=== PATIENT | female | born 1980 | race Caucasian/White ===

== ENCOUNTER 2020-01-12 20:26 | Inpatient (IN) | payer MEDICAID ==
[~2020-01-12] VITALS: Ht 157.5 cm; Wt 80.0 kg
[2020-01-12] MEDS ORDERED: heparin 25,000 UNIT/250ml bag 250 ML IV SCH (20:35)
[2020-01-12 21:00] LABS: BASOPHILS # (AUTO) 0.1 X10'3 (0-0.2); BASOPHILS % (AUTO) 0.8 % (0-1); EOSINOPHILS % (AUTO) 0.6 % (0-6); HEMATOCRIT 44.9 % (35.0-45.0); HEMOGLOBIN 14.8 g/dl (12.0-16.0); LYMPHOCYTES # (AUTO) 1.6 X10'3 (1.1-4.8); LYMPHOCYTES % (AUTO) 22.9 % (21-51); MEAN CORPUSCULAR HEMOGLOBIN 29.4 PG (27.0-31.0); MEAN CORPUSCULAR VOLUME 89.1 FL (78-98); MEAN PLATELET VOLUME 8.9 FL (7.4-10.4); MONOCYTES # (AUTO) 0.8 X10'3 (0-0.9); MONOCYTES % (AUTO) 10.7 % (2-12); NEUTROPHILS # (AUTO) 4.6 X10'3 (1.8-7.7); PLATELET COUNT 208 X10'3 (140-440); RED BLOOD COUNT 5.04 X10'6 (4.20-5.60); RED CELL DISTRIBUTION WIDTH 17.9 % (11.5-14.5)
[2020-01-12] MEDS ORDERED: CARV3.122 PO (21:11)
[2020-01-12] MEDS ORDERED: FURO-150 PO (21:11)
[2020-01-12] MEDS ORDERED: SPIR25TA5 PO (21:11)
[2020-01-12] MEDS ORDERED: LISI-600 PO (21:11)
[2020-01-12 21:13] LABS: ALANINE AMINOTRANSFERASE 26 U/L (12-78); ALBUMIN 2.7 G/DL (3.4-5.0); ALBUMIN/GLOBULIN RATIO 0.7 (1.1-1.5); ALKALINE PHOSPHATASE 98 IU/L (46-116); ANION GAP 7 (8-16); ASPARTATE AMINO TRANSFERASE 21 U/L (10-37); BILIRUBIN,TOTAL 1.1 MG/DL (0.1-1.0); BLOOD UREA NITROGEN 12 MG/DL (7-18); BUN/CREATININE RATIO 11.8 (6.6-38.0); CHLORIDE 105 MMOL/L (99-107); CREATININE 1.02 MG/DL (0.40-0.90); GLUCOSE 112 MG/DL (70-104); POTASSIUM 3.3 MMOL/L (3.5-5.1); SODIUM 142 MMOL/L (135-145); TOTAL CARBON DIOXIDE 29.7 MMOL/L (24-32); TOTAL PROTEIN 6.6 G/DL (6.4-8.2); eGFR 60 ML/MIN
[2020-01-12 21:20] LABS: PARTIAL THROMBOPLASTIN TIME 76 SECONDS (22-32)
[2020-01-12] MEDS ORDERED: iohexol 350MG/ML 100ml bottle IV ONE (22:12)
--- NOTE | 2020-01-12 22:14 | NUR ---
DR. MCLAUGHLIN STATED PATIENT COULD EAT
--- NOTE | 2020-01-12 23:25 | NUR ---
DR. JONES AT BEDSIDE ASSESSING PATIENT FOR ADMISSION
[2020-01-12] MEDS ORDERED: ondansetron/PF 4mg/2ml inj IV PRN (23:35)
[2020-01-12] MEDS ORDERED: potassium Cl 20 mEq SR tablet PO PRN ×2 (23:35)
[2020-01-12] MEDS ORDERED: mag hydrox/Alum hydrox/simeth 30ml oral suspension PO PRN (23:35)
[2020-01-12] MEDS ORDERED: potassium CL 10mEq/100ml bag 100 ML IV PRN ×2 (23:35)
[2020-01-12] MEDS ORDERED: magnesium hydroxide 30ml (MOM) UD suspension PO PRN (23:35)
[2020-01-12] MEDS: heparin 25,000 UNIT/250ml bag 250 ML IV SCH (23:45)
[2020-01-13] VITALS (8 sets, daily range): BP systolic 106–146; BP diastolic 64–96
--- NOTE | 2020-01-13 02:07 | NUR ---
Called Dr. Rangel regarding the pain medication. He ordered Narco 5/325 q4hr PRN for Moderate to Severe pain. No other orders were given at this time.
[2020-01-13] MEDS: HYDROcodone/acetaminophen 5mg/325mg tablet PO PRN ×4 (02:22→18:39)
[2020-01-13 03:28] LABS: BASOPHILS # (AUTO) 0.1 X10'3 (0-0.2); BASOPHILS % (AUTO) 0.8 % (0-1); EOSINOPHILS % (AUTO) 0.7 % (0-6); HEMATOCRIT 43.5 % (35.0-45.0); HEMOGLOBIN 14.4 g/dl (12.0-16.0); LYMPHOCYTES # (AUTO) 1.6 X10'3 (1.1-4.8); LYMPHOCYTES % (AUTO) 23.6 % (21-51); MEAN CORPUSCULAR HEMOGLOBIN 29.5 PG (27.0-31.0); MEAN CORPUSCULAR VOLUME 89.2 FL (78-98); MEAN PLATELET VOLUME 8.8 FL (7.4-10.4); MONOCYTES # (AUTO) 0.9 X10'3 (0-0.9); MONOCYTES % (AUTO) 13.1 % (2-12); NEUTROPHILS # (AUTO) 4.2 X10'3 (1.8-7.7); NEUTROPHILS % (AUTO) 61.8 % (42-75); PLATELET COUNT 186 X10'3 (140-440); RED BLOOD COUNT 4.88 X10'6 (4.20-5.60); RED CELL DISTRIBUTION WIDTH 17.5 % (11.5-14.5); WHITE BLOOD COUNT 6.8 X10'3 (4.5-11.0)
[2020-01-13 03:45] LABS: ALANINE AMINOTRANSFERASE 16 U/L (12-78); ALBUMIN 2.4 G/DL (3.4-5.0); ALBUMIN/GLOBULIN RATIO 0.7 (1.1-1.5); ALKALINE PHOSPHATASE 95 IU/L (46-116); ANION GAP 10 (8-16); ASPARTATE AMINO TRANSFERASE 22 U/L (10-37); BILIRUBIN,TOTAL 1.2 MG/DL (0.1-1.0); BLOOD UREA NITROGEN 14 MG/DL (7-18); CALCIUM 8.9 MG/DL (8.5-10.1); CHLORIDE 105 MMOL/L (99-107); GLUCOSE 203 MG/DL (70-104); POTASSIUM 3.7 MMOL/L (3.5-5.1); SODIUM 139 MMOL/L (135-145); TOTAL CARBON DIOXIDE 23.9 MMOL/L (24-32); eGFR 61 ML/MIN
[2020-01-13] MEDS: heparin 25,000 UNIT/250ml bag 250 ML IV SCH (05:39)
--- NOTE | 2020-01-13 06:21 | NUR ---
Problems reprioritized. Patient report shelby Anderson, questions answered & plan of care reviewed with .
--- NOTE | 2020-01-13 06:30 | NUR ---
Patient in room MED 308. I have received report from Madan EDWARDS and had the opportunity to ask questions and assume patient care.
[2020-01-13] MEDS: K and/or MAG REPLACEMENT MC SCH ×2 (07:48→20:00)
[2020-01-13] MEDS ORDERED: carVEDilol 3.125mg tablet PO SCH (08:00)
[2020-01-13] MEDS ORDERED: CHOL50004 PO (10:10)
[2020-01-13] MEDS ORDERED: INSU100I39 SQ (10:10)
[2020-01-13] MEDS ORDERED: HYDR-4069 PO (10:10)
[2020-01-13] MEDS ORDERED: INSU100I31 SQ (10:10)
[2020-01-13] MEDS ORDERED: IBUP-1985 PO (10:13)
[2020-01-13] MEDS: levoFLOXACIN-Levaquin 500mg/D5 100 ML IV SCH (11:57)
--- NOTE | 2020-01-13 14:29 | NUR ---
DR. STILES PAGED: PAGER ID: [phone] MESSAGE: [phone]: [facility] REC REVIEWED, WAITING FOR YOU. CAN WE START HYPERGLYCEMIC PROTOCOL? TY NURSE JEREMIAH [id number]
[2020-01-13] MEDS: vancomycin/NS 1 GM ADD-VANTAGE 250 ML IV SCH (14:36)
--- NOTE | 2020-01-13 15:55 | NUR ---
dr. arteaga paged: PAGER ID: [phone] MESSAGE: [phone]: CLIFFORD - changed her mind. wants to be Full Code. Maybe mental health eval too nurse yonny [phone]
--- NOTE | 2020-01-13 18:30 | NUR ---
Problems reprioritized. Patient report given, questions answered & plan of care reviewed with Madan EDWARDS.
[2020-01-13] MEDS: insulin Lispro (HumaLOG) vial - multi-dose SQ SCH (18:38)
[2020-01-13] MEDS: furosemide 20 MG/2 ML vial IV SCH (19:29)
[2020-01-13] MEDS: carvedilol 6.25mg tablet PO SCH (19:29)
[2020-01-13] MEDS: hydrALAZINE 25 MG tablet PO SCH (19:29)
[2020-01-13] MEDS: lisinopril 20mg tablet PO SCH (21:39)
[2020-01-13] MEDS: insulin glargine (Lantus) pen - multi-dose SQ SCH (21:44)
[2020-01-14] MEDS: vancomycin/NS 1 GM ADD-VANTAGE 250 ML IV SCH ×3 (00:46→23:13)
[2020-01-14] MEDS: heparin 25,000 UNIT/250ml bag 250 ML IV SCH ×2 (00:54→23:25)
[2020-01-14] MEDS: HYDROcodone/acetaminophen 5mg/325mg tablet PO PRN ×3 (01:59→21:29)
[2020-01-14 02:00] VITALS: BP 96/71
[2020-01-14 04:15] LABS: BASOPHILS % (AUTO) 0.7 % (0-1); EOSINOPHILS # (AUTO) 0.1 X10'3 (0-0.9); HEMATOCRIT 40.9 % (35.0-45.0); HEMOGLOBIN 13.3 g/dl (12.0-16.0); LYMPHOCYTES # (AUTO) 1.6 X10'3 (1.1-4.8); MEAN CORPUSCULAR HEMOGLOBIN 29.1 PG (27.0-31.0); MEAN CORPUSCULAR HGB CONC 32.6 g/dL (33.0-36.5); MEAN CORPUSCULAR VOLUME 89.4 FL (78-98); MEAN PLATELET VOLUME 9.1 FL (7.4-10.4); MONOCYTES # (AUTO) 0.9 X10'3 (0-0.9); MONOCYTES % (AUTO) 13.1 % (2-12); NEUTROPHILS # (AUTO) 3.9 X10'3 (1.8-7.7); NEUTROPHILS % (AUTO) 60.2 % (42-75); PLATELET COUNT 194 X10'3 (140-440); RED BLOOD COUNT 4.58 X10'6 (4.20-5.60); RED CELL DISTRIBUTION WIDTH 17.5 % (11.5-14.5); WHITE BLOOD COUNT 6.5 X10'3 (4.5-11.0)
[2020-01-14 04:33] LABS: ALANINE AMINOTRANSFERASE 24 U/L (12-78); ALBUMIN 2.2 G/DL (3.4-5.0); ALBUMIN/GLOBULIN RATIO 0.6 (1.1-1.5); ALKALINE PHOSPHATASE 103 IU/L (46-116); ANION GAP 7 (8-16); ASPARTATE AMINO TRANSFERASE 22 U/L (10-37); BILIRUBIN,TOTAL 0.6 MG/DL (0.1-1.0); BLOOD UREA NITROGEN 14 MG/DL (7-18); BUN/CREATININE RATIO 13.7 (6.6-38.0); CALCIUM 8.3 MG/DL (8.5-10.1); CHLORIDE 102 MMOL/L (99-107); CREATININE 1.02 MG/DL (0.40-0.90); GLUCOSE 234 MG/DL (70-104); POTASSIUM 3.8 MMOL/L (3.5-5.1); SODIUM 134 MMOL/L (135-145); TOTAL CARBON DIOXIDE 25.5 MMOL/L (24-32); TOTAL PROTEIN 5.9 G/DL (6.4-8.2); eGFR 60 ML/MIN
[2020-01-14 06:00] VITALS: BP 102/74
--- NOTE | 2020-01-14 06:20 | NUR ---
Problems reprioritized. Patient report given Pee, questions answered & plan of care reviewed with .
--- NOTE | 2020-01-14 06:46 | NUR ---
Patient in room MED 308. I have received report from GRACE Lucas and had the opportunity to ask questions and assume patient care.
[2020-01-14] MEDS: insulin Lispro (HumaLOG) vial - multi-dose SQ SCH ×3 (08:00→19:56)
[2020-01-14] MEDS: K and/or MAG REPLACEMENT MC SCH ×2 (08:00→20:00)
[2020-01-14] MEDS: furosemide 20 MG/2 ML vial IV SCH ×2 (08:49→19:50)
[2020-01-14] MEDS: hydrALAZINE 25 MG tablet PO SCH ×2 (09:01→19:50)
[2020-01-14] MEDS: carvedilol 6.25mg tablet PO SCH ×2 (09:01→19:50)
[2020-01-14] MEDS: vitamin D (cholecalciferol) 1,000 unit tablet PO SCH (09:02)
[2020-01-14] MEDS: levoFLOXACIN-Levaquin 500mg/D5 100 ML IV SCH (09:09)
[2020-01-14] MEDS: spironolactone 25 MG tablet PO SCH (09:36)
--- NOTE | 2020-01-14 10:45 | NUR ---
Pt has been unplugging herself from monitor, unplugging IV pump from wall, and going into bathroom without calling nurses. she has done this several times this morning already. When nursing spoke to her about this and asked her to use bedside commode she refused. She states she cannot wait to go to the bathroom so she will not wet herself. Nursing educated her that with her heart function how it is and her wanting to be a full code that it is of vital importance we are able to monitor continuously. She agreed that she would call nurses or use bedside commode. Nursing also suggested that we take her to the bathroom every 2-3 hours and she stated the she would rather just use the bedside commode. MD made aware of non-compliance issues. Will continue to monitor for behaviors.
[2020-01-14 11:00] VITALS: BP 90/59
--- NOTE | 2020-01-14 12:14 | NUR ---
dr. arteaga paged: PAGER ID: [phone] MESSAGE: [phone]: CLIFFORD - wants to be full code, did you talk with her? thanks nurse Bowers
--- NOTE | 2020-01-14 14:50 | NUR ---
Pt had refused BG testing prior to lunch because student did it one time and did not get enough blood from finger so she refused everyone. She picked at her food until 1445 but had a 1300 order for 6 units of humalog she refused plus nursing had no BG check on her. Will attempt for dinner BG and insulin. She has had 2 bouts you screaming from her room because she stated she missed a phone call each time on her cell phone that was right next to her and stated because she could not get it. Two nurses went in for the screaming episode. When asked where her call light was and why she was not using it (the call light was on her lap in the bed) she would not answer.
[2020-01-14 15:02] VITALS: BP 107/71
[2020-01-14 18:20] LABS: HEMOGLOBIN A1C 10.2 % (4.5-6.2)
--- NOTE | 2020-01-14 18:30 | NUR ---
Problems reprioritized. Patient report given, questions answered & plan of care reviewed with Amrit EDWARDS.
[2020-01-14 19:00] VITALS: BP 112/70
[2020-01-14] MEDS: lactobacillus rhamnosus 10,000 MMU CELLS/CAPSULE PO SCH (19:49)
[2020-01-14] MEDS: lisinopril 20mg tablet PO SCH (21:21)
[2020-01-14] MEDS: insulin glargine (Lantus) pen - multi-dose SQ SCH (21:28)
[2020-01-14 23:00] VITALS: BP 108/68
[2020-01-14] MEDS ORDERED: VANCOMYCIN LEVEL IV ONE (23:30)
--- NOTE | 2020-01-15 00:03 | NUR ---
Patient in room MED 308. I have received report from Shayy EDWARDS and had the opportunity to ask questions and assume patient care.
[2020-01-15 03:00] VITALS: BP 104/63
[2020-01-15 04:59] LABS: BASOPHILS % (AUTO) 0.5 % (0-1); EOSINOPHILS # (AUTO) 0.1 X10'3 (0-0.9); EOSINOPHILS % (AUTO) 1.1 % (0-6); HEMATOCRIT 42.9 % (35.0-45.0); HEMOGLOBIN 13.8 g/dl (12.0-16.0); LYMPHOCYTES # (AUTO) 1.7 X10'3 (1.1-4.8); LYMPHOCYTES % (AUTO) 28.7 % (21-51); MEAN CORPUSCULAR HEMOGLOBIN 28.7 PG (27.0-31.0); MEAN CORPUSCULAR HGB CONC 32.2 g/dL (33.0-36.5); MEAN CORPUSCULAR VOLUME 89.2 FL (78-98); MEAN PLATELET VOLUME 9.1 FL (7.4-10.4); MONOCYTES # (AUTO) 0.7 X10'3 (0-0.9); MONOCYTES % (AUTO) 11.5 % (2-12); NEUTROPHILS # (AUTO) 3.4 X10'3 (1.8-7.7); NEUTROPHILS % (AUTO) 58.2 % (42-75); PLATELET COUNT 214 X10'3 (140-440); RED BLOOD COUNT 4.81 X10'6 (4.20-5.60); RED CELL DISTRIBUTION WIDTH 17.5 % (11.5-14.5); WHITE BLOOD COUNT 5.8 X10'3 (4.5-11.0)
[2020-01-15 05:17] LABS: ALANINE AMINOTRANSFERASE 33 U/L (12-78); ALBUMIN 2.3 G/DL (3.4-5.0); ALBUMIN/GLOBULIN RATIO 0.6 (1.1-1.5); ALKALINE PHOSPHATASE 130 IU/L (46-116); ANION GAP 7 (8-16); ASPARTATE AMINO TRANSFERASE 28 U/L (10-37); BILIRUBIN,TOTAL 0.4 MG/DL (0.1-1.0); BLOOD UREA NITROGEN 15 MG/DL (7-18); BUN/CREATININE RATIO 15.6 (6.6-38.0); CALCIUM 8.5 MG/DL (8.5-10.1); CHLORIDE 104 MMOL/L (99-107); CREATININE 0.96 MG/DL (0.40-0.90); GLUCOSE 125 MG/DL (70-104); POTASSIUM 4.1 MMOL/L (3.5-5.1); SODIUM 138 MMOL/L (135-145); TOTAL CARBON DIOXIDE 27.3 MMOL/L (24-32); TOTAL PROTEIN 6.1 G/DL (6.4-8.2); eGFR 64 ML/MIN
[2020-01-15] MEDS ORDERED: heparin 10,000 units/1 ML INJ IV PRN (05:35)
[2020-01-15 06:00] VITALS: BP 99/69
--- NOTE | 2020-01-15 06:31 | NUR ---
Problems reprioritized. Patient report given, questions answered & plan of care reviewed with Socorro EDWARDS.
--- NOTE | 2020-01-15 06:34 | NUR ---
Patient in room MED 308. I have received report from fabiana wang and had the opportunity to ask questions and assume patient care.
[2020-01-15] MEDS: insulin Lispro (HumaLOG) vial - multi-dose SQ SCH ×2 (08:00→13:00)
[2020-01-15] MEDS ORDERED: levoFLOXACIN 500mg tablet PO SCH (08:00)
[2020-01-15] MEDS: K and/or MAG REPLACEMENT MC SCH (08:00)
[2020-01-15] MEDS: lactobacillus rhamnosus 10,000 MMU CELLS/CAPSULE PO SCH (08:47)
[2020-01-15] MEDS: hydrALAZINE 25 MG tablet PO SCH (08:47)
[2020-01-15] MEDS: carvedilol 6.25mg tablet PO SCH (08:47)
[2020-01-15] MEDS: furosemide 20 MG/2 ML vial IV SCH (08:47)
[2020-01-15] MEDS: vitamin D (cholecalciferol) 1,000 unit tablet PO SCH (08:47)
[2020-01-15] MEDS: spironolactone 25 MG tablet PO SCH (08:47)
[2020-01-15 11:00] VITALS: BP 110/75
--- NOTE | 2020-01-15 11:45 | NUR ---
PATIENT REFUSING NURSING ASSISTANCE WITH TRANSFERS TO BEDSIDE COMMODE
[2020-01-15] MEDS ORDERED: VANCOMYCIN 1,500MG inj. 1,500 MG in normal saline 500ml IV soln 500 ML IV SCH (12:00)
--- NOTE | 2020-01-15 12:00 | NUR ---
PAGER ID: [phone] MESSAGE: [phone]: VENESSA MUNIZ ultrasounds done, tech mentioned chronic thrombus present, no official report at this time. nurse Elissa [phone]
[2020-01-15] MEDS ORDERED: FURO-150 PO (12:44)
[2020-01-15] MEDS ORDERED: CARV3.122 PO (12:44)
[2020-01-15] MEDS ORDERED: LEVO500T89 PO (12:45)
[2020-01-15] MEDS ORDERED: APIX5TAB3 PO (13:42)
--- NOTE | 2020-01-15 14:59 | NUR ---
Pt with A1c 10.2% seen at bedside. Pt reports she currently does not see an MD for DM management however states she takes her long acting and short acting insulin per rx. Pt states she checks her BG levels BID in the morning and before dinner with resulting numbers 215-245 recently over the last week, previously in the 360 range per pt. Pt reports A1c was in the 12% range, down to 11% earlier this year in September; no records in EMR to confirm. Pt declines DM education at this time stating she doesn't need it. RD contact information provided. Pt endorses a good appetite which is evident with documented 75-100% PO intake on heart healthy CHO controlled diet. Pt denies food allergies, difficulty chewing/swallowing, or constipation/diarrhea. LBM 01/12. PRN bowel care available however not documented to have been administered yet. Pt declines nutrition intervention at this time d/t pending discharge. Will continue to follow. Addendum: 01/15/20 at [address] Amended: Links added.
[2020-01-15] MEDS ORDERED: apixaban 5mg tablet PO SCH (15:10)
--- NOTE | 2020-01-15 16:00 | NUR ---
revieweed all discharge instructions,prescriptions faxed to clinic in [place] and confirmed,pt aware of need for f/u appt within 1 week,mahi dc'd from left hand and rac,sites clear
--- NOTE | 2020-01-15 17:42 | NUR ---
pt pio'd with all belongings via w/c
[2020-01-16] MEDS ORDERED: VANCOMYCIN LEVEL IV ONE (23:30)
== END 2020-01-15 17:46 | disposition home or self-care (01) | DRG 134 ==
LOC: ER 20:26 → ED HOLD 23:56 → MED 3N 01-13 00:25
PROVIDERS: ADMIT Internal Medicine; ATTEND Internal Medicine
PROC: B32T1ZZ Computerized Tomography (CT Scan) of Left Pulmonary Artery using Low Osmolar Contrast (ICD-10-PCS; principal; 2020-01-12)
PROC: B3201ZZ Computerized Tomography (CT Scan) of Thoracic Aorta using Low Osmolar Contrast (ICD-10-PCS; 2020-01-12)
PROC: B32S1ZZ Computerized Tomography (CT Scan) of Right Pulmonary Artery using Low Osmolar Contrast (ICD-10-PCS; 2020-01-12)
DX: I26.09 Other pulmonary embolism with acute cor pulmonale (principal); I50.23 Acute on chronic systolic (congestive) heart failure; J18.9 Pneumonia, unspecified organism; E11.42 Type 2 diabetes mellitus with diabetic polyneuropathy; E11.65 Type 2 diabetes mellitus with hyperglycemia; F15.10 Other stimulant abuse, uncomplicated; I82.531 Chronic embolism and thrombosis of right popliteal vein; Z20.828 Contact with and (suspected) exposure to other viral communicable diseases; Z66 Do not resuscitate; I42.7 Cardiomyopathy due to drug and external agent; F17.210 Nicotine dependence, cigarettes, uncomplicated; F12.90 Cannabis use, unspecified, uncomplicated; Z63.8 Other specified problems related to primary support group; Z79.899 Other long term (current) drug therapy
CPT/HCPCS: 36415; 71275; 80053; 80202; 82948; 83036; 84484; 85025; 85610; 85730; 87040; 87081; 87635; 93005; 93306; 93922; 93926; 93970; 96365; 99285; G0378; J1644; J1815; J1940; J1956; J3370; J7040; Q9967

== ENCOUNTER 2020-08-17 21:10 | Inpatient (IN) | payer MEDICAID ==
[~2020-08-17] VITALS: Ht 157.5 cm; Wt 77.3 kg
[~2020-08-17 21:10] MED LIST: APIX5TAB3 PO; CARV3.122 PO; CHOL50004 PO; FURO-150 PO; HYDR-4069 PO; INSU100I31 SQ; INSU100I39 SQ; LEVO500T89 PO; LISI-600 PO; SPIR25TA5 PO
[2020-08-17 22:05] LABS: BASOPHILS # (AUTO) 0.1 X10'3 (0-0.2); BASOPHILS % (AUTO) 1.1 % (0-1); EOSINOPHILS # (AUTO) 0.1 X10'3 (0-0.9); EOSINOPHILS % (AUTO) 0.8 % (0-6); HEMATOCRIT 46.7 % (35.0-45.0); HEMOGLOBIN 15.3 g/dl (12.0-16.0); LYMPHOCYTES # (AUTO) 1.3 X10'3 (1.1-4.8); LYMPHOCYTES % (AUTO) 16.7 % (21-51); MEAN CORPUSCULAR HEMOGLOBIN 28.5 PG (27.0-31.0); MEAN CORPUSCULAR HGB CONC 32.7 g/dL (33.0-36.5); MEAN CORPUSCULAR VOLUME 87.3 FL (78-98); MEAN PLATELET VOLUME 9.2 FL (7.4-10.4); MONOCYTES # (AUTO) 0.7 X10'3 (0-0.9); MONOCYTES % (AUTO) 9.1 % (2-12); NEUTROPHILS # (AUTO) 5.6 X10'3 (1.8-7.7); NEUTROPHILS % (AUTO) 72.3 % (42-75); PLATELET COUNT 277 X10'3 (140-440); RED BLOOD COUNT 5.35 X10'6 (4.20-5.60); RED CELL DISTRIBUTION WIDTH 16.8 % (11.5-14.5); WHITE BLOOD COUNT 7.7 X10'3 (4.5-11.0)
[2020-08-17 22:20] LABS: ALANINE AMINOTRANSFERASE 57 U/L (12-78); ALBUMIN 2.3 G/DL (3.4-5.0); ALBUMIN/GLOBULIN RATIO 0.5 (1.1-1.5); ALKALINE PHOSPHATASE 156 IU/L (46-116); ANION GAP 6 (8-16); ASPARTATE AMINO TRANSFERASE 30 U/L (10-37); BILIRUBIN,TOTAL 1.3 MG/DL (0.1-1.0); BLOOD UREA NITROGEN 15 MG/DL (7-18); BUN/CREATININE RATIO 15.3 (6.6-38.0); CALCIUM 9.1 MG/DL (8.5-10.1); CHLORIDE 96 MMOL/L (99-107); CREATININE 0.98 MG/DL (0.40-0.90); GLUCOSE 282 MG/DL (70-104); POTASSIUM 4.7 MMOL/L (3.5-5.1); SODIUM 131 MMOL/L (135-145); TOTAL CARBON DIOXIDE 28.7 MMOL/L (24-32); TOTAL PROTEIN 6.9 G/DL (6.4-8.2); eGFR 63 ML/MIN
[2020-08-17 22:28] LABS: TROPONIN I < 0.04 NG/ML (0.0-0.05)
[2020-08-17] MEDS ORDERED: furosemide 10 MG/1 ML 10ml inj IV ONE (22:55)
[2020-08-17] MEDS ORDERED: iohexol 350MG/ML 100ml bottle IV ONE (23:01)
[2020-08-17] MEDS ORDERED: GABA-530 PO (23:41)
[2020-08-17] MEDS ORDERED: magnesium 2GM in 50ml NS 50 ML IV PRN (23:50)
[2020-08-17] MEDS ORDERED: mag hydrox/Alum hydrox/simeth 30ml oral suspension PO PRN (23:50)
[2020-08-17] MEDS ORDERED: magnesium 4gm in 100ml NS 100 ML IV PRN (23:50)
[2020-08-17] MEDS ORDERED: magnesium hydroxide 30ml (MOM) UD suspension PO PRN (23:50)
[2020-08-17] MEDS ORDERED: magnesium Cl slow-release 64mg tablet PO PRN (23:50)
[2020-08-17] MEDS ORDERED: potassium Cl 40MEQ/1/2NS 520ml 520 ML IV PRN ×2 (23:50)
[2020-08-17] MEDS ORDERED: potassium Cl 20 mEq SR tablet PO PRN ×2 (23:50)
[2020-08-17] MEDS ORDERED: acetaminophen 325mg tablet PO PRN (23:50)
[2020-08-18 00:37] LABS: C-REACTIVE PROTEIN 2.12 MG/DL (0.0-0.5)
[2020-08-18 00:39] LABS: D-DIMER 2.74 MG/L FEU (0-0.50)
[2020-08-18] MEDS ORDERED: glucagon, human recombinant 1mg kit SUBCUT PRN (01:05)
[2020-08-18] MEDS ORDERED: MESSAGE TO PHARMACY PO ONE (01:05)
[2020-08-18] MEDS ORDERED: dextrose ORAL solution 15 GM/59 ML bottle PO PRN ×2 (01:05)
[2020-08-18] MEDS ORDERED: dextrose 50%-water 50ml dispensing syringe IV PRN ×2 (01:05)
[2020-08-18 01:39] LABS: HEMOGLOBIN A1C 10.4 % (4.5-6.2)
[2020-08-18] MEDS: HYDROcodone/acetaminophen 10/325mg tab PO PRN ×2 (02:54→08:07)
[2020-08-18 04:17] LABS: BASOPHILS # (AUTO) 0.1 X10'3 (0-0.2); BASOPHILS % (AUTO) 0.8 % (0-1); EOSINOPHILS % (AUTO) 0.7 % (0-6); HEMATOCRIT 43.4 % (35.0-45.0); HEMOGLOBIN 14.2 g/dl (12.0-16.0); LYMPHOCYTES # (AUTO) 1.2 X10'3 (1.1-4.8); LYMPHOCYTES % (AUTO) 16.2 % (21-51); MEAN CORPUSCULAR HEMOGLOBIN 28.5 PG (27.0-31.0); MEAN CORPUSCULAR HGB CONC 32.7 g/dL (33.0-36.5); MEAN CORPUSCULAR VOLUME 86.9 FL (78-98); MEAN PLATELET VOLUME 9.3 FL (7.4-10.4); MONOCYTES # (AUTO) 0.7 X10'3 (0-0.9); MONOCYTES % (AUTO) 8.9 % (2-12); NEUTROPHILS # (AUTO) 5.4 X10'3 (1.8-7.7); NEUTROPHILS % (AUTO) 73.4 % (42-75); PLATELET COUNT 233 X10'3 (140-440); RED CELL DISTRIBUTION WIDTH 16.8 % (11.5-14.5); WHITE BLOOD COUNT 7.3 X10'3 (4.5-11.0)
[2020-08-18 04:26] LABS: ALANINE AMINOTRANSFERASE 46 U/L (12-78); ALBUMIN 2.1 G/DL (3.4-5.0); ALBUMIN/GLOBULIN RATIO 0.5 (1.1-1.5); ALKALINE PHOSPHATASE 132 IU/L (46-116); ANION GAP 8 (8-16); ASPARTATE AMINO TRANSFERASE 24 U/L (10-37); BILIRUBIN,TOTAL 1.2 MG/DL (0.1-1.0); BLOOD UREA NITROGEN 14 MG/DL (7-18); BUN/CREATININE RATIO 16.5 (6.6-38.0); CALCIUM 8.8 MG/DL (8.5-10.1); CHLORIDE 98 MMOL/L (99-107); CREATININE 0.85 MG/DL (0.40-0.90); GLUCOSE 305 MG/DL (70-104); POTASSIUM 4.1 MMOL/L (3.5-5.1); SODIUM 133 MMOL/L (135-145); TOTAL CARBON DIOXIDE 26.7 MMOL/L (24-32); TOTAL PROTEIN 6.1 G/DL (6.4-8.2); eGFR 74 ML/MIN
[2020-08-18 04:30] LABS: MAGNESIUM 1.6 MG/DL (1.5-2.4)
[2020-08-18] MEDS: K and/or MAG REPLACEMENT MC SCH ×2 (08:00→20:00)
[2020-08-18] MEDS ORDERED: dexamethasone inj 6 MG in normal saline 100ml IV soln 100 ML IV SCH (08:00)
[2020-08-18] MEDS: furosemide 10 MG/1 ML 10ml inj IV SCH ×2 (08:08→20:43)
[2020-08-18] MEDS: dexamethasone 4mg/ml inj IV SCH (08:09)
[2020-08-18] MEDS: insulin Lispro (HumaLOG) vial - multi-dose SQ SCH ×3 (09:22→20:54)
[2020-08-18] MEDS ORDERED: FURO20TA4 PO (11:22)
[2020-08-18] MEDS ORDERED: CARV6.253 PO (11:22)
[2020-08-18] MEDS ORDERED: APIX5TAB3 PO (11:22)
[2020-08-18] MEDS: enoxaparin 80mg/0.8ml syringe SUBCUT SCH ×2 (12:30→20:41)
[2020-08-18] MEDS: ondansetron/PF 4mg/2ml inj IV PRN (14:47)
[2020-08-18] MEDS: morphine 2 MG/ML inj. syringe IV PRN ×2 (14:48→19:22)
--- NOTE | 2020-08-18 19:01 | NUR ---
PT FOUND [facility] AND HAD ROOM DOOR OPEN. PT REDIRECTED ON HAVING TO KEEP DOOR SHUT DUE TO EXPOSURE TO WHOLE ER.
[2020-08-18] MEDS: lisinopril 20mg tablet PO SCH (20:39)
[2020-08-18] MEDS: carvedilol 6.25mg tablet PO SCH (20:39)
[2020-08-18] MEDS: gabapentin 300mg capsule PO SCH (20:39)
[2020-08-18] MEDS: insulin glargine (Lantus) pen - multi-dose SQ SCH (20:48)
[2020-08-19] MEDS: HYDROcodone/acetaminophen 10/325mg tab PO PRN (02:27)
[2020-08-19] MEDS: morphine 2 MG/ML inj. syringe IV PRN ×3 (02:28→21:30)
[2020-08-19] MEDS: ondansetron/PF 4mg/2ml inj IV PRN (02:28)
[2020-08-19] MEDS: K and/or MAG REPLACEMENT MC SCH ×2 (08:00→20:00)
[2020-08-19] MEDS: enoxaparin 80mg/0.8ml syringe SUBCUT SCH ×2 (08:18→20:20)
[2020-08-19] MEDS: furosemide 10 MG/1 ML 10ml inj IV SCH ×2 (08:19→20:20)
[2020-08-19] MEDS: gabapentin 300mg capsule PO SCH ×3 (08:20→20:21)
[2020-08-19] MEDS: dexamethasone 4mg/ml inj IV SCH (08:20)
[2020-08-19] MEDS: spironolactone 25 MG tablet PO SCH (08:21)
[2020-08-19] MEDS: carvedilol 6.25mg tablet PO SCH ×2 (08:21→20:21)
[2020-08-19 09:45] LABS: BASOPHILS # (AUTO) 0.1 X10'3 (0-0.2); BASOPHILS % (AUTO) 0.6 % (0-1); EOSINOPHILS # (AUTO) 0.1 X10'3 (0-0.9); HEMATOCRIT 41.1 % (35.0-45.0); HEMOGLOBIN 13.3 g/dl (12.0-16.0); LYMPHOCYTES # (AUTO) 1.3 X10'3 (1.1-4.8); LYMPHOCYTES % (AUTO) 13.2 % (21-51); MEAN CORPUSCULAR HEMOGLOBIN 28.6 PG (27.0-31.0); MEAN CORPUSCULAR HGB CONC 32.3 g/dL (33.0-36.5); MEAN CORPUSCULAR VOLUME 88.5 FL (78-98); MEAN PLATELET VOLUME 8.7 FL (7.4-10.4); MONOCYTES # (AUTO) 0.7 X10'3 (0-0.9); MONOCYTES % (AUTO) 7.4 % (2-12); NEUTROPHILS # (AUTO) 7.7 X10'3 (1.8-7.7); NEUTROPHILS % (AUTO) 77.8 % (42-75); PLATELET COUNT 250 X10'3 (140-440); RED BLOOD COUNT 4.64 X10'6 (4.20-5.60)
[2020-08-19 10:07] LABS: ALANINE AMINOTRANSFERASE 41 U/L (12-78); ALBUMIN 2.2 G/DL (3.4-5.0); ALBUMIN/GLOBULIN RATIO 0.6 (1.1-1.5); ALKALINE PHOSPHATASE 120 IU/L (46-116); ANION GAP 6 (8-16); ASPARTATE AMINO TRANSFERASE 22 U/L (10-37); BILIRUBIN,TOTAL 0.8 MG/DL (0.1-1.0); BLOOD UREA NITROGEN 26 MG/DL (7-18); BUN/CREATININE RATIO 23.2 (6.6-38.0); CALCIUM 8.7 MG/DL (8.5-10.1); CHLORIDE 97 MMOL/L (99-107); CREATININE 1.12 MG/DL (0.40-0.90); GLUCOSE 200 MG/DL (70-104); MAGNESIUM 1.8 MG/DL (1.5-2.4); POTASSIUM 4.1 MMOL/L (3.5-5.1); SODIUM 134 MMOL/L (135-145); TOTAL CARBON DIOXIDE 31.1 MMOL/L (24-32); TOTAL PROTEIN 6.2 G/DL (6.4-8.2); eGFR 54 ML/MIN
--- NOTE | 2020-08-19 10:31 | NUR ---
SPOKE WITH DR CONWAY, WHO PREVIOUSLY SAW THE PT. ZORAIDA HAD SOME QUESTIONS FOR THE PT FOR ME TO ASK.
--- NOTE | 2020-08-19 12:09 | NUR ---
DR CONWAY PHONED AND WANTS TO SPEAK TO PATIENT VIA PHONE, GETTING PHONE FOR PATIENT
--- NOTE | 2020-08-19 12:15 | NUR ---
ATTEMPTED TO PLACE PHONE IN PATIENT'S ROOM. PHONE DID NOT WORK. DAYNA ALATORRE WAS UNABLE TO LOCATE ANOTHER PHONE TO FACILITATE CONVERSATION BETWEEN PATIENT AND DR CONWAY. DR CONWAY INFORMED THAT NO WORKING PHONE AVAILABLE. DR CONWAY AWARE THAT PATIENT WANTS TO TALK TO HER. PER CELI, DR CONWAY ASKED HOW TO TALK TO PATIENT, CELI SUGGESTED THAT SHE COME DOWN AND TALK TO THE PATIENT IN PERSON. PATIENT IS COVID POSITIVE AND IN COVID ISOLATION. DR CONWAY PAGED. CARTER GOODRICH RN INFORMED
--- NOTE | 2020-08-19 12:16 | NUR ---
called for more patient phones
--- NOTE | 2020-08-19 14:25 | NUR ---
per Dr. Patino,patient refused to dc'd and needs SW consult,SW paged.In addition,per MD Cueto said he will not do anything for this patient at this time.
[2020-08-19] MEDS: insulin Lispro (HumaLOG) vial - multi-dose SQ SCH ×2 (16:57→21:26)
[2020-08-19 17:35] VITALS: BP 117/86
[2020-08-19 18:00] VITALS: BP 117/86
--- NOTE | 2020-08-19 18:32 | NUR ---
Patient in room ORTHO 4007. I have received report from GRACE Jones and had the opportunity to ask questions and assume patient care.
[2020-08-19] MEDS: apixaban 5mg tablet PO SCH (20:21)
[2020-08-19] MEDS: lisinopril 20mg tablet PO SCH (20:21)
[2020-08-19] MEDS: insulin glargine (Lantus) pen - multi-dose SQ SCH (21:23)
[2020-08-19 22:00] VITALS: BP 119/73
[2020-08-20] MEDS: morphine 2 MG/ML inj. syringe IV PRN ×3 (01:29→20:29)
[2020-08-20 02:00] VITALS: BP 101/65
[2020-08-20] MEDS: HYDROcodone/acetaminophen 10/325mg tab PO PRN ×3 (04:34→23:27)
[2020-08-20 06:00] VITALS: BP 105/70
[2020-08-20 06:31] LABS: BASOPHILS % (AUTO) 0.3 % (0-1); EOSINOPHILS % (AUTO) 0.3 % (0-6); HEMATOCRIT 38.6 % (35.0-45.0); HEMOGLOBIN 12.7 g/dl (12.0-16.0); LYMPHOCYTES # (AUTO) 1.5 X10'3 (1.1-4.8); LYMPHOCYTES % (AUTO) 15.4 % (21-51); MEAN CORPUSCULAR HEMOGLOBIN 28.9 PG (27.0-31.0); MEAN CORPUSCULAR VOLUME 87.5 FL (78-98); MEAN PLATELET VOLUME 8.7 FL (7.4-10.4); MONOCYTES # (AUTO) 0.9 X10'3 (0-0.9); MONOCYTES % (AUTO) 9.2 % (2-12); NEUTROPHILS # (AUTO) 7.2 X10'3 (1.8-7.7); NEUTROPHILS % (AUTO) 74.8 % (42-75); PLATELET COUNT 259 X10'3 (140-440); RED BLOOD COUNT 4.41 X10'6 (4.20-5.60); RED CELL DISTRIBUTION WIDTH 17.2 % (11.5-14.5); WHITE BLOOD COUNT 9.6 X10'3 (4.5-11.0)
--- NOTE | 2020-08-20 06:40 | NUR ---
Problems reprioritized. Patient report given, questions answered & plan of care reviewed with GRACE Jones.
[2020-08-20 06:46] LABS: ALANINE AMINOTRANSFERASE 41 U/L (12-78); ALBUMIN 2.3 G/DL (3.4-5.0); ALBUMIN/GLOBULIN RATIO 0.6 (1.1-1.5); ALKALINE PHOSPHATASE 129 IU/L (46-116); ANION GAP 9 (8-16); ASPARTATE AMINO TRANSFERASE 18 U/L (10-37); BILIRUBIN,TOTAL 0.6 MG/DL (0.1-1.0); BLOOD UREA NITROGEN 29 MG/DL (7-18); BUN/CREATININE RATIO 28.2 (6.6-38.0); CALCIUM 8.4 MG/DL (8.5-10.1); CHLORIDE 95 MMOL/L (99-107); CREATININE 1.03 MG/DL (0.40-0.90); GLUCOSE 229 MG/DL (70-104); MAGNESIUM 1.9 MG/DL (1.5-2.4); POTASSIUM 4.1 MMOL/L (3.5-5.1); SODIUM 130 MMOL/L (135-145); TOTAL PROTEIN 6.3 G/DL (6.4-8.2); eGFR 59 ML/MIN
[2020-08-20] MEDS: dexamethasone 4mg/ml inj IV SCH (07:42)
[2020-08-20] MEDS: furosemide 10 MG/1 ML 10ml inj IV SCH ×2 (07:42→19:39)
[2020-08-20] MEDS: spironolactone 25 MG tablet PO SCH (07:43)
[2020-08-20] MEDS: gabapentin 300mg capsule PO SCH ×3 (07:43→19:58)
[2020-08-20] MEDS: enoxaparin 80mg/0.8ml syringe SUBCUT SCH (07:43)
[2020-08-20] MEDS: apixaban 5mg tablet PO SCH (07:43)
[2020-08-20] MEDS: carvedilol 6.25mg tablet PO SCH ×2 (07:43→19:35)
[2020-08-20] MEDS: K and/or MAG REPLACEMENT MC SCH ×2 (08:00→19:36)
[2020-08-20] MEDS: insulin Lispro (HumaLOG) vial - multi-dose SQ SCH ×4 (09:41→21:02)
[2020-08-20 10:00] VITALS: BP 99/61
--- NOTE | 2020-08-20 11:02 | NUR ---
DM education, patient admitted with Hgb A1c of 10.4%, Patient was seen by RD last January and A1c was 10.2% at that time and received written and verbal education. Additional education is not needed at this time. Pt has RD contact information if any questions. Addendum: 08/20/20 at [address] Amended: Links added.
--- NOTE | 2020-08-20 12:00 | NUR ---
unable to doppler pulses. MD Carey aware. Doppler studies ordered
--- NOTE | 2020-08-20 17:34 | NUR ---
PAGER ID: [phone] MESSAGE: Karen [phone] Karen You- acute thrombus detected in the LE arterial system bilaterally. in the arterial study. Unable to perform Ceci due to low flow. Please advise. Thank you.
[2020-08-20] MEDS ORDERED: heparin 10,000 units/1 ML INJ IV ONE (17:50)
[2020-08-20 18:00] VITALS: BP 119/72
[2020-08-20 18:45] LABS: PARTIAL THROMBOPLASTIN TIME 27 SECONDS (22-32)
[2020-08-20] MEDS: heparin 25,000 UNIT/250ml bag 250 ML IV SCH (19:52)
[2020-08-20] MEDS: lisinopril 20mg tablet PO SCH (19:58)
[2020-08-20] MEDS: insulin glargine (Lantus) pen - multi-dose SQ SCH (21:00)
[2020-08-20 22:00] VITALS: BP 118/69
[2020-08-21 02:00] VITALS: BP 109/69
[2020-08-21 02:43] VITALS: BP 109/69
[2020-08-21 06:00] VITALS: BP 97/61
[2020-08-21] MEDS: carvedilol 6.25mg tablet PO SCH ×2 (07:27→20:00)
[2020-08-21] MEDS: gabapentin 300mg capsule PO SCH ×3 (07:27→21:00)
[2020-08-21] MEDS: dexamethasone 4mg/ml inj IV SCH (07:28)
[2020-08-21] MEDS: morphine 2 MG/ML inj. syringe IV PRN ×2 (07:28→14:48)
[2020-08-21 07:49] LABS: BASOPHILS # (AUTO) 0.1 X10'3 (0-0.2); BASOPHILS % (AUTO) 0.7 % (0-1); EOSINOPHILS % (AUTO) 0.5 % (0-6); HEMATOCRIT 42.2 % (35.0-45.0); HEMOGLOBIN 13.8 g/dl (12.0-16.0); LYMPHOCYTES # (AUTO) 1.5 X10'3 (1.1-4.8); LYMPHOCYTES % (AUTO) 15.3 % (21-51); MEAN CORPUSCULAR HGB CONC 32.7 g/dL (33.0-36.5); MEAN CORPUSCULAR VOLUME 88.8 FL (78-98); MEAN PLATELET VOLUME 9.4 FL (7.4-10.4); MONOCYTES % (AUTO) 9.8 % (2-12); NEUTROPHILS # (AUTO) 7.4 X10'3 (1.8-7.7); NEUTROPHILS % (AUTO) 73.7 % (42-75); PLATELET COUNT 261 X10'3 (140-440); RED BLOOD COUNT 4.75 X10'6 (4.20-5.60); RED CELL DISTRIBUTION WIDTH 17.4 % (11.5-14.5)
[2020-08-21 07:58] VITALS: BP 105/77
[2020-08-21] MEDS: spironolactone 25 MG tablet PO SCH (07:59)
[2020-08-21] MEDS: furosemide 10 MG/1 ML 10ml inj IV SCH ×2 (07:59→20:00)
[2020-08-21] MEDS: K and/or MAG REPLACEMENT MC SCH ×2 (08:00→20:00)
[2020-08-21 08:12] LABS: ALANINE AMINOTRANSFERASE 46 U/L (12-78); ALBUMIN 2.7 G/DL (3.4-5.0); ALBUMIN/GLOBULIN RATIO 0.6 (1.1-1.5); ALKALINE PHOSPHATASE 145 IU/L (46-116); ANION GAP 7 (8-16); ASPARTATE AMINO TRANSFERASE 32 U/L (10-37); BILIRUBIN,TOTAL 0.6 MG/DL (0.1-1.0); BLOOD UREA NITROGEN 33 MG/DL (7-18); BUN/CREATININE RATIO 28.9 (6.6-38.0); CHLORIDE 96 MMOL/L (99-107); CREATININE 1.14 MG/DL (0.40-0.90); GLUCOSE 80 MG/DL (70-104); MAGNESIUM 2.1 MG/DL (1.5-2.4); POTASSIUM 3.8 MMOL/L (3.5-5.1); SODIUM 133 MMOL/L (135-145); TOTAL CARBON DIOXIDE 30.5 MMOL/L (24-32); eGFR 53 ML/MIN
[2020-08-21] MEDS: insulin Lispro (HumaLOG) vial - multi-dose SQ SCH ×3 (09:12→19:03)
[2020-08-21 10:00] VITALS: BP 104/70
--- NOTE | 2020-08-21 10:22 | NUR ---
DM consult: Patient's A1c already addressed, see below. Pt presented with c/o SOB with known hx of CHF with a dilated cardiomyopathy and positive for COVID. Pt on a CHO controlled diet documented with 75-100% PO intake. D/w dietary to send double protein for satiety. LBM 08/20 documented with diarrhea. Pt awaiting LifeVest per MD notes. Will continue to follow and monitor need for further nutrition intervention. Recommendations: 1) Continue CHO controlled diet 2) Double eggs q breakfast, double meat BIDLD 3) Bowel care per rx 4) Scaled weights per rx Addendum: 08/21/20 at [address] Amended: Links added.
[2020-08-21] MEDS: HYDROcodone/acetaminophen 10/325mg tab PO PRN (12:20)
--- NOTE | 2020-08-21 12:48 | NUR ---
Dr Patino at bedside, pt is somewhat argumentative and accusatory in tone towards the MD regarding her plan of care.Pressured speech, dominating conversation. Dr Patino tried to explain what the plan of care was/is but was interrupted multiple times by patient. Patient states to me after MD leaves the room, that she felt resentful towards MD for the conversation they had yesterday, and that she is trying to stick up for herself.
[2020-08-21] MEDS: heparin 25,000 UNIT/250ml bag 250 ML IV SCH ×2 (14:49→16:16)
--- NOTE | 2020-08-21 15:49 | NUR ---
PAGER ID: [phone] MESSAGE: Karen Juanita9 [facility] in [phone]- ICU only has one covid bed and we are sending a different patient on bipap down there. I am getting the scan done for now
[2020-08-21] MEDS: heparin 10,000 units/1 ML INJ IV PRN (16:14)
--- NOTE | 2020-08-21 16:42 | NUR ---
Page sent to CT for Stat CTA
[2020-08-21] MEDS ORDERED: iohexol 350MG/ML 100ml bottle IV ONE (16:45)
[2020-08-21] MEDS ORDERED: HYDROmorphone 1 mg/ml syringe IV ONE (16:45)
[2020-08-21] MEDS ORDERED: iohexol 350 MG/ML 50ML vial IV ONE (16:48)
[2020-08-21] MEDS ORDERED: fentaNYL /PF 50mcg/ml 5ml ampule ONE ×2 (19:15)
[2020-08-21] MEDS ORDERED: NORepinephrine 8 MG in NS 250ml IV soln IV SCH (19:15)
[2020-08-21] MEDS ORDERED: MIDAZolam 1mg/ml 10ml vial ONE (19:15)
[2020-08-21] MEDS ORDERED: LIDOcaine 1% (10mg/ml) 2ml vial ONE (19:22)
[2020-08-21 19:24] VITALS: BP 112/75
[2020-08-21] MEDS ORDERED: epiNEPHrine 1 mg/ml 30ml MDV ONE (19:40)
[2020-08-21] MEDS ORDERED: propofol 10mg/ml 20ml vial IV ONE (20:15)
[2020-08-21] MEDS ORDERED: NORepinephrine 8 MG in NS 250 ML BAG (32 mcg/ml) IV ONE (20:15)
[2020-08-21] MEDS ORDERED: rocuronium 10mg/ml inj IV ONE (20:15)
[2020-08-21] MEDS ORDERED: DOBUTamine/D5W 500mg/250ml premix IV ONE (20:15)
[2020-08-21] MEDS ORDERED: sevoflurane 250ml liquid IH ONE (20:15)
[2020-08-21] MEDS ORDERED: cefazolin/dext.iso 2,000MG/50 ML BAG IV ONE (20:15)
[2020-08-21] MEDS: heparin 10,000 units/1 ML INJ ONE (20:35)
--- NOTE | 2020-08-21 20:36 | NUR ---
Attempt made to call report x3 to recovery nurse for patient
[2020-08-21] MEDS: lisinopril 20mg tablet PO SCH (21:00)
[2020-08-21 21:23] LABS: ABG BASE EXCESS -0.2 mmol/L (-2.0-2.0); ABG HCO3 22.5 mmol/L (22.0-26.0); ABG OXYGEN SATURATION 99.7 % (94-97); ABG PCO2 (T) 29.7 mmHg (32.0-45.0); ABG PO2 (T) 269.2 mmHg (75.0-100.0); FCOHb 0.4 % (0.0-3.9); FMetHb 0.2 % (0.0-1.5); FO2Hb 99.1 % (94-97); PATIENT TEMPERATURE 35.7; TOTAL HEMOGLOBIN 13.6 G/dl (12.0-16.0)
[2020-08-21] MEDS ORDERED: iohexol 300 MG/1 ML 50ml polymer ONE (22:44)
[2020-08-21 22:55] LABS: ABG BASE EXCESS 3.8 mmol/L (-2.0-2.0); ABG HCO3 25.6 mmol/L (22.0-26.0); ABG PCO2 (T) 28.7 mmHg (32.0-45.0); ABG PO2 (T) 61.3 mmHg (75.0-100.0); FCOHb 0.4 % (0.0-3.9); FMetHb 0.3 % (0.0-1.5); FO2Hb 94.3 % (94-97); PATIENT TEMPERATURE 35.8; TOTAL HEMOGLOBIN 12.9 G/dl (12.0-16.0)
[2020-08-21 23:39] LABS: PARTIAL THROMBOPLASTIN TIME > 139 SECONDS (22-32)
[2020-08-22] VITALS (22 sets, daily range): BP systolic 88–169; BP diastolic 49–100
[2020-08-22] MEDS: heparin 10,000 units/1 ML INJ ONE (00:30)
[2020-08-22 01:25] LABS: PARTIAL THROMBOPLASTIN TIME > 139 SECONDS (22-32)
[2020-08-22] MEDS ORDERED: iohexol 300 MG/1 ML 50ml polymer ONE (01:29)
[2020-08-22] MEDS ORDERED: NORepinephrine inj. 8 MG in normal saline 250ml IV soln 242 ML IV SCH (05:00)
[2020-08-22 05:08] LABS: PARTIAL THROMBOPLASTIN TIME > 139 SECONDS (22-32)
--- NOTE | 2020-08-22 05:30 | NUR ---
Received from OR via BED, accompanied by Anesthesiologist DR HEATH and report given by Anesthesiologist. PT SEDATED ON VENT, BILAT GROINS W/PROVENA WOUND VAC W/SETTNGS 125MMHG LCS, BILAT MEDIAL THIGHS/CALF'S W/ISLAND DRSG COVERING INCISION W/SILVIA CDI, BILAT LOWER CALF'S W/GAUZE DRSG COVERING OPEN FASCIOTOMY CDI. PATTERSON CATHETER TO GRAVITY DRAINAGE W/YELLOW URINE IN BAG. RIGHT FOOT COOL, UNABLE TO GET PULSES W/DOPPLER, LEFT FOOT WARM AND HAS DOPPLER PULSES, DR VELA IN TO SEE PT AND AWARE. Addendum: 08/22/20 at 0629 by Yakelin Mehta RN Amended: Links added.
[2020-08-22] MEDS: midazolam 100mg in NS 100ml 100 ML IV PRN ×2 (05:48→22:19)
[2020-08-22] MEDS: FENTANYL-0.9 % NACL/PF 100 ML IV PRN ×3 (05:49→20:11)
[2020-08-22 06:02] LABS: ABG BASE EXCESS 0.6 mmol/L (-2.0-2.0); ABG HCO3 22.3 mmol/L (22.0-26.0); ABG OXYGEN SATURATION 99.3 % (94-97); ABG PCO2 (T) 27.7 mmHg (32.0-45.0); ABG PO2 (T) 179.8 mmHg (75.0-100.0); FCOHb 0.4 % (0.0-3.9); FMetHb 0.3 % (0.0-1.5); FO2Hb 98.6 % (94-97); PATIENT TEMPERATURE 36.8; PEEP 5 cm H2O; RESPIRATORY RATE 12 b/min; TIDAL VOLUME 600 mL; TOTAL HEMOGLOBIN 13.5 G/dl (12.0-16.0)
--- NOTE | 2020-08-22 06:10 | NUR ---
CXR OBTAINED AND VIEWED BY DR HEATH. PT WAS RECOVERED IN ICU, PT OPENS EYES, NOT FOLLOWING COMMANDS YET, WAS TEARFUL, VERSED AND FENTANYL STARTED. RECEIVING RN ASSISTED W/RECOVERING PT, REPORT GIVEN. Addendum: 08/22/20 at 0632 by Yakelin Mehta RN Amended: Links added.
--- NOTE | 2020-08-22 06:46 | NUR ---
[facility]. I have received report from Estuardo EDWARDS and had the opportunity to ask questions and assume patient care. Addendum: 08/22/20 at 0646 by Ashely Crowder RN Amended: Links added.
[2020-08-22 07:19] LABS: PARTIAL THROMBOPLASTIN TIME > 139 SECONDS (22-32)
[2020-08-22] MEDS: DOBUTamine 2000 MCG/250ML BAG IV SCH (07:21)
--- NOTE | 2020-08-22 07:30 | NUR ---
Pt. bleeding from RIJ. Hair, including pony tail soaked with blood. Linen changed but 2 RN skin assessment and application of foam sacrum dressing not done because pt. is too unstable (low BP and bleeding.) 2 RN skin check was not done last noc. Pt. noted to be bleeding from right LE behind knee. Charge nurse aware and pressure dressing applied. Dr. Fleming aware of situation and stated to give 1L fluid bolus and check DIC panel. CVP 2.
[2020-08-22] MEDS: furosemide 10 MG/1 ML 10ml inj IV SCH ×2 (07:54→20:00)
[2020-08-22] MEDS: carvedilol 6.25mg tablet PO SCH ×2 (07:54→20:00)
[2020-08-22] MEDS: gabapentin 300mg capsule PO SCH ×3 (07:54→21:02)
[2020-08-22] MEDS: ceFAZolin/D5W- 1GM premix 50 ML IV SCH ×2 (07:54)
[2020-08-22] MEDS: spironolactone 25 MG tablet PO SCH (07:55)
[2020-08-22] MEDS: K and/or MAG REPLACEMENT MC SCH ×2 (07:55→20:00)
[2020-08-22] MEDS ORDERED: ceFAZolin/D5W- 1GM premix 50 ML IV SCH (08:00)
[2020-08-22 08:25] LABS: ISTAT ANION GAP 8 (8-12); ISTAT BUN 26 mg/dL (6-19); ISTAT CL 98 mmol/L (99-107); ISTAT CREATININE 0.6 mg/dL (0.6-1.1); ISTAT GLUCOSE 110 mg/dL (70-104); ISTAT HGB 12.2 g/dl (12.0-16.0); ISTAT Hct 36 %PCV (35-48); ISTAT IONIZED CALCIUM 1.04 mmol/L (1.03-1.32); ISTAT K 3.7 mmol/L (3.5-5.1); ISTAT NA 132 mmol/L (135-145); ISTAT TOTAL CO2 26 mmol/L (24-32); ISTAT eGFR > 90 ML/MIN; POC BUN/CREATININE RATIO 43.3 (6.6-38.0)
[2020-08-22 08:52] LABS: BASOPHILS % (AUTO) 0.3 % (0-1); EOSINOPHILS % (AUTO) 0 % (0-6); HEMATOCRIT 40.1 % (35.0-45.0); HEMOGLOBIN 13.1 g/dl (12.0-16.0); LYMPHOCYTES % (AUTO) 7.4 % (21-51); MEAN CORPUSCULAR HEMOGLOBIN 28.4 PG (27.0-31.0); MEAN CORPUSCULAR HGB CONC 32.6 g/dL (33.0-36.5); MEAN CORPUSCULAR VOLUME 87.1 FL (78-98); MEAN PLATELET VOLUME 8.9 FL (7.4-10.4); MONOCYTES # (AUTO) 1.1 X10'3 (0-0.9); NEUTROPHILS # (AUTO) 11.6 X10'3 (1.8-7.7); NEUTROPHILS % (AUTO) 84.3 % (42-75); PLATELET COUNT 199 X10'3 (140-440); WHITE BLOOD COUNT 13.7 X10'3 (4.5-11.0)
--- NOTE | 2020-08-22 09:00 | NUR ---
Levophed started for low BP.
[2020-08-22 09:04] LABS: ALANINE AMINOTRANSFERASE 34 U/L (12-78); ALBUMIN 2.1 G/DL (3.4-5.0); ALBUMIN/GLOBULIN RATIO 0.7 (1.1-1.5); ALKALINE PHOSPHATASE 106 IU/L (46-116); ANION GAP 8 (8-16); ASPARTATE AMINO TRANSFERASE 35 U/L (10-37); BILIRUBIN,TOTAL 1.4 MG/DL (0.1-1.0); BLOOD UREA NITROGEN 28 MG/DL (7-18); BUN/CREATININE RATIO 31.5 (6.6-38.0); CALCIUM 7.9 MG/DL (8.5-10.1); CHLORIDE 100 MMOL/L (99-107); CREATININE 0.89 MG/DL (0.40-0.90); GLUCOSE 168 MG/DL (70-104); MAGNESIUM 1.6 MG/DL (1.5-2.4); PHOSPHORUS 3.8 MG/DL (2.3-4.5); POTASSIUM 4.1 MMOL/L (3.5-5.1); SODIUM 135 MMOL/L (135-145); TOTAL CARBON DIOXIDE 27.5 MMOL/L (24-32); TOTAL PROTEIN 5.2 G/DL (6.4-8.2); eGFR 70 ML/MIN
--- NOTE | 2020-08-22 09:10 | NUR ---
RN called Dr. Johnston with PTT > 139. Stated to decrease rate to 1500u.
[2020-08-22 09:37] LABS: ABG BASE EXCESS 2.1 mmol/L (-2.0-2.0); ABG HCO3 26.7 mmol/L (22.0-26.0); ABG OXYGEN SATURATION 97.1 % (94-97); ABG PCO2 (T) 38.2 mmHg (32.0-45.0); ABG PO2 (T) 84.3 mmHg (75.0-100.0); FCOHb 0.6 % (0.0-3.9); FLOW 40 L/min; FMetHb 0.3 % (0.0-1.5); FO2Hb 96.2 % (94-97); PATIENT TEMPERATURE 35.2; PEEP 5 cm H2O; RESPIRATORY RATE 12 b/min; TIDAL VOLUME 450 mL; TOTAL HEMOGLOBIN 13.7 G/dl (12.0-16.0)
[2020-08-22] MEDS ORDERED: normal saline 1000ml 1,000 ML IV ONE (10:00)
--- NOTE | 2020-08-22 10:20 | NUR ---
1L NS bolus infusing per Dr. Fleming. DIC panel drawn and walked down to lab by RN.
[2020-08-22] MEDS: NORepinephrine 8mg/ 250ml NS 250 ML IV SCH ×2 (10:29→16:25)
--- NOTE | 2020-08-22 11:28 | NUR ---
Called Dr. Johnston for PTT > 139. Stated to turn Heparin off for one hour and restart at 1300u.RN notified Dr. Johnston of RLE and CVL bleeding. He stated that is to be expected.
[2020-08-22] MEDS: ipratropium/albuterol 3ml nebule NEB SCH ×4 (11:59→22:09)
--- NOTE | 2020-08-22 13:00 | NUR ---
Pt. turned to place foam dressing to scarum.
[2020-08-22] MEDS: insulin Lispro (HumaLOG) vial - multi-dose SQ SCH ×2 (14:04→21:31)
--- NOTE | 2020-08-22 14:13 | NUR ---
Covered pt. as a Level 2 on the DM Protocol since she has not has her BG adequately checked and was on a level 6 when she was on the floor yesterday. Insulin obtained from pharmacy since patient's insulin did not transfer with her to ICU. Provena wound vac machine had low battery. No cord was with machine. Charging cord obtained from DME and machine is now charging.
[2020-08-22 14:28] LABS: PARTIAL THROMBOPLASTIN TIME 103 SECONDS (22-32)
[2020-08-22] MEDS ORDERED: albumin (Human) 5% 250ml 250 ML IV ONE ×4 (14:40)
[2020-08-22] MEDS ORDERED: iohexol 350MG/ML 100ml bottle IV ONE (14:44)
[2020-08-22] MEDS ORDERED: iohexol 350 MG/ML 50ML vial IV ONE (14:44)
--- NOTE | 2020-08-22 14:46 | NUR ---
Dr. Johnston in to see pt. Aware of bleeding at RIJ and legs. Multiple orders received.
[2020-08-22 15:20] LABS: TROPONIN I 0.04 NG/ML (0.0-0.05)
--- NOTE | 2020-08-22 16:28 | NUR ---
To CTA around 1530. Back in room and setting up Len Trac.
[2020-08-22 17:02] LABS: PARTIAL THROMBOPLASTIN TIME 116 SECONDS (22-32)
[2020-08-22 17:06] LABS: OXYGEN SATURATION (MIXED VEN) 62.3 % (60-80); PO2 MIXED VENOUS (TEMP COR) 36.9 mmHg (35-46)
--- NOTE | 2020-08-22 17:11 | NUR ---
Mom Shayy called for update.
--- NOTE | 2020-08-22 18:28 | NUR ---
Problems reprioritized. Patient report given, questions answered & plan of care reviewed with Berenice EDWARDS.
--- NOTE | 2020-08-22 18:30 | NUR ---
Patient in room CICU 2006. I have received report from Ashely EDWARDS and had the opportunity to ask questions and assume patient care.
[2020-08-22 19:09] LABS: PARTIAL THROMBOPLASTIN TIME > 139 SECONDS (22-32)
--- NOTE | 2020-08-22 19:13 | NUR ---
spoke with Dr. Johnston regarding PTT greater then 139, orders received to hold heparin for 1 hour then restart heparin at 1100 units/hr.
[2020-08-22] MEDS: lisinopril 20mg tablet PO SCH (20:41)
[2020-08-22 22:15] LABS: PARTIAL THROMBOPLASTIN TIME 111 SECONDS (22-32)
[2020-08-22] MEDS: insulin glargine (Lantus) pen - multi-dose SQ SCH (23:22)
[2020-08-22] MEDS: heparin 25,000 UNIT/250ml bag 250 ML IV SCH (23:34)
[2020-08-23] VITALS (27 sets, daily range): BP systolic 92–163; BP diastolic 43–61
--- NOTE | 2020-08-23 00:44 | NUR ---
PTT greater than 139 seconds, per Dr. Johnston's orders the heparin drip is turned off for 60mins and will be decreased 200unit/hr
[2020-08-23] MEDS: NORepinephrine 8mg/ 250ml NS 250 ML IV SCH ×3 (00:47→16:19)
[2020-08-23] MEDS: ceFAZolin 2gm in dextrose, iso 50 ML IV SCH ×3 (00:47→16:45)
[2020-08-23] MEDS: FENTANYL-0.9 % NACL/PF 100 ML IV PRN ×3 (00:48→21:50)
[2020-08-23] MEDS: ipratropium/albuterol 3ml nebule NEB SCH ×6 (02:56→23:56)
[2020-08-23 03:10] LABS: ABG BASE EXCESS 0.7 mmol/L (-2.0-2.0); ABG HCO3 25.1 mmol/L (22.0-26.0); ABG OXYGEN SATURATION 98.7 % (94-97); ABG PCO2 (T) 38.5 mmHg (32.0-45.0); ABG PO2 (T) 167.2 mmHg (75.0-100.0); FCOHb 0.8 % (0.0-3.9); FMetHb 0.4 % (0.0-1.5); FO2Hb 97.5 % (94-97); PATIENT TEMPERATURE 36.7; PEEP 5 cm H2O; RESPIRATORY RATE 12 b/min; TOTAL HEMOGLOBIN 6.7 G/dl (12.0-16.0)
[2020-08-23] MEDS: insulin Lispro (HumaLOG) vial - multi-dose SQ SCH ×4 (03:12→21:00)
[2020-08-23 03:20] LABS: BASOPHILS % (AUTO) 0.3 % (0-1); EOSINOPHILS % (AUTO) 0 % (0-6); LYMPHOCYTES % (AUTO) 15.1 % (21-51); MEAN CORPUSCULAR HEMOGLOBIN 28.4 PG (27.0-31.0); MEAN CORPUSCULAR HGB CONC 32.2 g/dL (33.0-36.5); MEAN CORPUSCULAR VOLUME 88.1 FL (78-98); MEAN PLATELET VOLUME 9.1 FL (7.4-10.4); MONOCYTES # (AUTO) 2.4 X10'3 (0-0.9); NEUTROPHILS # (AUTO) 8.9 X10'3 (1.8-7.7); NEUTROPHILS % (AUTO) 66.6 % (42-75); PLATELET COUNT 178 X10'3 (140-440); RED BLOOD COUNT 2.16 X10'6 (4.20-5.60); RED CELL DISTRIBUTION WIDTH 17.1 % (11.5-14.5); WHITE BLOOD COUNT 13.4 X10'3 (4.5-11.0)
[2020-08-23 03:29] LABS: PARTIAL THROMBOPLASTIN TIME 67 SECONDS (22-32)
[2020-08-23 03:32] LABS: ALANINE AMINOTRANSFERASE 46 U/L (12-78); ALBUMIN 2.1 G/DL (3.4-5.0); ALBUMIN/GLOBULIN RATIO 1.1 (1.1-1.5); ALKALINE PHOSPHATASE 47 IU/L (46-116); ANION GAP 7 (8-16); ASPARTATE AMINO TRANSFERASE 46 U/L (10-37); BILIRUBIN,TOTAL 0.8 MG/DL (0.1-1.0); BLOOD UREA NITROGEN 27 MG/DL (7-18); BUN/CREATININE RATIO 27.3 (6.6-38.0); CALCIUM 7.4 MG/DL (8.5-10.1); CHLORIDE 105 MMOL/L (99-107); CREATININE 0.99 MG/DL (0.40-0.90); GLUCOSE 216 MG/DL (70-104); MAGNESIUM 1.9 MG/DL (1.5-2.4); PHOSPHORUS 4.7 MG/DL (2.3-4.5); POTASSIUM 4.4 MMOL/L (3.5-5.1); SODIUM 139 MMOL/L (135-145); TOTAL CARBON DIOXIDE 27.1 MMOL/L (24-32); eGFR 62 ML/MIN
[2020-08-23 03:35] LABS: HEMOGLOBIN 6.1 g/dl (12.0-16.0)
[2020-08-23 04:19] LABS: ANISOCYTOSIS 1+; PLATELET ESTIMATE NORMAL; TOTAL CELLS COUNTED 100
[2020-08-23 04:20] LABS: HYPOCHROMASIA 1+; POLYCHROMASIA FEW
[2020-08-23] MEDS ORDERED: heparin 10,000 units/1 ML INJ IV ONE (04:40)
--- NOTE | 2020-08-23 04:40 | NUR ---
Spoke with Dr. Johnston regarding critical h&h and updated him on the ptt of 67sec received orders to give a 2000unit heparin bolus and increase the heparin drip rate to 1000unit/hr. Will follow orders and redraw ptt in 2 hours
--- NOTE | 2020-08-23 06:26 | NUR ---
Problems reprioritized. Patient report given, questions answered & plan of care reviewed with Ashely EDWARDS.
--- NOTE | 2020-08-23 06:35 | NUR ---
Patient in room [facility] 2006. I have received report from Berenice EDWARDS and had the opportunity to ask questions and assume patient care. Addendum: 08/23/20 at 0635 by Ashely Crowder RN Amended: Links added.
[2020-08-23] MEDS ORDERED: heparin 10,000 units/1 ML INJ ONE (06:55)
--- NOTE | 2020-08-23 07:04 | NUR ---
technical illustrations map inker paged for vein mapping.
[2020-08-23 07:10] LABS: HEMATOCRIT 23.1 % (35.0-45.0); HEMOGLOBIN 7.7 g/dl (12.0-16.0); MEAN CORPUSCULAR HEMOGLOBIN 28.8 PG (27.0-31.0); MEAN CORPUSCULAR HGB CONC 33.3 g/dL (33.0-36.5); MEAN CORPUSCULAR VOLUME 86.5 FL (78-98); MEAN PLATELET VOLUME 8.8 FL (7.4-10.4); PLATELET COUNT 153 X10'3 (140-440); RED BLOOD COUNT 2.67 X10'6 (4.20-5.60); RED CELL DISTRIBUTION WIDTH 15.7 % (11.5-14.5); WHITE BLOOD COUNT 14.5 X10'3 (4.5-11.0)
--- NOTE | 2020-08-23 07:12 | NUR ---
hyperbaric technologist called back and stated she is unable to perform the vein mapping on legs that have fasciotimies. RN asked that she call Dr. Johnston and discuss it with him since he ordered it.
[2020-08-23] MEDS: gabapentin 300mg capsule PO SCH ×3 (07:20→20:22)
--- NOTE | 2020-08-23 07:58 | NUR ---
Dr. Sharpe in to review pt's chart.
[2020-08-23] MEDS: K and/or MAG REPLACEMENT MC SCH ×2 (08:00→20:00)
[2020-08-23] MEDS: carvedilol 6.25mg tablet PO SCH ×2 (08:00→20:00)
[2020-08-23] MEDS: spironolactone 25 MG tablet PO SCH (08:00)
[2020-08-23] MEDS: furosemide 10 MG/1 ML 10ml inj IV SCH ×2 (08:00→20:00)
--- NOTE | 2020-08-23 08:32 | NUR ---
Dr. Fleming checking in on pt. Updated on pt. status. Aware of oozing at RIJ, OGT and bilat. legs. Aware that Dr. Johnston plans on taking back to OR at some point for cool, pulseless right foot. Aware that pt. is not receiving IVF.
--- NOTE | 2020-08-23 09:07 | NUR ---
0652 PTT was cancelled by lab. Re-drawn at 0844.
--- NOTE | 2020-08-23 10:57 | NUR ---
Latest PTT results =>139. Results called to Dr. Johnston who stated to decreased rate of Heparin to 900u/9ml. Rate adjusted and co-signed by another RN.
[2020-08-23] MEDS ORDERED: rocuronium 10mg/ml inj IV ONE ×2 (11:06→13:07)
--- NOTE | 2020-08-23 11:26 | NUR ---
Dr. Johnston here. Spoke with pt's mom Shayy and obtained consent for surgery with RN. Ordered to transfuse 1 unit PRBC. Blood consent signed by Dr. Johnston. Notified of pt's current Levophed dose and last noc's H/H and 1 unit tranfused.
[2020-08-23] MEDS: midazolam 100mg in NS 100ml 100 ML IV PRN (11:45)
[2020-08-23] MEDS ORDERED: sevoflurane 250ml liquid IH ONE (12:11)
[2020-08-23] MEDS ORDERED: NORepinephrine 8 MG in NS 250 ML BAG (32 mcg/ml) IV ONE (12:11)
[2020-08-23] MEDS ORDERED: DOBUTamine/D5W 500mg/250ml premix IV ONE (12:11)
--- NOTE | 2020-08-23 12:25 | NUR ---
Patient to OR.
[2020-08-23] MEDS: heparin 25,000 UNIT/250ml bag 250 ML IV SCH (12:30)
--- NOTE | 2020-08-23 12:35 | NUR ---
Ramo Consult: Ramo 10 w/ bilateral calf 4 compartment fasciotomy wounds per MD note. Pt intubated s/p vascular surgery w/ no RLE perfusion pending possible return to OR today per MD. Pt previously PO 100% meals w/ double proteins meeting needs. Will monitor for nutrition support needs if prolonged intubation and diet advancement as medically indicated following extubation. Regardless, pt would benefit from paulino ONS for wound healing needs once nutrition resumes. Recommendations: 1) IF prolonged intubation; recommend EN using Vital High Protein at 65ml/hr goal. 2) IF TF; additional water flush per prop setter 3) Paulino ONS either w/ EN or PO diet once nutrition to resume given wound healing needs 4) routine bowel care 5) weights per rx 6) upon extubation, advance to CHO controlled diet w/ Double eggs q breakfast, double meat BIDLD as medically indicated Addendum: 08/23/20 at [address] Amended: Links added.
[2020-08-23] MEDS ORDERED: heparin 1,000unit/ml 10ml vial 10 ML ONE (13:07)
[2020-08-23] MEDS ORDERED: ceFAZolin 1000mg inj ONE (13:10)
[2020-08-23] MEDS ORDERED: albumin (Human) 5% 250ml 500 ML IV ONE (14:15)
[2020-08-23] MEDS ORDERED: DexTRAN 40/D5W 500ml soln 500 ML IV ONE (14:15)
[2020-08-23] MEDS ORDERED: iohexol 300 MG/1 ML 50ml polymer ONE ×2 (14:33→14:38)
--- NOTE | 2020-08-23 14:42 | NUR ---
Blood transfusion started at 1139. 1st 15 minute VS documented but pt. went to OR at 1225 thus RN was unable to document and monitor blood transfusion vital signs.
[2020-08-23 15:02] LABS: PARTIAL THROMBOPLASTIN TIME 135 SECONDS (22-32)
--- NOTE | 2020-08-23 16:00 | NUR ---
Pt. back from OR. Dr. Johnston at bedside. Doppler pulses to bilat. LEs. Pt. cool. Asher oneil obtained and placed on pt. Dextran infusing now per Dr. Johnston.
[2020-08-23] MEDS: DOBUTamine 2000 MCG/250ML BAG IV SCH (16:19)
[2020-08-23 16:41] LABS: BASOPHILS # (AUTO) 0.1 X10'3 (0-0.2); BASOPHILS % (AUTO) 0.6 % (0-1); EOSINOPHILS # (AUTO) 0.1 X10'3 (0-0.9); EOSINOPHILS % (AUTO) 0.6 % (0-6); HEMOGLOBIN 7.6 g/dl (12.0-16.0); LYMPHOCYTES % (AUTO) 16.9 % (21-51); MEAN CORPUSCULAR HEMOGLOBIN 29.1 PG (27.0-31.0); MEAN CORPUSCULAR HGB CONC 33.2 g/dL (33.0-36.5); MEAN CORPUSCULAR VOLUME 87.5 FL (78-98); MONOCYTES # (AUTO) 1.5 X10'3 (0-0.9); MONOCYTES % (AUTO) 13.2 % (2-12); NEUTROPHILS # (AUTO) 8.1 X10'3 (1.8-7.7); NEUTROPHILS % (AUTO) 68.7 % (42-75); RED BLOOD COUNT 2.63 X10'6 (4.20-5.60); RED CELL DISTRIBUTION WIDTH 16.1 % (11.5-14.5); WHITE BLOOD COUNT 11.7 X10'3 (4.5-11.0)
[2020-08-23 16:45] LABS: PLATELET COUNT 106 X10'3 (140-440)
[2020-08-23 16:56] LABS: ALANINE AMINOTRANSFERASE 73 U/L (12-78); ALBUMIN 1.7 G/DL (3.4-5.0); ALBUMIN/GLOBULIN RATIO 1.1 (1.1-1.5); ALKALINE PHOSPHATASE 35 IU/L (46-116); ANION GAP 5 (8-16); ASPARTATE AMINO TRANSFERASE 91 U/L (10-37); BILIRUBIN,TOTAL 1.4 MG/DL (0.1-1.0); BLOOD UREA NITROGEN 22 MG/DL (7-18); BUN/CREATININE RATIO 25.6 (6.6-38.0); CALCIUM 6.8 MG/DL (8.5-10.1); CHLORIDE 107 MMOL/L (99-107); CREATININE 0.86 MG/DL (0.40-0.90); GLUCOSE 193 MG/DL (70-104); SODIUM 140 MMOL/L (135-145); TOTAL CARBON DIOXIDE 28.1 MMOL/L (24-32); TOTAL PROTEIN 3.3 G/DL (6.4-8.2); eGFR 73 ML/MIN
--- NOTE | 2020-08-23 18:30 | NUR ---
Patient in room CICU 2006. I have received report from Ashely EDWARDS and had the opportunity to ask questions and assume patient care.
[2020-08-23] MEDS: DexTRAN 40/D5W 500ml soln 500 ML IV SCH (20:24)
[2020-08-23] MEDS: lisinopril 20mg tablet PO SCH (20:30)
[2020-08-23] MEDS: insulin glargine (Lantus) pen - multi-dose SQ SCH (21:01)
[2020-08-23 23:14] LABS: ISTAT ANION GAP 8 (8-12); ISTAT BUN 21 mg/dL (6-19); ISTAT CL 101 mmol/L (99-107); ISTAT CREATININE 0.6 mg/dL (0.6-1.1); ISTAT GLUCOSE 172 mg/dL (70-104); ISTAT HGB 8.2 g/dl (12.0-16.0); ISTAT Hct 24 %PCV (35-48); ISTAT IONIZED CALCIUM 1.09 mmol/L (1.03-1.32); ISTAT K 4.2 mmol/L (3.5-5.1); ISTAT NA 137 mmol/L (135-145); ISTAT TOTAL CO2 28 mmol/L (24-32); ISTAT eGFR > 90 ML/MIN
[2020-08-24] VITALS (30 sets, daily range): BP systolic 84–148; BP diastolic 46–65
[2020-08-24] MEDS: ceFAZolin 2gm in dextrose, iso 50 ML IV SCH ×3 (00:14→15:49)
[2020-08-24] MEDS: insulin Lispro (HumaLOG) vial - multi-dose SQ SCH (02:40)
[2020-08-24 03:01] LABS: ALANINE AMINOTRANSFERASE 51 U/L (12-78); ALKALINE PHOSPHATASE 26 IU/L (46-116); ANION GAP 2 (8-16); ASPARTATE AMINO TRANSFERASE 94 U/L (10-37); BILIRUBIN,TOTAL 0.7 MG/DL (0.1-1.0); BLOOD UREA NITROGEN 17 MG/DL (7-18); BUN/CREATININE RATIO 22.7 (6.6-38.0); CALCIUM 6.6 MG/DL (8.5-10.1); CHLORIDE 108 MMOL/L (99-107); CREATININE 0.75 MG/DL (0.40-0.90); GLUCOSE 168 MG/DL (70-104); MAGNESIUM 1.7 MG/DL (1.5-2.4); PHOSPHORUS 2.2 MG/DL (2.3-4.5); POTASSIUM 3.7 MMOL/L (3.5-5.1); SODIUM 138 MMOL/L (135-145); TOTAL CARBON DIOXIDE 27.8 MMOL/L (24-32); eGFR 86 ML/MIN
[2020-08-24 03:14] LABS: ALBUMIN/GLOBULIN RATIO 0.5 (1.1-1.5); TOTAL PROTEIN 2.9 G/DL (6.4-8.2)
[2020-08-24 03:15] LABS: BASOPHILS % (AUTO) 0.4 % (0-1); EOSINOPHILS # (AUTO) 0.1 X10'3 (0-0.9); EOSINOPHILS % (AUTO) 1.7 % (0-6); LYMPHOCYTES # (AUTO) 0.7 X10'3 (1.1-4.8); LYMPHOCYTES % (AUTO) 8.5 % (21-51); MEAN CORPUSCULAR HEMOGLOBIN 29.9 PG (27.0-31.0); MEAN CORPUSCULAR HGB CONC 34.2 g/dL (33.0-36.5); MEAN CORPUSCULAR VOLUME 87.4 FL (78-98); MEAN PLATELET VOLUME 9.3 FL (7.4-10.4); MONOCYTES # (AUTO) 0.8 X10'3 (0-0.9); NEUTROPHILS # (AUTO) 6.7 X10'3 (1.8-7.7); NEUTROPHILS % (AUTO) 79.4 % (42-75); PLATELET COUNT 78 X10'3 (140-440); RED BLOOD COUNT 1.78 X10'6 (4.20-5.60); RED CELL DISTRIBUTION WIDTH 16.3 % (11.5-14.5); WHITE BLOOD COUNT 8.5 X10'3 (4.5-11.0)
[2020-08-24 03:19] LABS: HEMATOCRIT 15.5 % (35.0-45.0); HEMOGLOBIN 5.3 g/dl (12.0-16.0)
[2020-08-24] MEDS: ipratropium/albuterol 3ml nebule NEB SCH ×6 (03:23→23:40)
[2020-08-24] MEDS: DexTRAN 40/D5W 500ml soln 500 ML IV SCH ×4 (04:00→15:50)
[2020-08-24] MEDS: heparin 25,000 UNIT/250ml bag 250 ML IV SCH (04:09)
[2020-08-24 04:12] LABS: MEAN CORPUSCULAR HEMOGLOBIN 29.8 PG (27.0-31.0); MEAN CORPUSCULAR HGB CONC 34.1 g/dL (33.0-36.5); MEAN CORPUSCULAR VOLUME 87.4 FL (78-98); MEAN PLATELET VOLUME 8.8 FL (7.4-10.4); PLATELET COUNT 81 X10'3 (140-440); RED BLOOD COUNT 1.81 X10'6 (4.20-5.60); RED CELL DISTRIBUTION WIDTH 15.9 % (11.5-14.5); WHITE BLOOD COUNT 9.4 X10'3 (4.5-11.0)
[2020-08-24 04:13] LABS: HEMOGLOBIN 5.4 g/dl (12.0-16.0)
[2020-08-24 04:14] LABS: HEMATOCRIT 15.9 % (35.0-45.0)
[2020-08-24] MEDS: FENTANYL-0.9 % NACL/PF 100 ML IV PRN ×3 (04:57→20:36)
[2020-08-24 05:44] LABS: ABG BASE EXCESS 1.6 mmol/L (-2.0-2.0); ABG OXYGEN SATURATION 94.9 % (94-97); ABG PCO2 (T) 37.7 mmHg (32.0-45.0); ABG PO2 (T) 71.4 mmHg (75.0-100.0); FCOHb 0.4 % (0.0-3.9); FMetHb 0.7 % (0.0-1.5); FO2Hb 93.9 % (94-97); PATIENT TEMPERATURE 35.7; PEEP 5 cm H2O; RESPIRATORY RATE 16 b/min; TIDAL VOLUME 450 mL; TOTAL HEMOGLOBIN 6.3 G/dl (12.0-16.0)
--- NOTE | 2020-08-24 06:17 | NUR ---
Problems reprioritized. Patient report given, questions answered & plan of care reviewed with Ashely EDWARDS.
--- NOTE | 2020-08-24 06:25 | NUR ---
Patient in room [facility] 2006. I have received report from Berenice EDWARDS and had the opportunity to ask questions and assume patient care. Addendum: 08/24/20 at 0625 by Ashely Crowder RN Amended: Links added.
[2020-08-24] MEDS: K and/or MAG REPLACEMENT MC SCH ×2 (07:40→20:00)
[2020-08-24] MEDS: spironolactone 25 MG tablet PO SCH (07:40)
[2020-08-24] MEDS: carvedilol 6.25mg tablet PO SCH ×2 (07:41→20:14)
[2020-08-24] MEDS: furosemide 10 MG/1 ML 10ml inj IV SCH ×2 (07:41→20:16)
[2020-08-24] MEDS: gabapentin 300mg capsule PO SCH ×3 (07:47→20:15)
[2020-08-24] MEDS: DOBUTamine 2000 MCG/250ML BAG IV SCH (08:56)
[2020-08-24] MEDS: midazolam 100mg in NS 100ml 100 ML IV PRN (08:56)
--- NOTE | 2020-08-24 09:21 | NUR ---
GRACE called Dr. Johnston with latest PTT of 66. Ordered to increase Hep. gtt dose to 400u from 300. Dr. Fleming rounded on pt. Updated on pt. condition and Dr. Johnston's plan. Levophed turned off at 0900. Addendum: 08/24/20 at 0931 by Ashely Crowder RN Dr. Fleming aware that GRACE held Lasix, Coreg and Aldactone.
--- NOTE | 2020-08-24 10:59 | NUR ---
WOC RN here to assess Provenas.
[2020-08-24] MEDS: pantoprazole 40 MG vial IV SCH (11:30)
--- NOTE | 2020-08-24 11:49 | NUR ---
RN called Dr. Johnston with latest PTT of 66. Ordered to increase Heparin gtt to 500u/5ml from 400u/4ml. Notified him of low H/H on am labs and blood transfusion of 2 units PRBCs. Ordered Hemogram for 1600.
--- NOTE | 2020-08-24 13:37 | NUR ---
Dr. Johnston here to see pt. Dressing change orders received.
--- NOTE | 2020-08-24 14:48 | NUR ---
Dressings to bilat. LEs changed per order.
[2020-08-24 16:45] LABS: BASOPHILS # (AUTO) 0.1 X10'3 (0-0.2); BASOPHILS % (AUTO) 0.5 % (0-1); EOSINOPHILS # (AUTO) 0.1 X10'3 (0-0.9); EOSINOPHILS % (AUTO) 1.3 % (0-6); LYMPHOCYTES # (AUTO) 0.9 X10'3 (1.1-4.8); LYMPHOCYTES % (AUTO) 8.6 % (21-51); MEAN CORPUSCULAR HGB CONC 34.6 g/dL (33.0-36.5); MEAN PLATELET VOLUME 8.8 FL (7.4-10.4); MONOCYTES # (AUTO) 0.8 X10'3 (0-0.9); MONOCYTES % (AUTO) 7.7 % (2-12); NEUTROPHILS # (AUTO) 8.5 X10'3 (1.8-7.7); NEUTROPHILS % (AUTO) 81.9 % (42-75); WHITE BLOOD COUNT 10.4 X10'3 (4.5-11.0)
[2020-08-24 16:46] LABS: RED BLOOD COUNT 2.37 X10'6 (4.20-5.60)
[2020-08-24 16:47] LABS: HEMOGLOBIN 7.1 g/dl (12.0-16.0); MEAN CORPUSCULAR HEMOGLOBIN 29.8 PG (27.0-31.0); MEAN CORPUSCULAR VOLUME 86.4 FL (78-98); PLATELET COUNT 73 X10'3 (140-440); RED CELL DISTRIBUTION WIDTH 15.3 % (11.5-14.5)
[2020-08-24 16:48] LABS: HEMATOCRIT 20.4 % (35.0-45.0)
--- NOTE | 2020-08-24 17:34 | NUR ---
Mom Shayy called for an update.
--- NOTE | 2020-08-24 17:46 | NUR ---
Called Dr. Johnston with PTT result of 63. Left voicemail.
--- NOTE | 2020-08-24 18:03 | NUR ---
Awaiting call back from Dr. Johnston. Called [facility] OR and [facility] OR and was told he is not performing surgeries in either facility.
--- NOTE | 2020-08-24 18:16 | NUR ---
Problems reprioritized. Patient report given, questions answered & plan of care reviewed with Estuardo EDWARDS.
[2020-08-24] MEDS: heparin 10,000 units/1 ML INJ IV PRN (19:13)
[2020-08-24] MEDS: lactobacillus rhamnosus 10,000 MMU CELLS/CAPSULE PO SCH (20:15)
[2020-08-24] MEDS: insulin glargine (Lantus) pen - multi-dose SQ SCH (20:22)
[2020-08-24] MEDS: lisinopril 20mg tablet PO SCH (21:00)
[2020-08-24 21:07] LABS: BASOPHILS % (AUTO) 0.2 % (0-1); EOSINOPHILS # (AUTO) 0.1 X10'3 (0-0.9); EOSINOPHILS % (AUTO) 1.2 % (0-6); LYMPHOCYTES # (AUTO) 0.9 X10'3 (1.1-4.8); LYMPHOCYTES % (AUTO) 8.8 % (21-51); MEAN CORPUSCULAR HEMOGLOBIN 29.4 PG (27.0-31.0); MEAN CORPUSCULAR VOLUME 86.4 FL (78-98); MEAN PLATELET VOLUME 8.6 FL (7.4-10.4); MONOCYTES # (AUTO) 0.9 X10'3 (0-0.9); MONOCYTES % (AUTO) 8.5 % (2-12); NEUTROPHILS # (AUTO) 8.1 X10'3 (1.8-7.7); NEUTROPHILS % (AUTO) 81.3 % (42-75); PLATELET COUNT 76 X10'3 (140-440); RED BLOOD COUNT 2.32 X10'6 (4.20-5.60); RED CELL DISTRIBUTION WIDTH 15.6 % (11.5-14.5)
[2020-08-24 21:14] LABS: HEMOGLOBIN 6.8 g/dl (12.0-16.0)
[2020-08-24 21:27] LABS: PARTIAL THROMBOPLASTIN TIME 101 SECONDS (22-32)
--- NOTE | 2020-08-24 22:02 | NUR ---
notified diego of ptt & h & h no new ordres
[2020-08-24 23:16] LABS: PARTIAL THROMBOPLASTIN TIME 93 SECONDS (22-32)
[2020-08-25] VITALS (31 sets, daily range): BP systolic 104–141; BP diastolic 60–78
[2020-08-25] MEDS: ceFAZolin 2gm in dextrose, iso 50 ML IV SCH ×3 (00:10→16:00)
[2020-08-25] MEDS: DexTRAN 40/D5W 500ml soln 500 ML IV SCH ×3 (00:10→23:55)
[2020-08-25 01:13] LABS: PARTIAL THROMBOPLASTIN TIME 122 SECONDS (22-32)
[2020-08-25] MEDS: NORepinephrine 8mg/ 250ml NS 250 ML IV SCH (01:16)
[2020-08-25] MEDS: ipratropium/albuterol 3ml nebule NEB SCH ×6 (02:59→22:56)
[2020-08-25 03:15] LABS: BASOPHILS % (AUTO) 0.3 % (0-1); EOSINOPHILS # (AUTO) 0.1 X10'3 (0-0.9); EOSINOPHILS % (AUTO) 1.6 % (0-6); LYMPHOCYTES # (AUTO) 0.6 X10'3 (1.1-4.8); LYMPHOCYTES % (AUTO) 7.4 % (21-51); MEAN CORPUSCULAR HEMOGLOBIN 29.7 PG (27.0-31.0); MEAN CORPUSCULAR HGB CONC 34.1 g/dL (33.0-36.5); MEAN CORPUSCULAR VOLUME 87.2 FL (78-98); MEAN PLATELET VOLUME 8.5 FL (7.4-10.4); MONOCYTES # (AUTO) 0.8 X10'3 (0-0.9); MONOCYTES % (AUTO) 8.7 % (2-12); NEUTROPHILS # (AUTO) 7.1 X10'3 (1.8-7.7); PLATELET COUNT 77 X10'3 (140-440); RED BLOOD COUNT 2.17 X10'6 (4.20-5.60); RED CELL DISTRIBUTION WIDTH 15.5 % (11.5-14.5); WHITE BLOOD COUNT 8.7 X10'3 (4.5-11.0)
[2020-08-25] MEDS: FENTANYL-0.9 % NACL/PF 100 ML IV PRN ×2 (03:16→10:41)
[2020-08-25] MEDS: midazolam 100mg in NS 100ml 100 ML IV PRN (03:17)
[2020-08-25] MEDS: DOBUTamine 2000 MCG/250ML BAG IV SCH (03:18)
[2020-08-25 03:35] LABS: ALANINE AMINOTRANSFERASE 34 U/L (12-78); ALBUMIN 0.7 G/DL (3.4-5.0); ALKALINE PHOSPHATASE 37 IU/L (46-116); ANION GAP 2 (8-16); ASPARTATE AMINO TRANSFERASE 97 U/L (10-37); BILIRUBIN,TOTAL 0.7 MG/DL (0.1-1.0); BLOOD UREA NITROGEN 9 MG/DL (7-18); BUN/CREATININE RATIO 15.3 (6.6-38.0); CALCIUM 6.5 MG/DL (8.5-10.1); CHLORIDE 109 MMOL/L (99-107); CREATININE 0.59 MG/DL (0.40-0.90); GLUCOSE 138 MG/DL (70-104); MAGNESIUM 1.7 MG/DL (1.5-2.4); PHOSPHORUS 2.3 MG/DL (2.3-4.5); POTASSIUM 3.5 MMOL/L (3.5-5.1); SODIUM 140 MMOL/L (135-145); TOTAL CARBON DIOXIDE 29.1 MMOL/L (24-32); eGFR > 90 ML/MIN
[2020-08-25 03:41] LABS: HEMATOCRIT 18.9 % (35.0-45.0); HEMOGLOBIN 6.4 g/dl (12.0-16.0)
[2020-08-25 04:01] LABS: PARTIAL THROMBOPLASTIN TIME 107 SECONDS (22-32)
[2020-08-25 05:08] LABS: ABG BASE EXCESS 3.2 mmol/L (-2.0-2.0); ABG HCO3 27.4 mmol/L (22.0-26.0); ABG OXYGEN SATURATION 94.2 % (94-97); ABG PCO2 (T) 37.7 mmHg (32.0-45.0); ABG PO2 (T) 64.9 mmHg (75.0-100.0); ALLEN'S TEST Modified; FCOHb 0.3 % (0.0-3.9); PATIENT TEMPERATURE 35.7; PEEP 5 cm H2O; RESPIRATORY RATE 16 b/min; TIDAL VOLUME 450 mL
[2020-08-25 05:14] LABS: PARTIAL THROMBOPLASTIN TIME 87 SECONDS (22-32)
[2020-08-25 07:42] LABS: PARTIAL THROMBOPLASTIN TIME 89 SECONDS (22-32)
[2020-08-25] MEDS: K and/or MAG REPLACEMENT MC SCH ×2 (08:00→20:00)
[2020-08-25 08:01] LABS: BASOPHILS % (AUTO) 0.3 % (0-1); EOSINOPHILS # (AUTO) 0.2 X10'3 (0-0.9); LYMPHOCYTES # (AUTO) 0.6 X10'3 (1.1-4.8); LYMPHOCYTES % (AUTO) 7.8 % (21-51); MEAN CORPUSCULAR HEMOGLOBIN 29.8 PG (27.0-31.0); MEAN CORPUSCULAR HGB CONC 34.1 g/dL (33.0-36.5); MEAN CORPUSCULAR VOLUME 87.3 FL (78-98); MEAN PLATELET VOLUME 8.6 FL (7.4-10.4); MONOCYTES # (AUTO) 0.6 X10'3 (0-0.9); MONOCYTES % (AUTO) 8.4 % (2-12); NEUTROPHILS # (AUTO) 6.2 X10'3 (1.8-7.7); NEUTROPHILS % (AUTO) 81.5 % (42-75); PLATELET COUNT 76 X10'3 (140-440); RED BLOOD COUNT 2.16 X10'6 (4.20-5.60); WHITE BLOOD COUNT 7.6 X10'3 (4.5-11.0)
[2020-08-25] MEDS: gabapentin 300mg capsule PO SCH ×3 (08:09→19:52)
[2020-08-25] MEDS: spironolactone 25 MG tablet PO SCH (08:09)
[2020-08-25] MEDS: pantoprazole 40 MG vial IV SCH (08:09)
[2020-08-25] MEDS: furosemide 10 MG/1 ML 10ml inj IV SCH ×2 (08:10→19:52)
[2020-08-25] MEDS: carvedilol 6.25mg tablet PO SCH ×2 (08:10→19:52)
[2020-08-25 08:16] LABS: HEMATOCRIT 18.9 % (35.0-45.0); HEMOGLOBIN 6.4 g/dl (12.0-16.0)
[2020-08-25 09:40] LABS: PARTIAL THROMBOPLASTIN TIME 107 SECONDS (22-32)
[2020-08-25] MEDS: potassium Cl 40MEQ/1/2NS 520ml 520 ML IV PRN (10:31)
[2020-08-25 10:57] LABS: BASOPHILS % (AUTO) 0.5 % (0-1); EOSINOPHILS # (AUTO) 0.1 X10'3 (0-0.9); EOSINOPHILS % (AUTO) 1.9 % (0-6); LYMPHOCYTES # (AUTO) 0.6 X10'3 (1.1-4.8); LYMPHOCYTES % (AUTO) 7.2 % (21-51); MEAN CORPUSCULAR HEMOGLOBIN 29.9 PG (27.0-31.0); MEAN CORPUSCULAR HGB CONC 34.1 g/dL (33.0-36.5); MEAN CORPUSCULAR VOLUME 87.8 FL (78-98); MEAN PLATELET VOLUME 8.4 FL (7.4-10.4); MONOCYTES # (AUTO) 0.6 X10'3 (0-0.9); MONOCYTES % (AUTO) 7.6 % (2-12); NEUTROPHILS # (AUTO) 6.3 X10'3 (1.8-7.7); NEUTROPHILS % (AUTO) 82.8 % (42-75); PLATELET COUNT 83 X10'3 (140-440); RED BLOOD COUNT 2.21 X10'6 (4.20-5.60); RED CELL DISTRIBUTION WIDTH 15.6 % (11.5-14.5); WHITE BLOOD COUNT 7.7 X10'3 (4.5-11.0)
[2020-08-25 11:02] LABS: HEMOGLOBIN 6.6 g/dl (12.0-16.0)
[2020-08-25 11:03] LABS: HEMATOCRIT 19.4 % (35.0-45.0)
[2020-08-25 11:18] LABS: PARTIAL THROMBOPLASTIN TIME 76 SECONDS (22-32)
--- NOTE | 2020-08-25 11:27 | NUR ---
paged Dr. Ospina at this time to report ptt below ordered range
[2020-08-25 13:27] LABS: PARTIAL THROMBOPLASTIN TIME 66 SECONDS (22-32)
--- NOTE | 2020-08-25 13:47 | NUR ---
Dr. Cummins Called, informed of 66 PTT, stated to titrate heparin to 700 units.
[2020-08-25] MEDS: lactobacillus rhamnosus 10,000 MMU CELLS/CAPSULE PO SCH ×2 (14:03→19:53)
[2020-08-25 15:44] LABS: PARTIAL THROMBOPLASTIN TIME 76 SECONDS (22-32)
--- NOTE | 2020-08-25 18:14 | NUR ---
rounded with Dr. Mcguire in AM hours approximately 0900, sbar on patient given, EMAR reviewed, POC updated. Rounded with Dr. Cummins, POC updated, EMAR reviewed, Sbar given. Shown good pulses via doppler on patient. Shown dressing changes had been done per orders at 1500, timed and dated.
--- NOTE | 2020-08-25 18:37 | NUR ---
SBAR report given to night nurse, emar reviewed, questions answered.
--- NOTE | 2020-08-25 18:47 | NUR ---
PTT at 1230 66. As per Vickie, go up to 700 units/hr. 1430 PTT 76, as per Dr. Cummins, keep at 700 unit/hr. 1630 PTT 62, as per Dr. Cummins bolus 1000 units and go up to 900 units/hr
[2020-08-25 19:01] LABS: BASOPHILS % (AUTO) 0.5 % (0-1); EOSINOPHILS # (AUTO) 0.2 X10'3 (0-0.9); HEMOGLOBIN 9.1 g/dl (12.0-16.0); LYMPHOCYTES # (AUTO) 0.7 X10'3 (1.1-4.8); LYMPHOCYTES % (AUTO) 7.1 % (21-51); MEAN CORPUSCULAR HEMOGLOBIN 29.3 PG (27.0-31.0); MEAN CORPUSCULAR HGB CONC 33.8 g/dL (33.0-36.5); MEAN CORPUSCULAR VOLUME 86.8 FL (78-98); MEAN PLATELET VOLUME 8.5 FL (7.4-10.4); MONOCYTES # (AUTO) 0.8 X10'3 (0-0.9); MONOCYTES % (AUTO) 8.5 % (2-12); NEUTROPHILS # (AUTO) 7.6 X10'3 (1.8-7.7); NEUTROPHILS % (AUTO) 81.9 % (42-75); PLATELET COUNT 92 X10'3 (140-440); RED BLOOD COUNT 3.11 X10'6 (4.20-5.60); RED CELL DISTRIBUTION WIDTH 15.9 % (11.5-14.5); WHITE BLOOD COUNT 9.3 X10'3 (4.5-11.0)
[2020-08-25 19:27] LABS: PARTIAL THROMBOPLASTIN TIME 86 SECONDS (22-32)
[2020-08-25] MEDS: lisinopril 20mg tablet PO SCH (19:52)
[2020-08-25] MEDS: insulin glargine (Lantus) pen - multi-dose SQ SCH (21:00)
[2020-08-25 23:52] LABS: PARTIAL THROMBOPLASTIN TIME 104 SECONDS (22-32)
[2020-08-26] VITALS (21 sets, daily range): BP systolic 111–142; BP diastolic 66–90
[2020-08-26] MEDS: FENTANYL-0.9 % NACL/PF 100 ML IV PRN ×3 (01:29→17:58)
[2020-08-26 02:58] LABS: BASOPHILS % (AUTO) 0.5 % (0-1); EOSINOPHILS # (AUTO) 0.2 X10'3 (0-0.9); EOSINOPHILS % (AUTO) 2.6 % (0-6); HEMATOCRIT 24.8 % (35.0-45.0); HEMOGLOBIN 8.4 g/dl (12.0-16.0); LYMPHOCYTES # (AUTO) 0.6 X10'3 (1.1-4.8); LYMPHOCYTES % (AUTO) 6.9 % (21-51); MEAN CORPUSCULAR HEMOGLOBIN 29.4 PG (27.0-31.0); MEAN CORPUSCULAR VOLUME 86.6 FL (78-98); MEAN PLATELET VOLUME 8.1 FL (7.4-10.4); MONOCYTES # (AUTO) 0.8 X10'3 (0-0.9); MONOCYTES % (AUTO) 9.5 % (2-12); NEUTROPHILS # (AUTO) 6.8 X10'3 (1.8-7.7); NEUTROPHILS % (AUTO) 80.5 % (42-75); PLATELET COUNT 98 X10'3 (140-440); RED BLOOD COUNT 2.86 X10'6 (4.20-5.60); WHITE BLOOD COUNT 8.4 X10'3 (4.5-11.0)
[2020-08-26 03:16] LABS: ALANINE AMINOTRANSFERASE 20 U/L (12-78); ALBUMIN 0.7 G/DL (3.4-5.0); ALKALINE PHOSPHATASE 41 IU/L (46-116); ANION GAP 2 (8-16); ASPARTATE AMINO TRANSFERASE 92 U/L (10-37); BILIRUBIN,TOTAL 0.9 MG/DL (0.1-1.0); BLOOD UREA NITROGEN 8 MG/DL (7-18); BUN/CREATININE RATIO 11.9 (6.6-38.0); CALCIUM 6.5 MG/DL (8.5-10.1); CHLORIDE 107 MMOL/L (99-107); CREATININE 0.67 MG/DL (0.40-0.90); GLUCOSE 115 MG/DL (70-104); MAGNESIUM 1.5 MG/DL (1.5-2.4); PHOSPHORUS 3.2 MG/DL (2.3-4.5); POTASSIUM 3.6 MMOL/L (3.5-5.1); SODIUM 137 MMOL/L (135-145); TOTAL CARBON DIOXIDE 28.4 MMOL/L (24-32); eGFR > 90 ML/MIN
[2020-08-26 03:18] LABS: ALBUMIN/GLOBULIN RATIO 0.2 (1.1-1.5)
[2020-08-26 03:34] LABS: PARTIAL THROMBOPLASTIN TIME 107 SECONDS (22-32)
[2020-08-26] MEDS: ipratropium/albuterol 3ml nebule NEB SCH ×6 (03:38→23:16)
[2020-08-26 04:38] LABS: ABG BASE EXCESS 2.3 mmol/L (-2.0-2.0); ABG HCO3 25.8 mmol/L (22.0-26.0); ABG OXYGEN SATURATION 93.8 % (94-97); ABG PCO2 (T) 35.3 mmHg (32.0-45.0); ABG PO2 (T) 66.2 mmHg (75.0-100.0); ALLEN'S TEST POSITIVE; FMetHb 0.1 % (0.0-1.5); FO2Hb 92.8 % (94-97); PATIENT TEMPERATURE 36.9; PEEP 5 cm H2O; RESPIRATORY RATE 16 b/min; TIDAL VOLUME 450 mL; TOTAL HEMOGLOBIN 9.2 G/dl (12.0-16.0)
[2020-08-26] MEDS: DexTRAN 40/D5W 500ml soln 500 ML IV SCH ×3 (06:58→21:12)
[2020-08-26] MEDS: gabapentin 300mg capsule PO SCH ×2 (08:10→13:38)
[2020-08-26] MEDS: pantoprazole 40 MG vial IV SCH (08:11)
[2020-08-26] MEDS: spironolactone 25 MG tablet PO SCH (08:11)
[2020-08-26] MEDS: lactobacillus rhamnosus 10,000 MMU CELLS/CAPSULE PO SCH (08:11)
[2020-08-26] MEDS: furosemide 10 MG/1 ML 10ml inj IV SCH ×2 (08:11→22:00)
[2020-08-26] MEDS: carvedilol 6.25mg tablet PO SCH (08:14)
[2020-08-26] MEDS: ceFAZolin 2gm in dextrose, iso 50 ML IV SCH ×3 (08:14→17:10)
[2020-08-26 09:06] LABS: HEMATOCRIT 24.2 % (35.0-45.0); HEMOGLOBIN 8.2 g/dl (12.0-16.0); MEAN CORPUSCULAR HEMOGLOBIN 29.5 PG (27.0-31.0); MEAN CORPUSCULAR VOLUME 86.6 FL (78-98); MEAN PLATELET VOLUME 8.3 FL (7.4-10.4); PLATELET COUNT 104 X10'3 (140-440); RED CELL DISTRIBUTION WIDTH 16.1 % (11.5-14.5); WHITE BLOOD COUNT 7.8 X10'3 (4.5-11.0)
--- NOTE | 2020-08-26 09:46 | NUR ---
called Dr. Ospina at 0915, and 09, no response, attempt to report ptt will be done again later.
--- NOTE | 2020-08-26 09:59 | NUR ---
spoke to Dr. Ospina, reports ptt 72, stated no problem.
[2020-08-26] MEDS: morphine 2 MG/ML inj. syringe IV PRN (13:03)
--- NOTE | 2020-08-26 13:53 | NUR ---
as per Dr. Pierre, restart patient on sedation, not ready to be extubated.
[2020-08-26] MEDS: HYDROmorphone 1 mg/ml syringe IV PRN (14:36)
--- NOTE | 2020-08-26 15:20 | NUR ---
Tube feeding consult. Per consult start tube feeds with nepro however per discussion with bedside RN, the MD is OK with any formula to meet patient's needs. Creatinine and electrolytes are WNL. Recommend Vital High Protein with goal rate of 65 ml/hr to meet needs on vent. Pt is still intubated and sedated. Recommendations: 1) Continuous tube feeding via OG tube using Vital High Protein at 65ml/hr goal. Start at 30 ml/hr and advance by 20 ml q 8 hours to goal rate. Will provide: 1560 ml volume, 1872 calories, 137 g protein, 1310 ml water. 2) additional water flush per freelance interpreter/translator 3) Paulino ONS either w/ EN or PO diet once nutrition to resume given wound healing needs 4) routine bowel care 5) weights per rx 6) upon extubation, advance to CHO controlled diet w/ Double eggs q breakfast, double meat BIDLD as medically indicated Addendum: 08/26/20 at [address] Amended: Links added.
[2020-08-26] MEDS: heparin 25,000 UNIT/250ml bag 250 ML IV SCH (15:50)
[2020-08-26] MEDS ORDERED: acetaminophen 325mg/10.15ml oral unit dose solution OGT PRN (16:08)
[2020-08-26] MEDS ORDERED: dextrose ORAL solution 15 GM/59 ML bottle OGT PRN ×2 (16:12)
--- NOTE | 2020-08-26 18:49 | NUR ---
sbar report given to night nurse, emar reviewed, questions answered.
[2020-08-26] MEDS: DOBUTamine 2000 MCG/250ML BAG IV SCH (19:22)
[2020-08-26] MEDS: K and/or MAG REPLACEMENT MC SCH (20:00)
[2020-08-26] MEDS: insulin glargine (Lantus) pen - multi-dose SQ SCH (21:00)
[2020-08-26] MEDS: gabapentin 300mg capsule OGT SCH (22:05)
[2020-08-26] MEDS: lisinopril 20mg tablet OGT SCH (22:05)
[2020-08-26] MEDS: lactobacillus rhamnosus 10,000 MMU CELLS/CAPSULE OGT SCH (22:06)
[2020-08-26] MEDS: carvedilol 6.25mg tablet OGT SCH (22:09)
[2020-08-27] VITALS (23 sets, daily range): BP systolic 12–127; BP diastolic 43–79
[2020-08-27] MEDS: NORepinephrine 8mg/ 250ml NS 250 ML IV SCH (00:22)
[2020-08-27] MEDS: ceFAZolin 2gm in dextrose, iso 50 ML IV SCH ×3 (00:38→16:41)
[2020-08-27] MEDS: FENTANYL-0.9 % NACL/PF 100 ML IV PRN (00:55)
[2020-08-27] MEDS: DexTRAN 40/D5W 500ml soln 500 ML IV SCH ×4 (03:02→20:09)
[2020-08-27] MEDS: ipratropium/albuterol 3ml nebule NEB SCH ×3 (03:04→11:34)
[2020-08-27 03:13] LABS: BASOPHILS % (AUTO) 0.4 % (0-1); EOSINOPHILS # (AUTO) 0.2 X10'3 (0-0.9); EOSINOPHILS % (AUTO) 2.7 % (0-6); HEMATOCRIT 23.2 % (35.0-45.0); HEMOGLOBIN 7.9 g/dl (12.0-16.0); LYMPHOCYTES # (AUTO) 0.5 X10'3 (1.1-4.8); LYMPHOCYTES % (AUTO) 6.4 % (21-51); MEAN CORPUSCULAR HEMOGLOBIN 29.8 PG (27.0-31.0); MEAN CORPUSCULAR HGB CONC 34.1 g/dL (33.0-36.5); MEAN CORPUSCULAR VOLUME 87.4 FL (78-98); MEAN PLATELET VOLUME 8.5 FL (7.4-10.4); MONOCYTES # (AUTO) 0.8 X10'3 (0-0.9); MONOCYTES % (AUTO) 9.8 % (2-12); NEUTROPHILS # (AUTO) 6.5 X10'3 (1.8-7.7); NEUTROPHILS % (AUTO) 80.7 % (42-75); PLATELET COUNT 126 X10'3 (140-440); RED BLOOD COUNT 2.66 X10'6 (4.20-5.60); RED CELL DISTRIBUTION WIDTH 16.3 % (11.5-14.5); WHITE BLOOD COUNT 8.1 X10'3 (4.5-11.0)
[2020-08-27 03:15] LABS: ABG BASE EXCESS 2.9 mmol/L (-2.0-2.0); ABG HCO3 25.9 mmol/L (22.0-26.0); ABG OXYGEN SATURATION 94.3 % (94-97); ABG PCO2 (T) 34.5 mmHg (32.0-45.0); ABG PO2 (T) 72.7 mmHg (75.0-100.0); FCOHb 0.7 % (0.0-3.9); FMetHb 0.4 % (0.0-1.5); FO2Hb 93.3 % (94-97); PATIENT TEMPERATURE 37.8; PEEP 5 cm H2O; RESPIRATORY RATE 14 b/min; TIDAL VOLUME 450 mL; TOTAL HEMOGLOBIN 8.4 G/dl (12.0-16.0)
[2020-08-27 03:21] LABS: ALANINE AMINOTRANSFERASE 16 U/L (12-78); ALBUMIN 0.6 G/DL (3.4-5.0); ALKALINE PHOSPHATASE 38 IU/L (46-116); ANION GAP 1 (8-16); ASPARTATE AMINO TRANSFERASE 71 U/L (10-37); BILIRUBIN,TOTAL 0.7 MG/DL (0.1-1.0); BLOOD UREA NITROGEN 8 MG/DL (7-18); BUN/CREATININE RATIO 11.8 (6.6-38.0); CALCIUM 6.5 MG/DL (8.5-10.1); CHLORIDE 103 MMOL/L (99-107); CREATININE 0.68 MG/DL (0.40-0.90); GLUCOSE 124 MG/DL (70-104); MAGNESIUM 1.4 MG/DL (1.5-2.4); PHOSPHORUS 3.5 MG/DL (2.3-4.5); POTASSIUM 3.5 MMOL/L (3.5-5.1); SODIUM 132 MMOL/L (135-145); TOTAL CARBON DIOXIDE 28.1 MMOL/L (24-32); eGFR > 90 ML/MIN
[2020-08-27 03:24] LABS: ALBUMIN/GLOBULIN RATIO 0.2 (1.1-1.5)
[2020-08-27] MEDS: lactobacillus rhamnosus 10,000 MMU CELLS/CAPSULE OGT SCH ×2 (09:18→20:00)
[2020-08-27] MEDS: gabapentin 300mg capsule OGT SCH ×3 (09:19→20:54)
[2020-08-27] MEDS: carvedilol 6.25mg tablet OGT SCH ×2 (09:19→20:00)
[2020-08-27] MEDS: spironolactone 25 MG tablet OGT SCH (09:19)
[2020-08-27] MEDS: pantoprazole 40 MG vial IV SCH (09:20)
[2020-08-27] MEDS: furosemide 10 MG/1 ML 10ml inj IV SCH ×2 (09:21→20:08)
--- NOTE | 2020-08-27 11:28 | NUR ---
Reassessment: Intubated, sedated with respiratory failure receiving tube feedings with Vital High Protein 50 ml/hr almost at goal rate, tolerating so far. Sodium is low at 132, not receiving water flush. 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 No BM since 08/20, no bowel care. Recommend bowel care if constipation continues. Recommendations: 1) Continuous tube feeding via OG tube using Vital High Protein at 65ml/hr goal. Will provide: 1560 ml volume, 1872 calories, 137 g protein, 1310 ml water. 2) additional water flush per otr flatbed driver 3) Paulino ONS either w/ EN or PO diet once nutrition to resume given wound healing needs 4) routine bowel care 5) weights per rx 6) upon extubation, advance to CHO controlled diet w/ Double eggs q breakfast, double meat BIDLD as medically indicated Addendum: 08/27/20 at [address] Amended: Links added.
[2020-08-27] MEDS: HYDROmorphone 1 mg/ml syringe IV PRN ×2 (13:23→21:29)
[2020-08-27] MEDS ORDERED: ALBUTEROL INHALER 1 PUFF/90 MCG INHALER IH PRN (14:50)
[2020-08-27] MEDS: DOBUTamine 2000 MCG/250ML BAG IV SCH (16:42)
--- NOTE | 2020-08-27 19:01 | NUR ---
SBAR report given to night nurse at beside, EMAR reviewed, questions answered.
[2020-08-27] MEDS: K and/or MAG REPLACEMENT MC SCH (20:00)
[2020-08-27] MEDS: lisinopril 20mg tablet OGT SCH (20:54)
[2020-08-27] MEDS: insulin glargine (Lantus) pen - multi-dose SQ SCH (20:55)
[2020-08-28] VITALS (23 sets, daily range): BP systolic 93–123; BP diastolic 53–82
[2020-08-28] MEDS: DexTRAN 40/D5W 500ml soln 500 ML IV SCH ×4 (02:11→21:20)
[2020-08-28] MEDS: heparin 25,000 UNIT/250ml bag 250 ML IV SCH ×3 (02:17→17:50)
[2020-08-28 02:46] LABS: BASOPHILS % (AUTO) 0.4 % (0-1); EOSINOPHILS # (AUTO) 0.1 X10'3 (0-0.9); EOSINOPHILS % (AUTO) 0.6 % (0-6); HEMATOCRIT 26.2 % (35.0-45.0); HEMOGLOBIN 8.7 g/dl (12.0-16.0); LYMPHOCYTES # (AUTO) 0.4 X10'3 (1.1-4.8); LYMPHOCYTES % (AUTO) 4.1 % (21-51); MEAN CORPUSCULAR HEMOGLOBIN 29.5 PG (27.0-31.0); MEAN CORPUSCULAR HGB CONC 33.3 g/dL (33.0-36.5); MEAN CORPUSCULAR VOLUME 88.7 FL (78-98); MEAN PLATELET VOLUME 8.3 FL (7.4-10.4); MONOCYTES # (AUTO) 0.7 X10'3 (0-0.9); MONOCYTES % (AUTO) 6.8 % (2-12); NEUTROPHILS # (AUTO) 9.3 X10'3 (1.8-7.7); NEUTROPHILS % (AUTO) 88.1 % (42-75); PLATELET COUNT 158 X10'3 (140-440); RED BLOOD COUNT 2.95 X10'6 (4.20-5.60); RED CELL DISTRIBUTION WIDTH 16.6 % (11.5-14.5); WHITE BLOOD COUNT 10.6 X10'3 (4.5-11.0)
[2020-08-28 03:00] LABS: ALANINE AMINOTRANSFERASE 13 U/L (12-78); ALBUMIN 0.7 G/DL (3.4-5.0); ALBUMIN/GLOBULIN RATIO 0.2 (1.1-1.5); ALKALINE PHOSPHATASE 46 IU/L (46-116); ANION GAP 3 (8-16); ASPARTATE AMINO TRANSFERASE 61 U/L (10-37); BILIRUBIN,TOTAL 0.9 MG/DL (0.1-1.0); BLOOD UREA NITROGEN 9 MG/DL (7-18); BUN/CREATININE RATIO 14.1 (6.6-38.0); CALCIUM 6.5 MG/DL (8.5-10.1); CHLORIDE 99 MMOL/L (99-107); CREATININE 0.64 MG/DL (0.40-0.90); GLUCOSE 198 MG/DL (70-104); MAGNESIUM 1.5 MG/DL (1.5-2.4); POTASSIUM 3.3 MMOL/L (3.5-5.1); SODIUM 130 MMOL/L (135-145); TOTAL CARBON DIOXIDE 28.3 MMOL/L (24-32); TOTAL PROTEIN 4.1 G/DL (6.4-8.2); eGFR > 90 ML/MIN
[2020-08-28] MEDS: potassium Cl 40MEQ/1/2NS 520ml 520 ML IV PRN (04:03)
[2020-08-28] MEDS: HYDROmorphone 1 mg/ml syringe IV PRN ×5 (04:57→21:04)
--- NOTE | 2020-08-28 06:45 | NUR ---
Problems reprioritized. Patient report given, questions answered & plan of care reviewed with GRACE Hamilton.
[2020-08-28] MEDS: furosemide 10 MG/1 ML 10ml inj IV SCH ×2 (08:00→19:13)
[2020-08-28] MEDS: K and/or MAG REPLACEMENT MC SCH ×3 (08:00→18:51)
[2020-08-28] MEDS: carvedilol 6.25mg tablet OGT SCH ×2 (08:00→19:14)
[2020-08-28] MEDS: lactobacillus rhamnosus 10,000 MMU CELLS/CAPSULE OGT SCH ×2 (08:00→19:14)
[2020-08-28] MEDS: spironolactone 25 MG tablet OGT SCH (08:00)
[2020-08-28] MEDS: gabapentin 300mg capsule OGT SCH ×3 (08:00→19:15)
[2020-08-28] MEDS: NORepinephrine 8mg/ 250ml NS 250 ML IV SCH ×2 (11:19→22:22)
[2020-08-28] MEDS: pantoprazole 40 MG vial IV SCH (11:45)
[2020-08-28] MEDS: ceFAZolin 2gm in dextrose, iso 50 ML IV SCH ×4 (11:45→23:42)
[2020-08-28] MEDS: DOBUTamine 2000 MCG/250ML BAG IV SCH (12:06)
[2020-08-28] MEDS: ketorolac trometh. 30mg/ml inj. IV PRN (12:21)
--- NOTE | 2020-08-28 12:44 | NUR ---
Pt has been refusing turns and to allow me to perform a skin check all morning, requesting to do it later. Initially, she said it was because she needed to cough some more before she was able to lay flat. Then she wanted to delay because of the pain. Educated patient on the need to reposition weight to prevent skin breakdown and she acknowledged understanding. Called Dr Johnston recently to ask for a dilauded CADD and he gave me an order for PRN toradol. Pt currently unable to swallow. Pt agreed to turn, do a skin check, and have a bed bath after getting toradol and dilauded, but then refused due to pain. Pt displaying manipulative and attention seeking behavior, with periods of joking and laughing, followed by intense crying and complaints of pain.
--- NOTE | 2020-08-28 12:49 | NUR ---
Pt is taking ice chips, but says she is not ready for sips of water or pills yet. MD aware Addendum: 08/28/20 at 1311 by Alfonso Neumann RN Pt now wants her meal tray; i told her we should see if she is safe to swallow and start with water but she is refusing. I educated her that the MD wants her to take a blood thinner and if she can eat her food then we should try to see if she can take the pill. She is politely refusing and states she is not ready for water or pills. I have observed pt safely take ice chips and eat her soup, but she is refusing any pills
[2020-08-28] MEDS: clopidogrel 75mg tablet PO ONE ×2 (13:12→15:58)
[2020-08-28] MEDS: HYDROcodone/acetaminophen 10/325mg tab PO PRN (19:15)
[2020-08-28 20:12] LABS: PARTIAL THROMBOPLASTIN TIME 85 SECONDS (22-32)
[2020-08-28] MEDS: lisinopril 20mg tablet OGT SCH (21:00)
[2020-08-28] MEDS ORDERED: warfarin 5mg tablet PO ONE (21:00)
[2020-08-28] MEDS: insulin Lispro (HumaLOG) vial - multi-dose SQ SCH (21:14)
[2020-08-28] MEDS: insulin glargine (Lantus) pen - multi-dose SQ SCH (21:15)
[2020-08-29] VITALS (32 sets, daily range): BP systolic 92–126; BP diastolic 57–79
[2020-08-29] MEDS: ondansetron/PF 4mg/2ml inj IV PRN ×2 (00:09→10:02)
[2020-08-29] MEDS: ketorolac trometh. 30mg/ml inj. IV PRN ×4 (00:10→22:21)
[2020-08-29] MEDS: HYDROmorphone 1 mg/ml syringe IV PRN ×3 (01:46→11:55)
[2020-08-29] MEDS: DexTRAN 40/D5W 500ml soln 500 ML IV SCH ×4 (03:44→23:22)
[2020-08-29] MEDS: heparin 25,000 UNIT/250ml bag 250 ML IV SCH (04:21)
[2020-08-29] MEDS: DOBUTamine 2000 MCG/250ML BAG IV SCH ×2 (04:23→23:20)
[2020-08-29] MEDS: HYDROcodone/acetaminophen 5mg/325mg tablet PO PRN ×2 (04:30→10:02)
[2020-08-29] MEDS: K and/or MAG REPLACEMENT MC SCH ×2 (08:00→20:00)
[2020-08-29] MEDS ORDERED: clopidogrel 75mg tablet PO SCH (08:00)
[2020-08-29] MEDS: pantoprazole 40 MG vial IV SCH (08:23)
[2020-08-29] MEDS: furosemide 10 MG/1 ML 10ml inj IV SCH ×2 (08:24→22:34)
[2020-08-29] MEDS: carvedilol 6.25mg tablet OGT SCH ×2 (08:26→22:24)
[2020-08-29] MEDS: gabapentin 300mg capsule OGT SCH ×3 (08:26→22:24)
[2020-08-29] MEDS: spironolactone 25 MG tablet OGT SCH (08:26)
[2020-08-29] MEDS: lactobacillus rhamnosus 10,000 MMU CELLS/CAPSULE OGT SCH ×2 (08:26→20:00)
[2020-08-29] MEDS: ceFAZolin 2gm in dextrose, iso 50 ML IV SCH ×2 (08:30→16:00)
[2020-08-29] MEDS: NORepinephrine 8mg/ 250ml NS 250 ML IV SCH (15:10)
--- NOTE | 2020-08-29 22:00 | NUR ---
Patient in room CICU 2006. I have received report from JANY RN and had the opportunity to ask questions and assume patient care.
--- NOTE | 2020-08-29 22:19 | NUR ---
183 received report and assumed care of pt, no distress noted, vs as charted 2129 report given to rec rn
[2020-08-29] MEDS: lisinopril 20mg tablet OGT SCH (22:25)
[2020-08-29] MEDS ORDERED: warfarin 5mg tablet PO ONE (22:50)
[2020-08-29] MEDS: insulin glargine (Lantus) pen - multi-dose SQ SCH (23:16)
[2020-08-30] VITALS (29 sets, daily range): BP systolic 83–116; BP diastolic 42–63
[2020-08-30 00:53] LABS: ALANINE AMINOTRANSFERASE 9 U/L (12-78); ALBUMIN 0.7 G/DL (3.4-5.0); ALKALINE PHOSPHATASE 79 IU/L (46-116); ANION GAP 0 (8-16); ASPARTATE AMINO TRANSFERASE 51 U/L (10-37); BILIRUBIN,TOTAL 0.7 MG/DL (0.1-1.0); BLOOD UREA NITROGEN 13 MG/DL (7-18); BUN/CREATININE RATIO 14.6 (6.6-38.0); CALCIUM 6.4 MG/DL (8.5-10.1); CHLORIDE 98 MMOL/L (99-107); CREATININE 0.89 MG/DL (0.40-0.90); GLUCOSE 172 MG/DL (70-104); MAGNESIUM 1.5 MG/DL (1.5-2.4); PHOSPHORUS 3.6 MG/DL (2.3-4.5); POTASSIUM 3.7 MMOL/L (3.5-5.1); PREALBUMIN 7.1 MG/DL (19-36); SODIUM 126 MMOL/L (135-145); eGFR 70 ML/MIN
[2020-08-30 00:54] LABS: ALBUMIN/GLOBULIN RATIO 0.2 (1.1-1.5); TOTAL PROTEIN 4.3 G/DL (6.4-8.2)
[2020-08-30 01:37] LABS: BASOPHILS % (AUTO) 0.4 % (0-1); EOSINOPHILS # (AUTO) 0.1 X10'3 (0-0.9); LYMPHOCYTES # (AUTO) 0.3 X10'3 (1.1-4.8); MEAN CORPUSCULAR HEMOGLOBIN 29.8 PG (27.0-31.0); MEAN CORPUSCULAR HGB CONC 33.6 g/dL (33.0-36.5); MEAN CORPUSCULAR VOLUME 88.7 FL (78-98); MEAN PLATELET VOLUME 8.2 FL (7.4-10.4); MONOCYTES # (AUTO) 0.4 X10'3 (0-0.9); MONOCYTES % (AUTO) 6.9 % (2-12); NEUTROPHILS # (AUTO) 5.7 X10'3 (1.8-7.7); NEUTROPHILS % (AUTO) 87.7 % (42-75); PLATELET COUNT 197 X10'3 (140-440); RED BLOOD COUNT 2.23 X10'6 (4.20-5.60); RED CELL DISTRIBUTION WIDTH 16.4 % (11.5-14.5); WHITE BLOOD COUNT 6.5 X10'3 (4.5-11.0)
[2020-08-30 01:42] LABS: HEMATOCRIT 19.8 % (35.0-45.0); HEMOGLOBIN 6.6 g/dl (12.0-16.0)
[2020-08-30] MEDS: ceFAZolin 2gm in dextrose, iso 50 ML IV SCH (01:49)
--- NOTE | 2020-08-30 01:50 | NUR ---
DVT PTT THERAPUTIC AT 85, PER [place] ORDERS, WILL KEEP HEPARIN GTT RATE SAME AT 700 UNITS PER HR, REORDER DVT PTT FOR 0750. ИРИНА EDWARDS
--- NOTE | 2020-08-30 01:57 | NUR ---
HEMOGRAM AND HEMATOCRIT CRITICAL VALUES 6.6, 19.8-CALLED TO JAZMIN, , JAZMIN STATED TO REDRAW. CHOLSALLIE RN
--- NOTE | 2020-08-30 02:01 | NUR ---
HUNG CEFTAZOLIN, OLD BAG NOT INFUSED , LAST BAG NOT FULLY OPEN. ИРИНА RN
[2020-08-30 02:34] LABS: MEAN CORPUSCULAR HEMOGLOBIN 29.7 PG (27.0-31.0); MEAN CORPUSCULAR HGB CONC 33.7 g/dL (33.0-36.5); MEAN CORPUSCULAR VOLUME 88.2 FL (78-98); MEAN PLATELET VOLUME 8.3 FL (7.4-10.4); PLATELET COUNT 193 X10'3 (140-440); RED BLOOD COUNT 2.13 X10'6 (4.20-5.60); RED CELL DISTRIBUTION WIDTH 16.1 % (11.5-14.5); WHITE BLOOD COUNT 6.5 X10'3 (4.5-11.0)
[2020-08-30 02:55] LABS: HEMATOCRIT 18.8 % (35.0-45.0); HEMOGLOBIN 6.3 g/dl (12.0-16.0)
--- NOTE | 2020-08-30 02:59 | NUR ---
CRITICAL LAB VALUE CALLED TO PROVIDER JAZMIN, H/H 6.3 AND 19.8 Addendum: 08/30/20 at 0301 by Barbara Crow RN PROVIDER WILL EVALUATE AND ORDER APPROPRIATE INTERVENTIONS. ИРИАН EDWARDS
[2020-08-30] MEDS: heparin 25,000 UNIT/250ml bag 250 ML IV SCH (03:10)
--- NOTE | 2020-08-30 03:19 | NUR ---
ACTIVE BLEEDING NOTED FROM LEFT LEG FASCIOTOMY, H/H CRITICAL 6.3/19.8; MIRIAN NOTIFIED. PROVIDER MIRIAN ORDERED TO STOP HEPARIN GTT, TAKEDOWN DRESSING AT SITE, APPLY SURGI-SEAL AND WRAP WITH GAUZE. REPEAT HEMOGRAM POST INFUSION OF ONE UNIT OF BLOOD PRODUCT PER PROTOCOL. ИРИНА EDWARDS Addendum: 08/30/20 at 0641 by Barbara Crow RN DISCUSSED DEXTRAN GTT WITH JAZMIN ; SHE STATED TO KEEP DEXTRAN OFF, THAT IT NEEDS TO BE DISCONTINUED BY SURGEON. WILL INFORM DAY SHIFT REGARDING POSSIBLE CLARIFICATION NEEDED. ИРИНА EDWARDS
[2020-08-30] MEDS: DexTRAN 40/D5W 500ml soln 500 ML IV SCH (03:55)
[2020-08-30] MEDS: ketorolac trometh. 30mg/ml inj. IV PRN ×2 (05:24→13:12)
[2020-08-30] MEDS: ondansetron/PF 4mg/2ml inj IV PRN (05:26)
[2020-08-30] MEDS: HYDROmorphone 1 mg/ml syringe IV PRN ×3 (05:34→21:14)
--- NOTE | 2020-08-30 06:30 | NUR ---
Problems reprioritized. Patient report given, questions answered & plan of care reviewed with CHIRAG EDWARDS.
[2020-08-30] MEDS: NORepinephrine 8mg/ 250ml NS 250 ML IV SCH (06:52)
--- NOTE | 2020-08-30 07:01 | NUR ---
CALLED MIRIAN TO CLARIFY ORDER FOR DEXTRAN GTT; PATIENT IS ON PLAVIX, MIRIAN STATED THAT IF PATIENT IS TAKING PLAVIX, DEXTRAN CAN BE DISCONTINUED. PATIENT ON PLAVIX STARTING 08/29. ИРИНА EDWARDS
[2020-08-30] MEDS: K and/or MAG REPLACEMENT MC SCH ×2 (08:00→20:00)
[2020-08-30] MEDS: gabapentin 300mg capsule OGT SCH ×3 (08:51→21:03)
[2020-08-30] MEDS: carvedilol 6.25mg tablet OGT SCH ×2 (08:51→20:53)
[2020-08-30] MEDS: lactobacillus rhamnosus 10,000 MMU CELLS/CAPSULE OGT SCH ×2 (08:51→20:53)
[2020-08-30] MEDS: furosemide 10 MG/1 ML 10ml inj IV SCH ×2 (08:51→20:53)
[2020-08-30] MEDS: spironolactone 25 MG tablet OGT SCH (08:51)
[2020-08-30] MEDS: clopidogrel 75mg tablet OGT SCH (08:52)
[2020-08-30] MEDS: pantoprazole 40 MG vial IV SCH (08:54)
[2020-08-30 13:44] LABS: HEMATOCRIT 24.7 % (35.0-45.0); HEMOGLOBIN 8.1 g/dl (12.0-16.0); MEAN CORPUSCULAR HEMOGLOBIN 29.2 PG (27.0-31.0); MEAN CORPUSCULAR VOLUME 88.4 FL (78-98); MEAN PLATELET VOLUME 8.1 FL (7.4-10.4); PLATELET COUNT 244 X10'3 (140-440); RED BLOOD COUNT 2.79 X10'6 (4.20-5.60); RED CELL DISTRIBUTION WIDTH 16.4 % (11.5-14.5); WHITE BLOOD COUNT 7.6 X10'3 (4.5-11.0)
--- NOTE | 2020-08-30 14:10 | NUR ---
F/u 08/30: Pt extubated advanced to carb controlled diet PO 0-25% meals past 2 days not meeting needs. LBM 08/20 10 days without bowel care this admit; MORENO d/w RN regarding routine bowel care if MD agreeable. Significant constipation likely impacting PO in addition to COVID-19 DX. Pt has bilateral calf fasciotomy surgical wounds; would benefit from Paulino smoothie BIDBD and Glucerna WL for wound healing, protein/kcal needs; MD notified. Na 126 down from 132 prior receiving lasix. Will continue to monitor for PO acceptance and additional bowel care/protein needs post-op. Recommendations: 1) Continue carb controlled diet; encourage PO 2) Paulino smoothie BIDBD and Glucerna WNL for wound healing/protein post-op 3) routine bowel care; 10 days constipation;consider opioid antagonist if MD agreeable post-op 4) weekly wts 5) IF PO improves to prior 75-100%; restart Double eggs q breakfast, double meat BIDLD Addendum: 08/30/20 at [address] Amended: Links added.
[2020-08-30] MEDS: DOBUTamine 2000 MCG/250ML BAG IV SCH (17:46)
[2020-08-30 20:22] LABS: BASOPHILS % (AUTO) 0.4 % (0-1); EOSINOPHILS # (AUTO) 0.1 X10'3 (0-0.9); EOSINOPHILS % (AUTO) 1.6 % (0-6); HEMATOCRIT 24.4 % (35.0-45.0); HEMOGLOBIN 8.2 g/dl (12.0-16.0); LYMPHOCYTES # (AUTO) 0.5 X10'3 (1.1-4.8); LYMPHOCYTES % (AUTO) 6.5 % (21-51); MEAN CORPUSCULAR HEMOGLOBIN 29.4 PG (27.0-31.0); MEAN CORPUSCULAR HGB CONC 33.5 g/dL (33.0-36.5); MEAN CORPUSCULAR VOLUME 87.5 FL (78-98); MEAN PLATELET VOLUME 8.1 FL (7.4-10.4); MONOCYTES # (AUTO) 0.7 X10'3 (0-0.9); MONOCYTES % (AUTO) 9.3 % (2-12); NEUTROPHILS # (AUTO) 6.1 X10'3 (1.8-7.7); NEUTROPHILS % (AUTO) 82.2 % (42-75); PLATELET COUNT 260 X10'3 (140-440); RED BLOOD COUNT 2.79 X10'6 (4.20-5.60); RED CELL DISTRIBUTION WIDTH 16.8 % (11.5-14.5); WHITE BLOOD COUNT 7.4 X10'3 (4.5-11.0)
[2020-08-30 20:29] LABS: PARTIAL THROMBOPLASTIN TIME 56 SECONDS (22-32)
[2020-08-30] MEDS: insulin glargine (Lantus) pen - multi-dose SQ SCH (20:56)
[2020-08-30] MEDS: lisinopril 20mg tablet OGT SCH (21:00)
[2020-08-30] MEDS ORDERED: HYDROmorphone 1 mg/ml syringe IV ONE (22:20)
[2020-08-31] VITALS (36 sets, daily range): BP systolic 85–119; BP diastolic 39–99
[2020-08-31] MEDS: HYDROmorphone 1 mg/ml syringe IV PRN ×3 (03:18→23:25)
[2020-08-31 04:05] LABS: BASOPHILS % (AUTO) 0.4 % (0-1); EOSINOPHILS # (AUTO) 0.2 X10'3 (0-0.9); EOSINOPHILS % (AUTO) 2.7 % (0-6); LYMPHOCYTES # (AUTO) 0.5 X10'3 (1.1-4.8); LYMPHOCYTES % (AUTO) 7.3 % (21-51); MEAN CORPUSCULAR HEMOGLOBIN 29.6 PG (27.0-31.0); MEAN CORPUSCULAR HGB CONC 33.6 g/dL (33.0-36.5); MEAN CORPUSCULAR VOLUME 87.9 FL (78-98); MEAN PLATELET VOLUME 8.1 FL (7.4-10.4); MONOCYTES # (AUTO) 0.7 X10'3 (0-0.9); MONOCYTES % (AUTO) 9.7 % (2-12); NEUTROPHILS # (AUTO) 5.5 X10'3 (1.8-7.7); NEUTROPHILS % (AUTO) 79.9 % (42-75); PLATELET COUNT 258 X10'3 (140-440); RED BLOOD COUNT 2.27 X10'6 (4.20-5.60); RED CELL DISTRIBUTION WIDTH 17.2 % (11.5-14.5); WHITE BLOOD COUNT 6.9 X10'3 (4.5-11.0)
[2020-08-31 04:09] LABS: HEMATOCRIT 19.9 % (35.0-45.0); HEMOGLOBIN 6.7 g/dl (12.0-16.0)
[2020-08-31 04:21] LABS: ALANINE AMINOTRANSFERASE 10 U/L (12-78); ALBUMIN 0.9 G/DL (3.4-5.0); ALKALINE PHOSPHATASE 95 IU/L (46-116); ANION GAP 3 (8-16); ASPARTATE AMINO TRANSFERASE 55 U/L (10-37); BILIRUBIN,TOTAL 0.9 MG/DL (0.1-1.0); BLOOD UREA NITROGEN 20 MG/DL (7-18); BUN/CREATININE RATIO 16.7 (6.6-38.0); CALCIUM 6.9 MG/DL (8.5-10.1); CHLORIDE 101 MMOL/L (99-107); GLUCOSE 151 MG/DL (70-104); MAGNESIUM 1.6 MG/DL (1.5-2.4); POTASSIUM 3.9 MMOL/L (3.5-5.1); SODIUM 132 MMOL/L (135-145); TOTAL CARBON DIOXIDE 27.8 MMOL/L (24-32); eGFR 50 ML/MIN
[2020-08-31 04:47] LABS: ALBUMIN/GLOBULIN RATIO 0.3 (1.1-1.5)
[2020-08-31 04:52] LABS: TOTAL CELLS COUNTED 100
[2020-08-31 04:53] LABS: PLATELET ESTIMATE NORMAL
[2020-08-31] MEDS: lactobacillus rhamnosus 10,000 MMU CELLS/CAPSULE OGT SCH ×2 (07:13→19:58)
[2020-08-31] MEDS: clopidogrel 75mg tablet OGT SCH (07:13)
[2020-08-31] MEDS: spironolactone 25 MG tablet OGT SCH (07:14)
[2020-08-31] MEDS: gabapentin 300mg capsule OGT SCH ×3 (07:14→19:58)
[2020-08-31] MEDS: pantoprazole 40 MG vial IV SCH (07:14)
[2020-08-31] MEDS: carvedilol 6.25mg tablet OGT SCH ×2 (07:14→19:58)
[2020-08-31] MEDS: ketorolac trometh. 30mg/ml inj. IV PRN ×3 (07:15→19:57)
[2020-08-31] MEDS: K and/or MAG REPLACEMENT MC SCH ×2 (08:00→20:02)
[2020-08-31] MEDS: furosemide 10 MG/1 ML 10ml inj IV SCH ×2 (08:00→19:56)
[2020-08-31] MEDS ORDERED: lactulose 20gm/30ml cup PO PRN (09:15)
[2020-08-31] MEDS ORDERED: bisacodyl 10mg suppository rectal RC PRN (09:15)
--- NOTE | 2020-08-31 10:55 | NUR ---
F/u: Still no BM since 08/20, d/w PRPamela Dulcolax suppository and Lactulose added to med list today. Recommend routine bowel care in view of 11 days no BM. Will continue to follow closely. Addendum: 08/31/20 at [address] Amended: Links added.
[2020-08-31] MEDS: DOBUTamine 2000 MCG/250ML BAG IV SCH (13:38)
[2020-08-31] MEDS: NUT.TX.GLUC.INTOLER,LAC-FR,SOY (GLUCERNA) 237 ML PO SCH (14:55)
[2020-08-31] MEDS: JUVEN Smoothie Arginine/Glut./Ca2+Bmb (Juven 19.3pkt) 240ml cup PO SCH ×3 (14:56→17:30)
[2020-08-31 15:04] LABS: HEMOGLOBIN 7.4 g/dl (12.0-16.0); MEAN CORPUSCULAR HEMOGLOBIN 29.9 PG (27.0-31.0); MEAN CORPUSCULAR HGB CONC 33.9 g/dL (33.0-36.5); MEAN CORPUSCULAR VOLUME 88.2 FL (78-98); PLATELET COUNT 265 X10'3 (140-440); RED BLOOD COUNT 2.47 X10'6 (4.20-5.60); RED CELL DISTRIBUTION WIDTH 16.4 % (11.5-14.5); WHITE BLOOD COUNT 6.9 X10'3 (4.5-11.0)
[2020-08-31 15:11] LABS: HEMATOCRIT 21.8 % (35.0-45.0)
--- NOTE | 2020-08-31 16:42 | NUR ---
RECHECK H/H SHOWED CRITICAL HCT 21.8, CALLED DR BOSTON ORDERS RECEIVED FOR 2 UNITS PRBC, INSTRUCTED TO CALL DR VELA. CALLED DR VELA WHO WAS IN SURGERY, SPOKE TO THROUGH NAGI FROM OR, INSTRUCTED TO SEND PICTURE OF LEG TO SEE "WHERE IT IS BLEEDING FROM". PICTURE SENT, MIRIAN CALLED FOR FOLLOW UP, ORDERS RECEIVED FOR 2 FFP TO BE INFUSED REWRAP LEG WITH WET 4X4S, LAP PADS AND CURLEX. WOUND CARE PROVIDED PER NEW ORDERS.
--- NOTE | 2020-08-31 18:30 | NUR ---
Dr Johnston Bedside. undressed incision on left calf, attempted to cauterize. Incision kept bleeding, Dr wrapped with gauze, abd pad and pamela bandage tight, and instructed to change if soiled.
[2020-08-31] MEDS: docusate sod 100mg capsule PO SCH (19:58)
[2020-08-31] MEDS: sennosides/docusate sodium tablet PO SCH (20:01)
[2020-08-31] MEDS: lisinopril 20mg tablet OGT SCH (20:02)
[2020-08-31] MEDS: insulin glargine (Lantus) pen - multi-dose SQ SCH (21:56)
[2020-08-31] MEDS: oxyCODONE/APAP 10/325mg tablet PO PRN (22:14)
[2020-09-01] VITALS (24 sets, daily range): BP systolic 99–125; BP diastolic 53–88
[2020-09-01] MEDS: ketorolac trometh. 30mg/ml inj. IV PRN ×2 (01:50→09:02)
[2020-09-01 02:45] LABS: BASOPHILS # (AUTO) 0.1 X10'3 (0-0.2); BASOPHILS % (AUTO) 0.8 % (0-1); EOSINOPHILS # (AUTO) 0.2 X10'3 (0-0.9); EOSINOPHILS % (AUTO) 2.8 % (0-6); HEMATOCRIT 25.3 % (35.0-45.0); HEMOGLOBIN 8.7 g/dl (12.0-16.0); LYMPHOCYTES # (AUTO) 0.6 X10'3 (1.1-4.8); LYMPHOCYTES % (AUTO) 8.6 % (21-51); MEAN CORPUSCULAR HGB CONC 34.4 g/dL (33.0-36.5); MEAN CORPUSCULAR VOLUME 87.2 FL (78-98); MONOCYTES # (AUTO) 0.7 X10'3 (0-0.9); MONOCYTES % (AUTO) 9.8 % (2-12); NEUTROPHILS # (AUTO) 5.5 X10'3 (1.8-7.7); PLATELET COUNT 261 X10'3 (140-440); RED BLOOD COUNT 2.89 X10'6 (4.20-5.60); RED CELL DISTRIBUTION WIDTH 14.7 % (11.5-14.5); WHITE BLOOD COUNT 7.1 X10'3 (4.5-11.0)
[2020-09-01 03:02] LABS: ALANINE AMINOTRANSFERASE 13 U/L (12-78); ALBUMIN 1.3 G/DL (3.4-5.0); ALKALINE PHOSPHATASE 114 IU/L (46-116); ANION GAP 5 (8-16); ASPARTATE AMINO TRANSFERASE 50 U/L (10-37); BILIRUBIN,TOTAL 1.2 MG/DL (0.1-1.0); BLOOD UREA NITROGEN 27 MG/DL (7-18); BUN/CREATININE RATIO 23.7 (6.6-38.0); CHLORIDE 103 MMOL/L (99-107); CREATININE 1.14 MG/DL (0.40-0.90); GLUCOSE 136 MG/DL (70-104); MAGNESIUM 1.8 MG/DL (1.5-2.4); POTASSIUM 3.9 MMOL/L (3.5-5.1); SODIUM 134 MMOL/L (135-145); TOTAL CARBON DIOXIDE 26.5 MMOL/L (24-32); eGFR 53 ML/MIN
[2020-09-01 03:15] LABS: ALBUMIN/GLOBULIN RATIO 0.4 (1.1-1.5); TOTAL PROTEIN 4.4 G/DL (6.4-8.2)
[2020-09-01] MEDS: HYDROmorphone 1 mg/ml syringe IV PRN ×5 (03:31→19:55)
--- NOTE | 2020-09-01 06:20 | NUR ---
Patient in room CICU 2007. I have received report from Altaf Vogel RN and had the opportunity to ask questions and assume patient care.
[2020-09-01] MEDS: JUVEN Smoothie Arginine/Glut./Ca2+Bmb (Juven 19.3pkt) 240ml cup PO SCH ×3 (07:30→18:19)
[2020-09-01] MEDS: spironolactone 25 MG tablet OGT SCH (07:50)
[2020-09-01] MEDS: docusate sod 100mg capsule PO SCH ×2 (07:51→19:54)
[2020-09-01] MEDS: gabapentin 300mg capsule OGT SCH ×3 (07:51→21:27)
[2020-09-01] MEDS: clopidogrel 75mg tablet OGT SCH (07:51)
[2020-09-01] MEDS: carvedilol 6.25mg tablet OGT SCH ×2 (07:51→19:51)
[2020-09-01] MEDS: pantoprazole 40 MG vial IV SCH (07:52)
[2020-09-01] MEDS: lactobacillus rhamnosus 10,000 MMU CELLS/CAPSULE OGT SCH ×2 (07:52→19:49)
[2020-09-01] MEDS: furosemide 10 MG/1 ML 10ml inj IV SCH ×2 (07:53→19:50)
[2020-09-01] MEDS: K and/or MAG REPLACEMENT MC SCH ×2 (08:00→20:00)
--- NOTE | 2020-09-01 08:45 | NUR ---
Dr. Fleming at bedside with patient and nurse. aware that patient is still bleeding and oozing blood. MD happy with results of receiving blood FFP. As of now levels are holding. Patient in good mood and able to clean self. Patient expressed that they have not had a BM. Lactulose was given, patient wanting to use commode, but due to the leg wounds Advice bedpan usage only. Will continue to monitor.
[2020-09-01 09:29] LABS: BASOPHILS # (AUTO) 0.1 X10'3 (0-0.2); BASOPHILS % (AUTO) 0.7 % (0-1); EOSINOPHILS # (AUTO) 0.3 X10'3 (0-0.9); EOSINOPHILS % (AUTO) 3.7 % (0-6); HEMATOCRIT 27.3 % (35.0-45.0); HEMOGLOBIN 9.2 g/dl (12.0-16.0); LYMPHOCYTES # (AUTO) 0.6 X10'3 (1.1-4.8); LYMPHOCYTES % (AUTO) 8.3 % (21-51); MEAN CORPUSCULAR HEMOGLOBIN 29.6 PG (27.0-31.0); MEAN CORPUSCULAR HGB CONC 33.8 g/dL (33.0-36.5); MEAN CORPUSCULAR VOLUME 87.6 FL (78-98); MEAN PLATELET VOLUME 7.7 FL (7.4-10.4); MONOCYTES # (AUTO) 0.6 X10'3 (0-0.9); MONOCYTES % (AUTO) 8.4 % (2-12); NEUTROPHILS # (AUTO) 6.1 X10'3 (1.8-7.7); NEUTROPHILS % (AUTO) 78.9 % (42-75); PLATELET COUNT 288 X10'3 (140-440); RED BLOOD COUNT 3.12 X10'6 (4.20-5.60); WHITE BLOOD COUNT 7.7 X10'3 (4.5-11.0)
[2020-09-01] MEDS: DOBUTamine 2000 MCG/250ML BAG IV SCH (11:52)
[2020-09-01] MEDS: NUT.TX.GLUC.INTOLER,LAC-FR,SOY (GLUCERNA) 237 ML PO SCH (12:30)
--- NOTE | 2020-09-01 13:44 | NUR ---
Dr. Johnston at bedside with patient and nurse. Vickie wanting pt to do PT Now with a dosage of Coumadin 5 tonight and then redraw 0500 PTT/INR in Am. Going forward pt is needing an anticoagulant, but would like to watch INR/PTT. Will continue to monitor.
--- NOTE | 2020-09-01 13:54 | NUR ---
Personal staff from [employer] called regarding the Life vest patient is to be wearing. As of right now pt does not have vest on. Call charge nurse to notify what to do. Will continue to monitor.
--- NOTE | 2020-09-01 15:04 | NUR ---
Patient had a large diarrhea bowel movement. Pt was able to transfer to bedside commode with 1-2x assist. Patient stated that her feet were not working and needed help with assistance. PT eval and treat has been ordered as Dr. Gee suggested. Will continue to monitor.
--- NOTE | 2020-09-01 15:50 | NUR ---
Patient was able to pivot to commode. Both legs began to weep, mostly the left leg weeping with blood. Patient did not tolerate well. Legs very painful and patient unable to control weight bearing to either leg. PT eval n treat has been ordered. Will we continue to monitor.
--- NOTE | 2020-09-01 17:54 | NUR ---
Called [facility] to request smoothies and supplements drinks. Said they will send some extras up. Patient needs extra protein to help bilateral legs heal. Will continue to promote.
--- NOTE | 2020-09-01 18:23 | NUR ---
Problems reprioritized. Patient report given, questions answered & plan of care reviewed with Zhang Vogel RN.
[2020-09-01] MEDS: oxyCODONE/APAP 10/325mg tablet PO PRN (18:42)
[2020-09-01] MEDS: ondansetron/PF 4mg/2ml inj IV PRN (18:43)
[2020-09-01] MEDS: sennosides/docusate sodium tablet PO SCH (19:54)
[2020-09-01] MEDS: insulin glargine (Lantus) pen - multi-dose SQ SCH (20:51)
[2020-09-01] MEDS ORDERED: warfarin 5mg tablet PO ONE (21:00)
[2020-09-01] MEDS: lisinopril 20mg tablet OGT SCH (21:29)
--- NOTE | 2020-09-01 22:16 | NUR ---
LLE dressing changed after previous episode of oozing during day shift. No active bleeding or oozing noted. Incision cleansed and new dressing applied. Pulses palpable faint, R>L.
[2020-09-02] VITALS (24 sets, daily range): BP systolic 93–115; BP diastolic 46–64
[2020-09-02] MEDS: HYDROmorphone 1 mg/ml syringe IV PRN ×5 (00:41→23:04)
[2020-09-02 04:45] LABS: BASOPHILS # (AUTO) 0.1 X10'3 (0-0.2); BASOPHILS % (AUTO) 0.7 % (0-1); EOSINOPHILS # (AUTO) 0.3 X10'3 (0-0.9); EOSINOPHILS % (AUTO) 3.6 % (0-6); HEMOGLOBIN 8.3 g/dl (12.0-16.0); LYMPHOCYTES # (AUTO) 0.8 X10'3 (1.1-4.8); LYMPHOCYTES % (AUTO) 9.1 % (21-51); MEAN CORPUSCULAR HEMOGLOBIN 30.3 PG (27.0-31.0); MEAN CORPUSCULAR HGB CONC 34.7 g/dL (33.0-36.5); MEAN CORPUSCULAR VOLUME 87.4 FL (78-98); MONOCYTES # (AUTO) 0.7 X10'3 (0-0.9); MONOCYTES % (AUTO) 8.5 % (2-12); NEUTROPHILS # (AUTO) 6.7 X10'3 (1.8-7.7); NEUTROPHILS % (AUTO) 78.1 % (42-75); PLATELET COUNT 319 X10'3 (140-440); RED BLOOD COUNT 2.75 X10'6 (4.20-5.60); WHITE BLOOD COUNT 8.6 X10'3 (4.5-11.0)
[2020-09-02 04:57] LABS: ALANINE AMINOTRANSFERASE 17 U/L (12-78); ALBUMIN 1.3 G/DL (3.4-5.0); ALKALINE PHOSPHATASE 149 IU/L (46-116); ANION GAP 2 (8-16); ASPARTATE AMINO TRANSFERASE 51 U/L (10-37); BLOOD UREA NITROGEN 28 MG/DL (7-18); BUN/CREATININE RATIO 28.9 (6.6-38.0); CALCIUM 7.1 MG/DL (8.5-10.1); CHLORIDE 99 MMOL/L (99-107); CREATININE 0.97 MG/DL (0.40-0.90); GLUCOSE 190 MG/DL (70-104); MAGNESIUM 1.7 MG/DL (1.5-2.4); POTASSIUM 4.6 MMOL/L (3.5-5.1); PREALBUMIN 12.4 MG/DL (19-36); SODIUM 129 MMOL/L (135-145); TOTAL CARBON DIOXIDE 27.9 MMOL/L (24-32); eGFR 64 ML/MIN
[2020-09-02 05:15] LABS: ALBUMIN/GLOBULIN RATIO 0.4 (1.1-1.5); TOTAL PROTEIN 4.6 G/DL (6.4-8.2)
[2020-09-02] MEDS: DOBUTamine 2000 MCG/250ML BAG IV SCH (05:29)
--- NOTE | 2020-09-02 06:05 | NUR ---
Pt called this RN to room and said "I just took ibuprofen that I had in my purse." This RN informed pt hospital policy on home med. Pt admitted to having ibuprofen and gabapentin in purse. RN collected both containers of home medications. 600mg ibuprofen and 300mg gabapentin removed from pt belongings, pharmacy form filled out. Pt verbalized unstanding.
[2020-09-02] MEDS: carvedilol 6.25mg tablet OGT SCH ×2 (07:27→19:07)
[2020-09-02] MEDS: clopidogrel 75mg tablet OGT SCH (07:27)
[2020-09-02] MEDS: lactobacillus rhamnosus 10,000 MMU CELLS/CAPSULE OGT SCH ×2 (07:27→19:06)
[2020-09-02] MEDS: gabapentin 300mg capsule OGT SCH ×3 (07:27→19:06)
[2020-09-02] MEDS: docusate sod 100mg capsule PO SCH ×2 (07:27→19:08)
[2020-09-02] MEDS: pantoprazole 40 MG vial IV SCH (07:28)
[2020-09-02] MEDS: spironolactone 25 MG tablet OGT SCH (07:28)
[2020-09-02] MEDS: furosemide 10 MG/1 ML 10ml inj IV SCH ×2 (07:31→19:07)
[2020-09-02] MEDS: JUVEN Smoothie Arginine/Glut./Ca2+Bmb (Juven 19.3pkt) 240ml cup PO SCH ×2 (07:44→17:59)
[2020-09-02] MEDS: K and/or MAG REPLACEMENT MC SCH ×2 (08:00→19:23)
--- NOTE | 2020-09-02 08:55 | NUR ---
pt's home Meds taken to pharmacy, receipt in chart. pt c/o that her "pain in not being addressed" Informed her of pain medication orders already ordered.
--- NOTE | 2020-09-02 11:22 | NUR ---
Reassessment: Per [facility] notes bilat leg full thickness surgical wound has muscle tissue exposed and pt with a wound VAC in place. Pt continues on CHO controlled diet and PO intake up to 100% since lunch 09/01. Pt with 100% PO intake of Paulino smoothie BIDBD however refused first Glucerna WL. Glucerna may not be indicated if pt continues with good PO intake of meals and Paulino smoothie. LBM 09/01 documented with diarrhea after receiving bowel care and not having a BM for 12 days. No changes to nutrition intervention at this time. Will continue to follow and make recommendations as appropriate. Recommendations: 1) Continue carb controlled diet 2) Paulino smoothie BIDBD and Glucerna WL for wound healing/protein post-op 3) routine bowel care 4) weekly scaled wts 5) IF PO improves to prior 75-100%; restart Double eggs q breakfast, double meat BIDLD Addendum: 09/02/20 at [address] Amended: Links added.
[2020-09-02] MEDS: oxyCODONE/APAP 10/325mg tablet PO PRN ×2 (11:47→20:49)
[2020-09-02] MEDS: NUT.TX.GLUC.INTOLER,LAC-FR,SOY (GLUCERNA) 237 ML PO SCH (12:49)
[2020-09-02] MEDS: insulin Lispro (HumaLOG) vial - multi-dose SQ SCH ×2 (13:25→19:20)
[2020-09-02] MEDS: lisinopril 20mg tablet OGT SCH (19:07)
[2020-09-02] MEDS: sennosides/docusate sodium tablet PO SCH (19:07)
[2020-09-02] MEDS: insulin glargine (Lantus) pen - multi-dose SQ SCH (19:22)
[2020-09-02] MEDS ORDERED: warfarin 7.5mg tablet PO ONE (21:00)
[2020-09-03] VITALS (19 sets, daily range): BP systolic 87–126; BP diastolic 42–94
[2020-09-03] MEDS: HYDROmorphone 1 mg/ml syringe IV PRN ×4 (02:58→20:01)
[2020-09-03 03:34] LABS: BASOPHILS # (AUTO) 0.1 X10'3 (0-0.2); BASOPHILS % (AUTO) 0.7 % (0-1); EOSINOPHILS # (AUTO) 0.3 X10'3 (0-0.9); EOSINOPHILS % (AUTO) 3.5 % (0-6); HEMOGLOBIN 8.6 g/dl (12.0-16.0); LYMPHOCYTES # (AUTO) 0.8 X10'3 (1.1-4.8); LYMPHOCYTES % (AUTO) 8.7 % (21-51); MEAN CORPUSCULAR HEMOGLOBIN 30.7 PG (27.0-31.0); MEAN CORPUSCULAR HGB CONC 34.4 g/dL (33.0-36.5); MEAN CORPUSCULAR VOLUME 89.3 FL (78-98); MEAN PLATELET VOLUME 7.7 FL (7.4-10.4); MONOCYTES # (AUTO) 0.8 X10'3 (0-0.9); MONOCYTES % (AUTO) 8.7 % (2-12); NEUTROPHILS # (AUTO) 7.1 X10'3 (1.8-7.7); NEUTROPHILS % (AUTO) 78.4 % (42-75); PLATELET COUNT 390 X10'3 (140-440); RED BLOOD COUNT 2.79 X10'6 (4.20-5.60); RED CELL DISTRIBUTION WIDTH 15.4 % (11.5-14.5); WHITE BLOOD COUNT 9.1 X10'3 (4.5-11.0)
[2020-09-03 03:49] LABS: ALANINE AMINOTRANSFERASE 17 U/L (12-78); ALBUMIN 1.5 G/DL (3.4-5.0); ALKALINE PHOSPHATASE 153 IU/L (46-116); ANION GAP 3 (8-16); ASPARTATE AMINO TRANSFERASE 42 U/L (10-37); BILIRUBIN,TOTAL 0.9 MG/DL (0.1-1.0); BLOOD UREA NITROGEN 38 MG/DL (7-18); BUN/CREATININE RATIO 35.5 (6.6-38.0); CALCIUM 7.5 MG/DL (8.5-10.1); CHLORIDE 97 MMOL/L (99-107); CREATININE 1.07 MG/DL (0.40-0.90); GLUCOSE 232 MG/DL (70-104); MAGNESIUM 1.8 MG/DL (1.5-2.4); POTASSIUM 5.1 MMOL/L (3.5-5.1); SODIUM 129 MMOL/L (135-145); eGFR 57 ML/MIN
[2020-09-03 04:03] LABS: ALBUMIN/GLOBULIN RATIO 0.4 (1.1-1.5); TOTAL PROTEIN 5.5 G/DL (6.4-8.2)
[2020-09-03] MEDS: oxyCODONE/APAP 10/325mg tablet PO PRN ×3 (05:35→18:03)
[2020-09-03] MEDS: K and/or MAG REPLACEMENT MC SCH ×2 (08:00→20:00)
[2020-09-03] MEDS: JUVEN Smoothie Arginine/Glut./Ca2+Bmb (Juven 19.3pkt) 240ml cup PO SCH ×2 (08:05→17:30)
[2020-09-03] MEDS: lactobacillus rhamnosus 10,000 MMU CELLS/CAPSULE OGT SCH ×2 (08:06→20:11)
[2020-09-03] MEDS: pantoprazole 40 MG vial IV SCH (08:06)
[2020-09-03] MEDS: furosemide 10 MG/1 ML 10ml inj IV SCH ×2 (08:06→20:10)
[2020-09-03] MEDS: docusate sod 100mg capsule PO SCH ×2 (08:07→20:10)
[2020-09-03] MEDS: gabapentin 300mg capsule OGT SCH ×3 (08:07→20:10)
[2020-09-03] MEDS: carvedilol 6.25mg tablet OGT SCH ×2 (08:07→20:11)
[2020-09-03] MEDS: clopidogrel 75mg tablet OGT SCH (08:07)
[2020-09-03] MEDS: spironolactone 25 MG tablet OGT SCH (08:07)
[2020-09-03] MEDS: insulin Lispro (HumaLOG) vial - multi-dose SQ SCH ×3 (08:53→18:48)
[2020-09-03] MEDS: NUT.TX.GLUC.INTOLER,LAC-FR,SOY (GLUCERNA) 237 ML PO SCH (12:28)
--- NOTE | 2020-09-03 16:40 | NUR ---
Wound vac's to bilateral groin DC'd per Dr. Tovar. Wound vac's to BLE changed by wound care nurse. Patient medicated with Dilaudid and Percocet for c/o pain. Dobutamine drip dc'd per orders. Report called to Rita on ACCE unit. Patient transported via bed with all belongings. No problems noted at that time.
--- NOTE | 2020-09-03 18:15 | NUR ---
Patient in room MED 315. I have received report from GRACE Salinas and had the opportunity to ask questions and assume patient care.
[2020-09-03] MEDS: sennosides/docusate sodium tablet PO SCH (20:10)
[2020-09-03] MEDS: lisinopril 20mg tablet OGT SCH (20:11)
[2020-09-03] MEDS: insulin glargine (Lantus) pen - multi-dose SQ SCH (21:09)
[2020-09-04] VITALS (11 sets, daily range): BP systolic 79–118; BP diastolic 35–76
[2020-09-04] MEDS: HYDROmorphone 1 mg/ml syringe IV PRN ×2 (02:00→08:55)
--- NOTE | 2020-09-04 04:55 | NUR ---
Pt. didn't sleep at all.She was in a lot of pain and discomfort .Pain meds. has been alternating per PRN order .We will continue with pt. care.
[2020-09-04] MEDS: oxyCODONE/APAP 10/325mg tablet PO PRN ×4 (05:56→19:56)
[2020-09-04 06:24] LABS: BASOPHILS # (AUTO) 0.1 X10'3 (0-0.2); BASOPHILS % (AUTO) 0.7 % (0-1); EOSINOPHILS # (AUTO) 0.3 X10'3 (0-0.9); EOSINOPHILS % (AUTO) 3.7 % (0-6); HEMATOCRIT 28.1 % (35.0-45.0); HEMOGLOBIN 9.7 g/dl (12.0-16.0); LYMPHOCYTES # (AUTO) 0.9 X10'3 (1.1-4.8); MEAN CORPUSCULAR HEMOGLOBIN 30.3 PG (27.0-31.0); MEAN CORPUSCULAR HGB CONC 34.3 g/dL (33.0-36.5); MEAN CORPUSCULAR VOLUME 88.4 FL (78-98); MEAN PLATELET VOLUME 7.7 FL (7.4-10.4); MONOCYTES # (AUTO) 0.7 X10'3 (0-0.9); MONOCYTES % (AUTO) 7.8 % (2-12); NEUTROPHILS # (AUTO) 6.7 X10'3 (1.8-7.7); NEUTROPHILS % (AUTO) 77.8 % (42-75); PLATELET COUNT 473 X10'3 (140-440); RED BLOOD COUNT 3.19 X10'6 (4.20-5.60); RED CELL DISTRIBUTION WIDTH 15.4 % (11.5-14.5); WHITE BLOOD COUNT 8.7 X10'3 (4.5-11.0)
--- NOTE | 2020-09-04 06:25 | NUR ---
Problems reprioritized. Patient report given, questions answered & plan of care reviewed with GRACE Bagley.
[2020-09-04 06:40] LABS: ALANINE AMINOTRANSFERASE 19 U/L (12-78); ALBUMIN 1.9 G/DL (3.4-5.0); ALKALINE PHOSPHATASE 179 IU/L (46-116); ANION GAP 1 (8-16); ASPARTATE AMINO TRANSFERASE 46 U/L (10-37); BLOOD UREA NITROGEN 46 MG/DL (7-18); CALCIUM 8.3 MG/DL (8.5-10.1); CHLORIDE 96 MMOL/L (99-107); CREATININE 1.07 MG/DL (0.40-0.90); GLUCOSE 189 MG/DL (70-104); MAGNESIUM 2.1 MG/DL (1.5-2.4); POTASSIUM 4.7 MMOL/L (3.5-5.1); SODIUM 128 MMOL/L (135-145); TOTAL CARBON DIOXIDE 31.2 MMOL/L (24-32); eGFR 57 ML/MIN
[2020-09-04 06:42] LABS: ALBUMIN/GLOBULIN RATIO 0.4 (1.1-1.5); TOTAL PROTEIN 6.2 G/DL (6.4-8.2)
[2020-09-04] MEDS: JUVEN Smoothie Arginine/Glut./Ca2+Bmb (Juven 19.3pkt) 240ml cup PO SCH ×2 (07:30→19:41)
--- NOTE | 2020-09-04 07:48 | NUR ---
Patient in room MED 315. I have received report from GRACE Thompson and had the opportunity to ask questions and assume patient care.
[2020-09-04] MEDS: K and/or MAG REPLACEMENT MC SCH ×2 (08:00→19:56)
[2020-09-04] MEDS ORDERED: carvedilol 6.25mg tablet PO SCH ×2 (08:19→08:48)
[2020-09-04] MEDS ORDERED: acetaminophen 325mg/10.15ml oral unit dose solution PO PRN (08:19)
[2020-09-04] MEDS ORDERED: dextrose ORAL solution 15 GM/59 ML bottle PO PRN ×2 (08:20)
[2020-09-04] MEDS ORDERED: clopidogrel 75mg tablet PO SCH (08:20)
[2020-09-04] MEDS ORDERED: lactobacillus rhamnosus 10,000 MMU CELLS/CAPSULE PO SCH (08:20)
[2020-09-04] MEDS ORDERED: spironolactone 25 MG tablet PO SCH (08:21)
[2020-09-04] MEDS ORDERED: lisinopril 20mg tablet PO SCH (08:21)
[2020-09-04] MEDS: gabapentin 300mg capsule OGT SCH ×3 (08:30→19:56)
[2020-09-04] MEDS: docusate sod 100mg capsule PO SCH ×2 (08:30→19:55)
[2020-09-04] MEDS: pantoprazole 40mg Tablet.DR PO SCH (08:35)
[2020-09-04] MEDS: furosemide 10 MG/1 ML 10ml inj IV SCH (08:36)
[2020-09-04] MEDS: clopidogrel 75mg tablet PO SCH (08:39)
[2020-09-04] MEDS: spironolactone 25 MG tablet PO SCH (08:39)
[2020-09-04] MEDS: insulin Lispro (HumaLOG) vial - multi-dose SQ SCH ×3 (08:52→19:44)
[2020-09-04] MEDS: lactobacillus rhamnosus 10,000 MMU CELLS/CAPSULE PO SCH ×2 (08:54→19:55)
--- NOTE | 2020-09-04 09:59 | NUR ---
PAGER ID: [phone] MESSAGE: Re: Nathalia Soliman Room 315. Clarification: Pharmacy only has IV 30 mg Toradol; IV route ok? Nicole [phone]
[2020-09-04] MEDS: ondansetron/PF 4mg/2ml inj IV PRN (11:25)
--- NOTE | 2020-09-04 11:59 | NUR ---
PAGER ID: [phone] MESSAGE: Re: Nathalia Soliman Room 315. Pt has had consistent low BP for 1 hour after working with PT, MAP under 60. Pt C/O dizziness, nausea & pain. Last pain med at 0855 - dilaudid & Corbin at 1055. Hx: CHF. Please advise. Nicole [phone] Addendum: 09/04/20 at 1215 by Nicole Burnette RN ordered 500ml NS bolus and hold any BP meds for now
[2020-09-04] MEDS ORDERED: normal saline 500ml IV soln 1,000 ML IV ONE (12:05)
--- NOTE | 2020-09-04 12:29 | NUR ---
RN noticed R calf seemed to be swelling and redness was noted on the perimeters of the wound around the wound vac. RN called Dr. Tovar and he told us to bao the redness on the leg to make sure it doesn't grow. No further orders at this time.
[2020-09-04] MEDS: NUT.TX.GLUC.INTOLER,LAC-FR,SOY (GLUCERNA) 237 ML PO SCH (12:30)
[2020-09-04] MEDS: ketorolac trometh. 30mg/ml inj. IV PRN (15:56)
--- NOTE | 2020-09-04 16:00 | NUR ---
pt. told RN it was time for her pain medicine. pt. has been educated on how her pain medicine is PRN and that she has to ask. when RN went to pull the medicine, pt. was asleep and didn't wake for about 30 minutes. when pt. woke up she asked for pain medicine and it was given at that time.
--- NOTE | 2020-09-04 18:07 | NUR ---
Problems reprioritized. Patient report given, questions answered & plan of care reviewed with GRACE Mancia.
--- NOTE | 2020-09-04 18:37 | NUR ---
Patient in room MED 315. I have received report from Nicole EDWARDS and Rita EDWARDS and had the opportunity to ask questions and assume patient care.
--- NOTE | 2020-09-04 18:59 | NUR ---
I have reviewed and agree with all interventions, assessments performed and documented by GRACE Rivera .
[2020-09-04] MEDS: sennosides/docusate sodium tablet PO SCH (19:56)
[2020-09-04] MEDS: insulin glargine (Lantus) pen - multi-dose SQ SCH (21:46)
[2020-09-05 02:00] VITALS: BP 108/66
[2020-09-05] MEDS: ketorolac trometh. 30mg/ml inj. IV PRN ×2 (04:04→14:08)
[2020-09-05 04:06] LABS: ALANINE AMINOTRANSFERASE 25 U/L (12-78); ALBUMIN 1.8 G/DL (3.4-5.0); ALKALINE PHOSPHATASE 175 IU/L (46-116); ANION GAP 2 (8-16); ASPARTATE AMINO TRANSFERASE 41 U/L (10-37); BILIRUBIN,TOTAL 0.9 MG/DL (0.1-1.0); BLOOD UREA NITROGEN 53 MG/DL (7-18); BUN/CREATININE RATIO 44.2 (6.6-38.0); CALCIUM 7.9 MG/DL (8.5-10.1); CHLORIDE 96 MMOL/L (99-107); GLUCOSE 157 MG/DL (70-104); POTASSIUM 5.2 MMOL/L (3.5-5.1); SODIUM 128 MMOL/L (135-145); TOTAL CARBON DIOXIDE 29.7 MMOL/L (24-32); eGFR 50 ML/MIN
[2020-09-05 04:11] LABS: BASOPHILS # (AUTO) 0.1 X10'3 (0-0.2); EOSINOPHILS # (AUTO) 0.4 X10'3 (0-0.9); EOSINOPHILS % (AUTO) 4.9 % (0-6); HEMATOCRIT 26.1 % (35.0-45.0); HEMOGLOBIN 8.9 g/dl (12.0-16.0); LYMPHOCYTES % (AUTO) 11.9 % (21-51); MEAN CORPUSCULAR HEMOGLOBIN 30.7 PG (27.0-31.0); MEAN CORPUSCULAR HGB CONC 34.2 g/dL (33.0-36.5); MEAN CORPUSCULAR VOLUME 89.6 FL (78-98); MONOCYTES # (AUTO) 0.9 X10'3 (0-0.9); MONOCYTES % (AUTO) 9.8 % (2-12); NEUTROPHILS # (AUTO) 6.3 X10'3 (1.8-7.7); NEUTROPHILS % (AUTO) 72.4 % (42-75); PLATELET COUNT 496 X10'3 (140-440); RED BLOOD COUNT 2.91 X10'6 (4.20-5.60); RED CELL DISTRIBUTION WIDTH 15.8 % (11.5-14.5); WHITE BLOOD COUNT 8.7 X10'3 (4.5-11.0)
[2020-09-05] MEDS: HYDROmorphone 1 mg/ml syringe IV PRN ×2 (05:31→15:58)
[2020-09-05 06:00] VITALS: BP 108/64
--- NOTE | 2020-09-05 06:15 | NUR ---
Patient in room MED 315. I have received report from fabiana love and had the opportunity to ask questions and assume patient care.
--- NOTE | 2020-09-05 06:31 | NUR ---
Problems reprioritized. Patient report given, questions answered & plan of care reviewed with Socorro EDWARDS.
[2020-09-05] MEDS: JUVEN Smoothie Arginine/Glut./Ca2+Bmb (Juven 19.3pkt) 240ml cup PO SCH ×2 (07:30→08:30)
[2020-09-05] MEDS: K and/or MAG REPLACEMENT MC SCH ×2 (08:00→18:56)
[2020-09-05] MEDS: gabapentin 300mg capsule OGT SCH ×3 (08:00→21:07)
[2020-09-05] MEDS: HYDROcodone/acetaminophen 10/325mg tab PO PRN (09:06)
[2020-09-05] MEDS: lactobacillus rhamnosus 10,000 MMU CELLS/CAPSULE PO SCH ×2 (09:12→21:08)
[2020-09-05] MEDS: docusate sod 100mg capsule PO SCH ×2 (09:12→21:09)
[2020-09-05] MEDS: pantoprazole 40mg Tablet.DR PO SCH (09:12)
[2020-09-05] MEDS: oxyCODONE/APAP 10/325mg tablet PO PRN ×2 (09:13→21:08)
[2020-09-05] MEDS: insulin Lispro (HumaLOG) vial - multi-dose SQ SCH ×3 (10:25→19:32)
[2020-09-05 11:00] VITALS: BP 108/56
[2020-09-05] MEDS: NUT.TX.GLUC.INTOLER,LAC-FR,SOY (GLUCERNA) 237 ML PO SCH (12:30)
[2020-09-05 14:00] VITALS: BP 106/65
--- NOTE | 2020-09-05 18:41 | NUR ---
Problems reprioritized. Patient report given, questions answered & plan of care reviewed with fabiana morgan.
[2020-09-05 20:00] VITALS: BP 108/70
[2020-09-05] MEDS: sennosides/docusate sodium tablet PO SCH (21:00)
[2020-09-05] MEDS: carVEDilol 3.125mg tablet PO SCH (21:09)
[2020-09-05] MEDS: lisinopril 2.5mg tablet PO SCH (21:10)
[2020-09-05] MEDS: insulin glargine (Lantus) pen - multi-dose SQ SCH (21:14)
[2020-09-06] VITALS: BP 113/65
--- NOTE | 2020-09-06 01:50 | NUR ---
Pt's room smells strong of Marijuana. pt was asked and denied having any. RN gave her the option of searching bags, or having security search bags, or just hand it over. She handed it over, empty canteen type container, she states she vaped it and it is empty. She states seh wont do it again. RN can see that pt is very stoned. the room is strong with scent. no further narcotic meds will be given this shift. Pt states that "she is leaving today".
[2020-09-06] MEDS: oxyCODONE/APAP 10/325mg tablet PO PRN ×2 (05:34→14:44)
[2020-09-06 06:00] VITALS: BP 120/73
--- NOTE | 2020-09-06 06:14 | NUR ---
Report given to GRACE Quintanilla.
--- NOTE | 2020-09-06 06:15 | NUR ---
Patient in room MED 315. I have received report from fabiana morgan and had the opportunity to ask questions and assume patient care.
--- NOTE | 2020-09-06 06:40 | NUR ---
Patient in room MED 315. I have received report from Socorro EDWARDS and had the opportunity to ask questions and assume patient care. Addendum: 09/06/20 at 3525 by Hiwot Guzmán RN received report at 0237
[2020-09-06] MEDS: JUVEN Smoothie Arginine/Glut./Ca2+Bmb (Juven 19.3pkt) 240ml cup PO SCH ×2 (07:30→17:30)
[2020-09-06] MEDS: K and/or MAG REPLACEMENT MC SCH ×2 (08:00→20:00)
[2020-09-06] MEDS: lactobacillus rhamnosus 10,000 MMU CELLS/CAPSULE PO SCH ×2 (08:09→21:39)
[2020-09-06] MEDS: pantoprazole 40mg Tablet.DR PO SCH (08:09)
[2020-09-06] MEDS: gabapentin 300mg capsule OGT SCH ×3 (08:09→20:20)
[2020-09-06] MEDS: docusate sod 100mg capsule PO SCH ×2 (08:10→20:19)
[2020-09-06] MEDS: carVEDilol 3.125mg tablet PO SCH ×2 (08:10→20:20)
[2020-09-06 08:42] LABS: BASOPHILS # (AUTO) 0.1 X10'3 (0-0.2); BASOPHILS % (AUTO) 1.2 % (0-1); EOSINOPHILS # (AUTO) 0.4 X10'3 (0-0.9); EOSINOPHILS % (AUTO) 5.1 % (0-6); HEMATOCRIT 25.6 % (35.0-45.0); HEMOGLOBIN 8.7 g/dl (12.0-16.0); LYMPHOCYTES # (AUTO) 0.9 X10'3 (1.1-4.8); MEAN CORPUSCULAR HEMOGLOBIN 30.5 PG (27.0-31.0); MEAN CORPUSCULAR HGB CONC 33.8 g/dL (33.0-36.5); MEAN CORPUSCULAR VOLUME 90.2 FL (78-98); MEAN PLATELET VOLUME 7.6 FL (7.4-10.4); MONOCYTES # (AUTO) 0.9 X10'3 (0-0.9); MONOCYTES % (AUTO) 10.2 % (2-12); NEUTROPHILS # (AUTO) 6.5 X10'3 (1.8-7.7); NEUTROPHILS % (AUTO) 73.5 % (42-75); PLATELET COUNT 536 X10'3 (140-440); RED BLOOD COUNT 2.84 X10'6 (4.20-5.60); WHITE BLOOD COUNT 8.8 X10'3 (4.5-11.0)
[2020-09-06 08:50] LABS: ALANINE AMINOTRANSFERASE 20 U/L (12-78); ALKALINE PHOSPHATASE 167 IU/L (46-116); ANION GAP 4 (8-16); ASPARTATE AMINO TRANSFERASE 44 U/L (10-37); BLOOD UREA NITROGEN 48 MG/DL (7-18); BUN/CREATININE RATIO 47.5 (6.6-38.0); CALCIUM 8.1 MG/DL (8.5-10.1); CHLORIDE 100 MMOL/L (99-107); CREATININE 1.01 MG/DL (0.40-0.90); GLUCOSE 136 MG/DL (70-104); MAGNESIUM 2.2 MG/DL (1.5-2.4); POTASSIUM 4.8 MMOL/L (3.5-5.1); PREALBUMIN 17.5 MG/DL (19-36); SODIUM 132 MMOL/L (135-145); TOTAL CARBON DIOXIDE 28.2 MMOL/L (24-32); eGFR 61 ML/MIN
[2020-09-06] MEDS: ketorolac trometh. 30mg/ml inj. IV PRN ×2 (09:08→22:00)
[2020-09-06] MEDS: insulin Lispro (HumaLOG) vial - multi-dose SQ SCH ×2 (09:13→19:07)
[2020-09-06] MEDS: clopidogrel 75mg tablet PO SCH (10:46)
[2020-09-06] MEDS: spironolactone 25 MG tablet PO SCH (10:47)
[2020-09-06 11:00] VITALS: BP 107/63
[2020-09-06] MEDS: HYDROmorphone 1 mg/ml syringe IV PRN ×2 (11:33→20:19)
[2020-09-06] MEDS: NUT.TX.GLUC.INTOLER,LAC-FR,SOY (GLUCERNA) 237 ML PO SCH (12:30)
[2020-09-06 14:00] VITALS: BP 97/53
[2020-09-06 18:00] VITALS: BP 103/60
--- NOTE | 2020-09-06 18:43 | NUR ---
Problems reprioritized. Patient report given, questions answered & plan of care reviewed with fabiana redding.
[2020-09-06] MEDS ORDERED: enoxaparin 80mg/0.8ml syringe SUBCUT ONE (20:00)
[2020-09-06] MEDS: sennosides/docusate sodium tablet PO SCH (20:19)
[2020-09-06] MEDS: furosemide 40mg/4ml inj IV SCH (20:19)
[2020-09-06] MEDS ORDERED: warfarin 5mg tablet PO ONE ×2 (21:00→21:55)
[2020-09-06] MEDS: lisinopril 2.5mg tablet PO SCH (21:00)
[2020-09-06] MEDS: insulin glargine (Lantus) pen - multi-dose SQ SCH (21:49)
--- NOTE | 2020-09-06 21:54 | NUR ---
Received new order from MD Johnston for 5mg Coumadin PO now.
[2020-09-06 22:00] VITALS: BP 107/60
[2020-09-07] MEDS: oxyCODONE/APAP 10/325mg tablet PO PRN ×3 (00:42→16:47)
[2020-09-07 02:00] VITALS: BP 103/56
[2020-09-07] MEDS: HYDROmorphone 1 mg/ml syringe IV PRN ×2 (02:49→13:15)
[2020-09-07 06:00] VITALS: BP 103/65
--- NOTE | 2020-09-07 06:05 | NUR ---
Patient in room MED 315. I have received report from fabiana redding and had the opportunity to ask questions and assume patient care.
--- NOTE | 2020-09-07 06:10 | NUR ---
Problems reprioritized. Patient report given, questions answered & plan of care reviewed with Socorro EDWARDS.
--- NOTE | 2020-09-07 06:20 | NUR ---
Patient in room MED 315. I have received report from fabiana patel and had the opportunity to ask questions and assume patient care.
[2020-09-07 06:24] LABS: BASOPHILS # (AUTO) 0.1 X10'3 (0-0.2); BASOPHILS % (AUTO) 1.1 % (0-1); EOSINOPHILS # (AUTO) 0.5 X10'3 (0-0.9); HEMATOCRIT 24.5 % (35.0-45.0); HEMOGLOBIN 8.3 g/dl (12.0-16.0); LYMPHOCYTES % (AUTO) 12.8 % (21-51); MEAN CORPUSCULAR HEMOGLOBIN 30.7 PG (27.0-31.0); MEAN CORPUSCULAR HGB CONC 33.8 g/dL (33.0-36.5); MEAN CORPUSCULAR VOLUME 90.9 FL (78-98); MONOCYTES # (AUTO) 0.8 X10'3 (0-0.9); MONOCYTES % (AUTO) 10.5 % (2-12); NEUTROPHILS # (AUTO) 5.3 X10'3 (1.8-7.7); NEUTROPHILS % (AUTO) 69.6 % (42-75); PLATELET COUNT 501 X10'3 (140-440); RED CELL DISTRIBUTION WIDTH 16.4 % (11.5-14.5); WHITE BLOOD COUNT 7.6 X10'3 (4.5-11.0)
[2020-09-07 06:33] LABS: ALANINE AMINOTRANSFERASE 24 U/L (12-78); ALKALINE PHOSPHATASE 167 IU/L (46-116); ANION GAP 2 (8-16); ASPARTATE AMINO TRANSFERASE 40 U/L (10-37); BILIRUBIN,TOTAL 0.8 MG/DL (0.1-1.0); BLOOD UREA NITROGEN 59 MG/DL (7-18); BUN/CREATININE RATIO 54.6 (6.6-38.0); CALCIUM 8.2 MG/DL (8.5-10.1); CHLORIDE 99 MMOL/L (99-107); CREATININE 1.08 MG/DL (0.40-0.90); GLUCOSE 133 MG/DL (70-104); MAGNESIUM 2.2 MG/DL (1.5-2.4); POTASSIUM 5.2 MMOL/L (3.5-5.1); SODIUM 130 MMOL/L (135-145); TOTAL CARBON DIOXIDE 29.3 MMOL/L (24-32); eGFR 56 ML/MIN
[2020-09-07] MEDS: JUVEN Smoothie Arginine/Glut./Ca2+Bmb (Juven 19.3pkt) 240ml cup PO SCH (07:30)
[2020-09-07] MEDS: clopidogrel 75mg tablet PO SCH (07:45)
[2020-09-07] MEDS: docusate sod 100mg capsule PO SCH (07:46)
[2020-09-07] MEDS: pantoprazole 40mg Tablet.DR PO SCH (07:46)
[2020-09-07] MEDS: spironolactone 25 MG tablet PO SCH (07:46)
[2020-09-07] MEDS: lactobacillus rhamnosus 10,000 MMU CELLS/CAPSULE PO SCH (07:46)
[2020-09-07] MEDS: furosemide 40mg/4ml inj IV SCH (07:47)
[2020-09-07] MEDS: carVEDilol 3.125mg tablet PO SCH (07:47)
[2020-09-07] MEDS: gabapentin 300mg capsule OGT SCH ×2 (07:47→13:12)
[2020-09-07] MEDS: K and/or MAG REPLACEMENT MC SCH (08:00)
[2020-09-07 10:00] VITALS: BP 111/70
--- NOTE | 2020-09-07 10:53 | NUR ---
Reassessment: Pt with 100% PO intake of meals and ONS TID. D/w dietary to send double protein TID for satiety. LB 09/06. Pt with active discharge orders at this time. Will continue to follow and monitor need for further nutrition intervention. Recommendations: 1) Continue carb controlled diet 2) Paulino smoothie BIDBD and Glucerna WL for wound healing/protein post-op 3) routine bowel care 4) weekly scaled wts 5) Double eggs q breakfast, double meat BIDLD Addendum: 09/07/20 at [address] Amended: Links added.
[2020-09-07] MEDS: ketorolac trometh. 30mg/ml inj. IV PRN (11:39)
[2020-09-07] MEDS: NUT.TX.GLUC.INTOLER,LAC-FR,SOY (GLUCERNA) 237 ML PO SCH (13:11)
[2020-09-07] MEDS ORDERED: enoxaparin 80mg/0.8ml syringe SUBCUT SCH (13:53)
[2020-09-07] MEDS: insulin Lispro (HumaLOG) vial - multi-dose SQ SCH (15:20)
--- NOTE | 2020-09-07 18:00 | NUR ---
report phoned to dexter @ [facility].IJ removed from Right neck with sterile technique,tip intact,site clear,dressed with sterile 2x2 and tegaderm,20 g iv started x1 attempt to LFA wound vacs clamped and disconnected per instructions from internet specialist ,wound vac dressings changed and photographed @1400.Pt transferred via ambulance with all belongings ,including meds from pharmacy to [facility] @5859
[2020-09-07] MEDS ORDERED: warfarin 5mg tablet PO ONE (21:00)
[2020-09-08 13:17] LABS: ANTITHROMBIN ACTIVITY 127 % (75-135); ANTITHROMBIN ANTIGEN 94 % (72-124); PROTEIN S, FREE 76 % (57-157); PROTEIN S, TOTAL 50 % (60-150)
== END 2020-09-07 17:50 | DRG 181 ==
LOC: ER 21:12 → ED HOLD 23:48 → ORTHO 4S 08-19 17:16 → PAS IN 08-21 20:20 → CICU 2S 08-22 05:50 → MED 3N 09-03 16:34
PROVIDERS: ADMIT Internal Medicine; ATTEND Internal Medicine
PROC: B32T1ZZ Computerized Tomography (CT Scan) of Left Pulmonary Artery using Low Osmolar Contrast (ICD-10-PCS; 2020-08-17)
PROC: B3201ZZ Computerized Tomography (CT Scan) of Thoracic Aorta using Low Osmolar Contrast (ICD-10-PCS; 2020-08-17)
PROC: B32S1ZZ Computerized Tomography (CT Scan) of Right Pulmonary Artery using Low Osmolar Contrast (ICD-10-PCS; 2020-08-17)
PROC: B4201ZZ Computerized Tomography (CT Scan) of Abdominal Aorta using Low Osmolar Contrast (ICD-10-PCS; 2020-08-21)
PROC: B4241ZZ Computerized Tomography (CT Scan) of Superior Mesenteric Artery using Low Osmolar Contrast (ICD-10-PCS; 2020-08-21)
PROC: B42H1ZZ Computerized Tomography (CT Scan) of Bilateral Lower Extremity Arteries using Low Osmolar Contrast (ICD-10-PCS; 2020-08-21)
PROC: B4211ZZ Computerized Tomography (CT Scan) of Celiac Artery using Low Osmolar Contrast (ICD-10-PCS; 2020-08-21)
PROC: 04CL0ZZ Extirpation of Matter from Left Femoral Artery, Open Approach (ICD-10-PCS; 2020-08-21)
PROC: 04CK0ZZ Extirpation of Matter from Right Femoral Artery, Open Approach (ICD-10-PCS; 2020-08-21)
PROC: 04CN0ZZ Extirpation of Matter from Left Popliteal Artery, Open Approach (ICD-10-PCS; 2020-08-21)
PROC: 04CM0ZZ Extirpation of Matter from Right Popliteal Artery, Open Approach (ICD-10-PCS; 2020-08-21)
PROC: 04CU0ZZ Extirpation of Matter from Left Peroneal Artery, Open Approach (ICD-10-PCS; 2020-08-21)
PROC: 04CT0ZZ Extirpation of Matter from Right Peroneal Artery, Open Approach (ICD-10-PCS; 2020-08-21)
PROC: 0KNT0ZZ Release Left Lower Leg Muscle, Open Approach (ICD-10-PCS; 2020-08-21)
PROC: 0KNT0ZZ Release Left Lower Leg Muscle, Open Approach (ICD-10-PCS; 2020-08-21)
PROC: 0KNT0ZZ Release Left Lower Leg Muscle, Open Approach (ICD-10-PCS; 2020-08-21)
PROC: 0KNT0ZZ Release Left Lower Leg Muscle, Open Approach (ICD-10-PCS; 2020-08-21)
PROC: 0KNS0ZZ Release Right Lower Leg Muscle, Open Approach (ICD-10-PCS; 2020-08-21)
PROC: 0KNS0ZZ Release Right Lower Leg Muscle, Open Approach (ICD-10-PCS; 2020-08-21)
PROC: 0KNS0ZZ Release Right Lower Leg Muscle, Open Approach (ICD-10-PCS; 2020-08-21)
PROC: 0KNS0ZZ Release Right Lower Leg Muscle, Open Approach (ICD-10-PCS; 2020-08-21)
PROC: 041M09Q Bypass Right Popliteal Artery to Lower Extremity Artery with Autologous Venous Tissue, Open Approach (ICD-10-PCS; principal; 2020-08-21 20:15)
PROC: B4201ZZ Computerized Tomography (CT Scan) of Abdominal Aorta using Low Osmolar Contrast (ICD-10-PCS; 2020-08-22)
PROC: B4241ZZ Computerized Tomography (CT Scan) of Superior Mesenteric Artery using Low Osmolar Contrast (ICD-10-PCS; 2020-08-22)
PROC: B42H1ZZ Computerized Tomography (CT Scan) of Bilateral Lower Extremity Arteries using Low Osmolar Contrast (ICD-10-PCS; 2020-08-22)
PROC: B4211ZZ Computerized Tomography (CT Scan) of Celiac Artery using Low Osmolar Contrast (ICD-10-PCS; 2020-08-22)
PROC: 5A1955Z Respiratory Ventilation, Greater than 96 Consecutive Hours (ICD-10-PCS; 2020-08-22)
PROC: 0BH17EZ Insertion of Endotracheal Airway into Trachea, Via Natural or Artificial Opening (ICD-10-PCS; 2020-08-22)
PROC: 30233N1 Transfusion of Nonautologous Red Blood Cells into Peripheral Vein, Percutaneous Approach (ICD-10-PCS; 2020-08-23)
PROC: 04CT0ZZ Extirpation of Matter from Right Peroneal Artery, Open Approach (ICD-10-PCS; 2020-08-23)
PROC: 04UR0KZ Supplement Right Posterior Tibial Artery with Nonautologous Tissue Substitute, Open Approach (ICD-10-PCS; 2020-08-23)
PROC: 0KCS0ZZ Extirpation of Matter from Right Lower Leg Muscle, Open Approach (ICD-10-PCS; 2020-08-23)
PROC: 0KCQ0ZZ Extirpation of Matter from Right Upper Leg Muscle, Open Approach (ICD-10-PCS; 2020-08-23)
PROC: 30233K1 Transfusion of Nonautologous Frozen Plasma into Peripheral Vein, Percutaneous Approach (ICD-10-PCS; 2020-08-31)
DX: I11.0 Hypertensive heart disease with heart failure (principal); U07.1 COVID-19; I74.9 Embolism and thrombosis of unspecified artery; J96.00 Acute respiratory failure, unspecified whether with hypoxia or hypercapnia; T82.898A Other specified complication of vascular prosthetic devices, implants and grafts, initial encounter; I99.8 Other disorder of circulatory system; D68.59 Other primary thrombophilia; E11.42 Type 2 diabetes mellitus with diabetic polyneuropathy; E11.51 Type 2 diabetes mellitus with diabetic peripheral angiopathy without gangrene; I42.0 Dilated cardiomyopathy; I42.7 Cardiomyopathy due to drug and external agent; I50.23 Acute on chronic systolic (congestive) heart failure; I51.3 Intracardiac thrombosis, not elsewhere classified; I70.203 Unspecified atherosclerosis of native arteries of extremities, bilateral legs; J98.11 Atelectasis; R18.8 Other ascites; D62 Acute posthemorrhagic anemia; E87.1 Hypo-osmolality and hyponatremia; E11.65 Type 2 diabetes mellitus with hyperglycemia; F12.90 Cannabis use, unspecified, uncomplicated; F15.90 Other stimulant use, unspecified, uncomplicated; Y92.230 Patient room in hospital as the place of occurrence of the external cause; Y83.2 Surgical operation with anastomosis, bypass or graft as the cause of abnormal reaction of the patient, or of later complication, without mention of misadventure at the time of the procedure; Z79.01 Long term (current) use of anticoagulants; Z79.02 Long term (current) use of antithrombotics/antiplatelets; Z79.4 Long term (current) use of insulin; Z86.711 Personal history of pulmonary embolism; Z86.718 Personal history of other venous thrombosis and embolism; Z91.14 Patient's other noncompliance with medication regimen; Z79.899 Other long term (current) drug therapy; Z91.19 Patient's noncompliance with other medical treatment and regimen
CPT/HCPCS: 36415; 36430; 36600; 71045; 71275; 73590; 75635; 76000; 77002; 80047; 80053; 81479; 82803; 82810; 82948; 83036; 83735; 83880; 83891; 83894; 83898; 84100; 84134; 84145; 84484; 85007; 85018; 85025; 85027; 85240; 85300; 85301; 85303; 85305; 85306; 85379; 85384; 85610; 85651; 85730; 86140; 86146; 86147; 86885; 86900; 86901; 86920; 86922; 87070; 87081; 87635; 92508; 92616; 93005; 93306; 93925; 94002; 94003; 94640; 94760; 94799; 96374; 97110; 97112; 97163; 97530; 99285; A4618; A6258; A6446; A6455; A7000; C1757; C1758; C1768; C9113; G0378; J0171; J0690; J1100; J1170; J1250; J1644; J1650; J1815; J1885; J1940; J2001; J2250; J2270; J2405; J2704; J3010; J3480; J7030; J7040; J7100; J7120; P9016; P9045; P9059; Q9967

== ENCOUNTER 2021-09-03 22:30 | Emergency (ER) | payer MEDICAID ==
[~2021-09-03] VITALS: Ht 170.2 cm; Wt 68.1 kg
[~2021-09-03 22:30] MED LIST changes: -APIX5TAB3 PO; -CARV3.122 PO; +CARV6.253 PO; -CHOL50004 PO; -FURO-150 PO; +FURO20TA4 PO; +GABA-530 PO; -HYDR-4069 PO; -LEVO500T89 PO; -LISI-600 PO; +LISI20TA28 PO
[2021-09-03 23:21] LABS: BASOPHILS % (AUTO) 0.5 % (0-1); EOSINOPHILS # (AUTO) 0.1 X10'3 (0-0.9); EOSINOPHILS % (AUTO) 1.5 % (0-6); HEMATOCRIT 40.4 % (35.0-45.0); HEMOGLOBIN 13.6 g/dl (12.0-16.0); LYMPHOCYTES # (AUTO) 1.5 X10'3 (1.1-4.8); LYMPHOCYTES % (AUTO) 20.7 % (21-51); MEAN CORPUSCULAR HEMOGLOBIN 29.1 PG (27.0-31.0); MEAN CORPUSCULAR HGB CONC 33.7 g/dL (33.0-36.5); MEAN CORPUSCULAR VOLUME 86.4 FL (78-98); MEAN PLATELET VOLUME 8.4 FL (7.4-10.4); MONOCYTES # (AUTO) 0.6 X10'3 (0-0.9); MONOCYTES % (AUTO) 8.8 % (2-12); NEUTROPHILS % (AUTO) 68.5 % (42-75); PLATELET COUNT 314 X10'3 (140-440); RED BLOOD COUNT 4.67 X10'6 (4.20-5.60); RED CELL DISTRIBUTION WIDTH 15.8 % (11.5-14.5); WHITE BLOOD COUNT 7.3 X10'3 (4.5-11.0)
[2021-09-03 23:32] LABS: ALANINE AMINOTRANSFERASE 34 U/L (12-78); ALBUMIN 2.4 G/DL (3.4-5.0); ALBUMIN/GLOBULIN RATIO 0.6 (1.1-1.5); ALKALINE PHOSPHATASE 112 IU/L (46-116); ANION GAP 9 (8-16); ASPARTATE AMINO TRANSFERASE 25 U/L (10-37); BILIRUBIN,TOTAL 0.4 MG/DL (0.1-1.0); BLOOD UREA NITROGEN 22 MG/DL (7-18); CALCIUM 8.6 MG/DL (8.5-10.1); CHLORIDE 103 MMOL/L (99-107); CREATININE 1.05 MG/DL (0.40-0.90); GLUCOSE 148 MG/DL (70-104); POTASSIUM 3.7 MMOL/L (3.5-5.1); SODIUM 137 MMOL/L (135-145); TOTAL CARBON DIOXIDE 25.2 MMOL/L (24-32); TOTAL PROTEIN 6.6 G/DL (6.4-8.2); eGFR 58 ML/MIN
[2021-09-03 23:40] LABS: MAGNESIUM 2.1 MG/DL (1.5-2.4)
[2021-09-03] MEDS ORDERED: morphine 4 MG/ML inj SYRINge IV PRN (23:55)
[2021-09-03] MEDS ORDERED: ondansetron/PF 4mg/2ml inj IV ONE (23:55)
[2021-09-04] MEDS ORDERED: iohexol 350MG/ML 100ml bottle IV ONE (00:28)
[2021-09-04 00:29] LABS: ETHANOL < 0.010 GM/DL (0.0-0.010)
[2021-09-04] MEDS ORDERED: furosemide 10 MG/1 ML 10ml inj IV ONE (01:40)
[2021-09-04 01:57] VITALS: BP 130/96
[2021-09-04] MEDS ORDERED: ketorolac trometh. 30mg/ml inj. IM ONE (02:35)
[2021-09-04] MEDS ORDERED: IBUP-1986 PO (02:52)
--- NOTE | 2021-09-04 03:02 | NUR ---
Patient became aggressive at discahrge. She states she didn't want to be in the lobby because of germs. she was angry about waiting for her ride in the [place] as well. patient was road tested before DC and was declared non-emergent by physician.
== END 2021-09-04 02:50 | disposition home or self-care (01) ==
LOC: ER 22:30
DX: J90 Pleural effusion, not elsewhere classified (principal); Z20.822 Contact with and (suspected) exposure to COVID-19; E11.43 Type 2 diabetes mellitus with diabetic autonomic (poly)neuropathy; F12.90 Cannabis use, unspecified, uncomplicated; I25.2 Old myocardial infarction; Z87.01 Personal history of pneumonia (recurrent); Z86.711 Personal history of pulmonary embolism; Z72.89 Other problems related to lifestyle; Z79.4 Long term (current) use of insulin; Z79.899 Other long term (current) drug therapy; Z86.16 Personal history of COVID-19
CPT/HCPCS: 36415; 71045; 71275; 80053; 80320; 83735; 83880; 84484; 85025; 87635; 93005; 96372; 96374; 99285; C9803; J1885; J1940; Q9967

== ENCOUNTER 2021-09-23 09:09 | Inpatient (IN) | payer MEDICAID ==
[~2021-09-23] VITALS: Ht 160 cm; Wt 107.0 kg
[~2021-09-23 09:09] MED LIST changes: +IBUP-1986 PO
[2021-09-23] MEDS ORDERED: morphine 4 MG/ML inj SYRINge IV ONE (09:40)
[2021-09-23] MEDS ORDERED: ondansetron/PF 4mg/2ml inj IV ONE (09:40)
[2021-09-23 10:08] LABS: BASOPHILS # (AUTO) 0.1 X10'3 (0-0.2); BASOPHILS % (AUTO) 0.8 % (0-1); EOSINOPHILS # (AUTO) 0.1 X10'3 (0-0.9); EOSINOPHILS % (AUTO) 1.6 % (0-6); HEMATOCRIT 43.1 % (35.0-45.0); HEMOGLOBIN 13.9 g/dl (12.0-16.0); LYMPHOCYTES # (AUTO) 0.8 X10'3 (1.1-4.8); LYMPHOCYTES % (AUTO) 12.8 % (21-51); MEAN CORPUSCULAR HEMOGLOBIN 27.5 PG (27.0-31.0); MEAN CORPUSCULAR HGB CONC 32.3 g/dL (33.0-36.5); MEAN CORPUSCULAR VOLUME 85.2 FL (78-98); MEAN PLATELET VOLUME 8.6 FL (7.4-10.4); MONOCYTES # (AUTO) 0.5 X10'3 (0-0.9); NEUTROPHILS # (AUTO) 4.6 X10'3 (1.8-7.7); NEUTROPHILS % (AUTO) 75.8 % (42-75); PLATELET COUNT 177 X10'3 (140-440); RED BLOOD COUNT 5.06 X10'6 (4.20-5.60); RED CELL DISTRIBUTION WIDTH 17.1 % (11.5-14.5); WHITE BLOOD COUNT 6.1 X10'3 (4.5-11.0)
[2021-09-23] MEDS ORDERED: iohexol 350MG/ML 100ml bottle IV ONE ×2 (10:18→10:19)
[2021-09-23 10:19] LABS: APTT 29 SECONDS (22-32)
[2021-09-23 10:44] LABS: ALBUMIN 2.4 G/DL (3.4-5.0); ALBUMIN/GLOBULIN RATIO 0.7 (1.1-1.5); ALKALINE PHOSPHATASE 96 IU/L (46-116); ANION GAP 17 (8-16); BILIRUBIN,TOTAL 2.5 MG/DL (0.1-1.0); BLOOD UREA NITROGEN 22 MG/DL (7-18); BUN/CREATININE RATIO 18.6 (6.6-38.0); CALCIUM 9.3 MG/DL (8.5-10.1); CHLORIDE 97 MMOL/L (99-107); CREATININE 1.18 MG/DL (0.40-0.90); GLUCOSE 143 MG/DL (70-104); SODIUM 136 MMOL/L (135-145); TOTAL CARBON DIOXIDE 22.2 MMOL/L (24-32); TOTAL PROTEIN 5.8 G/DL (6.4-8.2); eGFR 50 ML/MIN
[2021-09-23 10:45] LABS: ALANINE AMINOTRANSFERASE 1194 U/L (12-78); ASPARTATE AMINO TRANSFERASE 1232 U/L (10-37)
[2021-09-23 11:50] LABS: LIPASE < 50 U/L (73-393)
[2021-09-23] MEDS ORDERED: heparin 25,000 UNIT/250ml bag 250 ML IV SCH (12:25)
[2021-09-23] MEDS ORDERED: heparin 10,000 units/1 ML INJ IV PRN (12:25)
[2021-09-23] MEDS ORDERED: heparin 10,000 units/1 ML INJ IV ONE (12:25)
--- NOTE | 2021-09-23 13:08 | NUR ---
To CT via gurney, transport by explosive ordnance disposal technician.
[2021-09-23] MEDS ORDERED: heparin 10,000 units/1 ML INJ ONE (14:21)
[2021-09-23] MEDS ORDERED: LIDOcaine 2% 10ml TOPICAL JELLY (Urojet) TP ONE (14:25)
[2021-09-23] MEDS ORDERED: acetaminophen 325mg tablet PO PRN (14:25)
[2021-09-23] MEDS: aspirin 81mg tab.chew PO SCH (14:40)
[2021-09-23] MEDS: normal saline 1000ml 1,000 ML IV SCH (14:40)
[2021-09-23] MEDS ORDERED: CLOP75TA34 PO (15:27)
[2021-09-23] MEDS ORDERED: LISI2.5T14 PO (15:27)
[2021-09-23] MEDS ORDERED: CARV3.1244 PO (15:27)
[2021-09-23] MEDS ORDERED: WARF4TAB69 PO (15:27)
[2021-09-23] MEDS ORDERED: INSU100I39 SQ (15:30)
[2021-09-23] MEDS: tPA-cathflo 2mg/2ml IV flush 4 MG in normal saline 100ml IV soln 100 ML ICATH SCH (16:15)
[2021-09-23] MEDS: heparin 1,000 UNITS/NS 500ml 500 ML IV SCH (16:15)
[2021-09-23] MEDS ORDERED: midazolam 1 mg/ML 2ml injection ONE (16:30)
[2021-09-23] MEDS ORDERED: heparin 1,000 UNITS/NS 500ml 500 ML ONE (16:31)
[2021-09-23] MEDS ORDERED: fentaNYL/PF 50MCG/1 ML 2ML syringe ONE (16:31)
[2021-09-23] MEDS ORDERED: iohexol 300mg/ml 100ml inj. ONE (16:31)
[2021-09-23] MEDS ORDERED: human prothrombin complex-PCC 500 UNIT/20 ML VIAL IV ONE (18:35)
[2021-09-23] MEDS ORDERED: human prothrombin complex-PCC 120 ML IV ONE (18:50)
[2021-09-23] MEDS: ondansetron/PF 4mg/2ml inj IV PRN (18:51)
[2021-09-23] MEDS: morphine 2 MG/ML inj. syringe IV PRN (18:51)
[2021-09-23] MEDS ORDERED: heparin 1,000unit/ml 10ml vial 10 ML ONE (19:59)
[2021-09-23] MEDS: acetaminophen 325mg tablet PO PRN (20:52)
[2021-09-23 21:00] VITALS: BP 155/102
[2021-09-23 22:00] VITALS: BP 145/91
[2021-09-23 23:00] VITALS: BP 144/100
[2021-09-24] VITALS (22 sets, daily range): BP systolic 92–164; BP diastolic 60–111
[2021-09-24] MEDS: tPA-cathflo 2mg/2ml IV flush 4 MG in normal saline 100ml IV soln 100 ML ICATH SCH (00:18)
[2021-09-24] MEDS: normal saline 1000ml 1,000 ML IV SCH ×3 (00:40→19:41)
[2021-09-24] MEDS: morphine 2 MG/ML inj. syringe IV PRN ×5 (03:40→17:24)
[2021-09-24] MEDS: heparin 1,000 UNITS/NS 500ml 500 ML IV SCH (04:45)
[2021-09-24] MEDS: acetaminophen 325mg tablet PO PRN (05:38)
[2021-09-24 07:11] LABS: HEMATOCRIT 41.9 % (35.0-45.0); HEMOGLOBIN 13.4 g/dl (12.0-16.0); MEAN CORPUSCULAR HEMOGLOBIN 27.5 PG (27.0-31.0); MEAN CORPUSCULAR HGB CONC 31.9 g/dL (33.0-36.5); MEAN PLATELET VOLUME 8.6 FL (7.4-10.4); PLATELET COUNT 167 X10'3 (140-440); RED BLOOD COUNT 4.87 X10'6 (4.20-5.60); RED CELL DISTRIBUTION WIDTH 17.7 % (11.5-14.5); WHITE BLOOD COUNT 5.9 X10'3 (4.5-11.0)
[2021-09-24] MEDS: aspirin 81mg tab.chew PO SCH (09:00)
[2021-09-24] MEDS ORDERED: FLUSH 4 MG ICATH SCH (09:10)
[2021-09-24] MEDS ORDERED: TPA CATHFLO ICATH SCH (09:10)
[2021-09-24] MEDS ORDERED: NORMAL SALINE ICATH SCH (09:10)
[2021-09-24] MEDS ORDERED: heparin 10,000 units/1 ML INJ ONE (10:23)
[2021-09-24] MEDS ORDERED: MIDAZolam 1 MG/ML 5ML VIAL ONE (11:34)
[2021-09-24] MEDS ORDERED: fentaNYL /PF 50mcg/ml 5ml ampule ONE (11:34)
[2021-09-24] MEDS ORDERED: etomidate 2mg/ml inj. ONE (11:51)
[2021-09-24 12:26] LABS: APTT 31 SECONDS (22-32)
[2021-09-24 12:28] LABS: ALANINE AMINOTRANSFERASE 964 U/L (12-78); ALBUMIN 2.3 G/DL (3.4-5.0); ALBUMIN/GLOBULIN RATIO 0.6 (1.1-1.5); ALKALINE PHOSPHATASE 91 IU/L (46-116); ANION GAP 14 (8-16); ASPARTATE AMINO TRANSFERASE 595 U/L (10-37); BILIRUBIN,TOTAL 2.7 MG/DL (0.1-1.0); BLOOD UREA NITROGEN 20 MG/DL (7-18); BUN/CREATININE RATIO 21.3 (6.6-38.0); CALCIUM 8.5 MG/DL (8.5-10.1); CHLORIDE 99 MMOL/L (99-107); CREATININE 0.94 MG/DL (0.40-0.90); GLUCOSE 139 MG/DL (70-104); POTASSIUM 3.8 MMOL/L (3.5-5.1); SODIUM 134 MMOL/L (135-145); TOTAL CARBON DIOXIDE 21.3 MMOL/L (24-32); TOTAL PROTEIN 6.3 G/DL (6.4-8.2); eGFR 65 ML/MIN
[2021-09-24 12:37] LABS: ABG BASE EXCESS -2.4 mmol/L (-2.0-2.0); ABG HCO3 21.7 mmol/L (22.0-26.0); ABG OXYGEN SATURATION 89.8 % (94-97); ABG PCO2 (T) 33.7 mmHg (32.0-45.0); ABG PO2 (T) 54.3 mmHg (75.0-100.0); FMetHb 0.3 % (0.0-1.5); FO2Hb 88.6 % (94-97); TOTAL HEMOGLOBIN 13.7 G/dl (12.0-16.0)
[2021-09-24] MEDS ORDERED: rocuronium 10mg/ml inj IV ONE (12:45)
[2021-09-24] MEDS ORDERED: heparin 1,000unit/ml 10ml vial 10 ML ONE ×3 (12:46→15:23)
[2021-09-24] MEDS ORDERED: phenylephrine 10mg/ml inj. ONE (12:46)
[2021-09-24] MEDS ORDERED: ceFAZolin 1000mg inj ONE ×2 (12:52)
[2021-09-24] MEDS ORDERED: iohexol 300 MG/1 ML 50ml polymer ONE (14:16)
[2021-09-24] MEDS: ceFAZolin/D5W- 1GM premix 50 ML IV SCH (17:24)
[2021-09-24 17:25] LABS: BASOPHILS % (AUTO) 0.3 % (0-1); EOSINOPHILS % (AUTO) 0.1 % (0-6); HEMATOCRIT 37.6 % (35.0-45.0); LYMPHOCYTES # (AUTO) 0.5 X10'3 (1.1-4.8); LYMPHOCYTES % (AUTO) 3.9 % (21-51); MEAN CORPUSCULAR HEMOGLOBIN 27.3 PG (27.0-31.0); MEAN CORPUSCULAR VOLUME 85.3 FL (78-98); MEAN PLATELET VOLUME 8.5 FL (7.4-10.4); MONOCYTES # (AUTO) 0.4 X10'3 (0-0.9); MONOCYTES % (AUTO) 3.1 % (2-12); NEUTROPHILS # (AUTO) 10.9 X10'3 (1.8-7.7); NEUTROPHILS % (AUTO) 92.6 % (42-75); PLATELET COUNT 136 X10'3 (140-440); RED BLOOD COUNT 4.41 X10'6 (4.20-5.60); RED CELL DISTRIBUTION WIDTH 17.1 % (11.5-14.5); WHITE BLOOD COUNT 11.8 X10'3 (4.5-11.0)
[2021-09-24 17:46] LABS: APTT > 139 SECONDS (22-32)
[2021-09-24 17:55] LABS: ALANINE AMINOTRANSFERASE 696 U/L (12-78); ALBUMIN 1.6 G/DL (3.4-5.0); ALBUMIN/GLOBULIN RATIO 0.6 (1.1-1.5); ALKALINE PHOSPHATASE 74 IU/L (46-116); ANION GAP 16 (8-16); ASPARTATE AMINO TRANSFERASE 484 U/L (10-37); BILIRUBIN,TOTAL 2.8 MG/DL (0.1-1.0); BLOOD UREA NITROGEN 20 MG/DL (7-18); BUN/CREATININE RATIO 18.5 (6.6-38.0); CALCIUM 7.4 MG/DL (8.5-10.1); CHLORIDE 103 MMOL/L (99-107); CREATININE 1.08 MG/DL (0.40-0.90); GLUCOSE 145 MG/DL (70-104); MAGNESIUM 1.4 MG/DL (1.5-2.4); PHOSPHORUS 4.6 MG/DL (2.3-4.5); POTASSIUM 4.2 MMOL/L (3.5-5.1); SODIUM 139 MMOL/L (135-145); TOTAL CARBON DIOXIDE 19.8 MMOL/L (24-32); TOTAL PROTEIN 4.4 G/DL (6.4-8.2); eGFR 56 ML/MIN
--- NOTE | 2021-09-24 18:44 | NUR ---
0600: Patient lying in bed, awake, moaning in pain. Must lay flat due to sheaths present to bilateral groins with TPA infusing. Prn pain medications given as able. 0800: Patient to angio. 0830: returned from angio, Dr. Johnston consulted for surgery. 1000: patient repositioned and given prn pain meds as available for continued pain to bilateral lower extremities. 1200: patient taken to OR. 1700: Returned from OR. Drowsy, on simple mask, arousable. Yelling out and a bit disoriented to events. Reassured patient and re-oriented to situation. Wound vac to bialteral groin sites. R groin wound vac dressing not sealed and blood draining onto bed. notified, R groin wound vac dressing changed, Wound vac suction resumed and working properly. 1715: Labs and chest x-ray done per MD order. 1730: Dr. Johnston notified of repeat ptt result and difficulty getting pulses per doppler, he arrived to bedside to assess and order placed for bilateral lower extremity doppler study. 1800: report given to oncoming RN.
[2021-09-24] MEDS: famotidine/PF 10 mg/ml inj IV SCH (19:40)
[2021-09-24] MEDS: HYDROmorphone inj. 0.5 MG/0.5 ML DISP.SYRIN IV PRN (20:08)
[2021-09-24 21:40] LABS: APTT 32 SECONDS (22-32)
[2021-09-24] MEDS ORDERED: heparin 10,000 units/1 ML INJ IV PRN (21:45)
[2021-09-24] MEDS ORDERED: heparin 10,000 units/1 ML INJ IV ONE ×3 (21:45→22:00)
[2021-09-24] MEDS: heparin 25,000 UNIT/250ml bag 250 ML IV SCH (22:40)
[2021-09-25] VITALS (24 sets, daily range): BP systolic 103–126; BP diastolic 46–75
[2021-09-25] MEDS: ceFAZolin/D5W- 1GM premix 50 ML IV SCH (00:12)
[2021-09-25] MEDS: morphine 2 MG/ML inj. syringe IV PRN ×2 (00:27→12:01)
[2021-09-25 02:04] LABS: BASOPHILS % (AUTO) 0.2 % (0-1); EOSINOPHILS % (AUTO) 0.3 % (0-6); HEMATOCRIT 34.5 % (35.0-45.0); HEMOGLOBIN 10.8 g/dl (12.0-16.0); LYMPHOCYTES # (AUTO) 0.6 X10'3 (1.1-4.8); LYMPHOCYTES % (AUTO) 4.6 % (21-51); MEAN CORPUSCULAR HEMOGLOBIN 27.4 PG (27.0-31.0); MEAN CORPUSCULAR HGB CONC 31.3 g/dL (33.0-36.5); MEAN CORPUSCULAR VOLUME 87.7 FL (78-98); MEAN PLATELET VOLUME 8.9 FL (7.4-10.4); MONOCYTES # (AUTO) 0.6 X10'3 (0-0.9); MONOCYTES % (AUTO) 4.6 % (2-12); NEUTROPHILS # (AUTO) 12.7 X10'3 (1.8-7.7); NEUTROPHILS % (AUTO) 90.3 % (42-75); PLATELET COUNT 129 X10'3 (140-440); RED BLOOD COUNT 3.94 X10'6 (4.20-5.60); RED CELL DISTRIBUTION WIDTH 17.7 % (11.5-14.5); WHITE BLOOD COUNT 14.1 X10'3 (4.5-11.0)
[2021-09-25 02:53] LABS: ALANINE AMINOTRANSFERASE 667 U/L (12-78); ALBUMIN 1.6 G/DL (3.4-5.0); ALBUMIN/GLOBULIN RATIO 0.6 (1.1-1.5); ALKALINE PHOSPHATASE 70 IU/L (46-116); ANION GAP 16 (8-16); ASPARTATE AMINO TRANSFERASE 530 U/L (10-37); BILIRUBIN,TOTAL 2.6 MG/DL (0.1-1.0); BLOOD UREA NITROGEN 25 MG/DL (7-18); BUN/CREATININE RATIO 16.4 (6.6-38.0); CALCIUM 7.1 MG/DL (8.5-10.1); CHLORIDE 102 MMOL/L (99-107); CREATININE 1.52 MG/DL (0.40-0.90); GLUCOSE 175 MG/DL (70-104); MAGNESIUM 1.5 MG/DL (1.5-2.4); POTASSIUM 4.4 MMOL/L (3.5-5.1); SODIUM 139 MMOL/L (135-145); TOTAL CARBON DIOXIDE 20.6 MMOL/L (24-32); TOTAL PROTEIN 4.4 G/DL (6.4-8.2); eGFR 38 ML/MIN
[2021-09-25] MEDS: HYDROcodone/acetaminophen 10/325mg tab PO PRN ×4 (05:20→23:50)
[2021-09-25] MEDS: normal saline 1000ml 1,000 ML IV SCH ×3 (05:21→19:19)
[2021-09-25 07:46] LABS: APTT > 139 SECONDS (22-32)
[2021-09-25] MEDS: aspirin 81mg tab.chew PO SCH (09:11)
[2021-09-25] MEDS: famotidine/PF 10 mg/ml inj IV SCH ×2 (09:12→19:38)
[2021-09-25] MEDS ORDERED: dextrose 50%-water 50ml dispensing syringe IV PRN ×2 (09:20)
[2021-09-25] MEDS ORDERED: DEXTROSE 15 GM of carb/4 tabs (each vial/BOTTLE has 4 tablets) PO PRN ×2 (09:20)
[2021-09-25] MEDS ORDERED: MESSAGE TO PHARMACY PO ONE (09:20)
[2021-09-25] MEDS ORDERED: glucagon, human recombinant 1mg kit SUBCUT PRN (09:20)
--- NOTE | 2021-09-25 09:29 | NUR ---
Update/physician notification At change of shift, patient's distal pulses are barely pulsatile in nature. At 0815, even more diminished. At my 9:15 assessment of pedals and post-tibials, the only sound I hear is venous. I called down to CT to see when my patient could go down and no order was present. I called Dr. Johnston to clarify and update. He expressed frustration that the order had never been entered. I enter the order, update the patient and call CT for a stat imaging. Provider is also updated that patient's heparin gtts has been off since 0400 due to > 139 reeds of aptt in the lab. Patient's vitals have not deviated since arrival to shift.
[2021-09-25] MEDS ORDERED: iohexol 350 MG/ML 50ML vial IV ONE (09:33)
[2021-09-25] MEDS ORDERED: iohexol 350MG/ML 100ml bottle IV ONE (09:33)
[2021-09-25] MEDS ORDERED: normal saline 1000ml 1,000 ML IV ONE (10:15)
[2021-09-25] MEDS: heparin 25,000 UNIT/250ml bag 250 ML IV SCH ×4 (10:15→19:24)
--- NOTE | 2021-09-25 10:19 | NUR ---
Telemed rounds. 1L Bolus ordered for post CTA given kidney values. Patient is resting. Addendum: 09/25/21 at 1023 by Chey Vogel RN Dept out of blue tubes. Lab called so that we may draw aptt. Pharmacy notified to send insulin up.
--- NOTE | 2021-09-25 11:30 | NUR ---
Dr. Johnston rounds and orders hourly PTT when patient is > 139 and as soon as it drops <100, restart at previous dose. He orders advance in her diet.
[2021-09-25] MEDS: HYDROmorphone inj. 0.5 MG/0.5 ML DISP.SYRIN IV PRN ×3 (13:44→23:51)
[2021-09-25] MEDS: insulin Lispro (HumaLOG) vial - multi-dose SQ SCH ×2 (14:41→19:58)
--- NOTE | 2021-09-25 15:36 | NUR ---
Lab calls again to notify of critically high aPTT of >139. Heparin will remain off and we will keep drawing hourly. Patient's insulin has arrived and she was treated after lunch. Patient had good appetite and pain is being controlled with PO and IV combo. Distal pulses continue to be quite difficult to dopple. Patient is asked if she would like assistance with hygiene/hair/etc., and patient refuses at this time.
--- NOTE | 2021-09-25 17:13 | NUR ---
Shift synopsis Patient's follow-up CTA of abd with runoffs this morning still revealed significant clotting issues to vascular system and aortic thrombus. CAMILO is evident with anuria and probably infarcted right kidney via scan. Telemedicine agri business agent orders 1L bolus after scan. Patient's pain is treated with IV and PO opiates. Patient can very slightly wiggle bilateral toes. Color remains erythremic with bilateral, lower limbs appearing taute/tight, edematous (non-pitting), and pedal and post-tibial pulses remain either absent via doppler or so faint, they sound venous. Surgeon aware. Patient has remained alert and oriented. She denies chest pain or abdominal pain. RIJ remains patent with blood withdrawal from all lumens. Patient has been extremely sensitive to Heparin gtts and changes today. We are now checking hourly until it evens-out/becomes consistently therapeutic. I am currently awaiting 1700 lab and will communicate most recent titration with the oncoming RN. WoundVac put out 300cc today with sanguinous, the serosanguineous quality. Bilateral, femoral WoundVac sites appear free of S&S of complications.
--- NOTE | 2021-09-25 19:49 | NUR ---
1929 Ptt drawn at 183, took 1 hour for results, received results at 1929, PTT 139, called to Dr Johnston, said to stop Heparin Gtt for 1 hour, obtain PTT and call with results. Heparin Gtt stopped at 1929 pending PTT at 2029 Addendum: 09/25/21 at 2116 by Eb Vogel RN 2029 PTT 101, Called Dr Johnston, restart Heparin at 1200 units/ hour (12 ml's hr). Recheck PTT in 4 hours (09/26/2021 0100). Maintain PTT 80-120 Addendum: 09/26/21 at 0540 by Eb Vogel RN 0115 PTT 100 continue rate at 1200 units (12 ml's/hr) Addendum: 09/26/21 at 0547 by Eb Vogel RN 0445 sent PTT resulted at 0545 result 121, called to Dr Johnston, said if no obvious signs of bleeding to keep the rate at 1200 continue to monitor.
[2021-09-25] MEDS: insulin glargine (Lantus) pen - multi-dose SQ SCH (20:35)
[2021-09-26] VITALS (24 sets, daily range): BP systolic 96–136; BP diastolic 51–81
--- NOTE | 2021-09-26 00:09 | NUR ---
The patient is a 41-year-old female, admitted 09/23/2021, day 3 of hospitalization, full code, NDA, No isolation, presents with history of complex peripheral vascular disease, CHF, diabetes, pulmonary embolism who came to the ER today with complaints of lower extremity pain, right greater than left for the past 2-3 days. The patient states that she had been seen by Emergency Room 2 weeks ago, diagnosed with pleurisy with chest discomfort, sent home. She is in bed for a number of days, subsequently developed lower extremity pain as outlined above, right greater than left. The patient developed some lower extremity discoloration with decreased sensation, presents to the ER for evaluation. A CTA was done, which revealed occluded infrarenal abdominal aorta,occluded iliacs, occluded common femoral SFA bilaterally with left reconstitution distally via collaterals and total occlusion of the right lower extremity. Surgical evaluation is now requested. On further questioning, the patient states she continues to smoke, has a history of meth use. COVID on 2 separate occasions, none in the last few months. Previous vascular interventions include right lower extremity bypass using the composite graft, bilateral femoral endarterectomies, bilateral tibial trunk endarterectomy with patch angioplasty, embolectomy, bilateral popliteal embolectomy, as well as bilateral calf fasciotomies. Currently, pt is afebrile, c/o pain 10/10 medicated with PO [place] 10 mg, and IV Dilaudid .5 mg Q 4 hours. AAO times 4, follows all commands, moves all extremities with great reservations moving BLLE due to pain and gross discomfort. NV checks Q 2 Hours via doppler. Noted doppler checks pulses are grossly diminished bilaterally, and both feet are cold. This is no change from the beginning of the shift when the day nurse reported off to me and we both checked the pulses via doppler. HR 88 SR, 103/68, weak radial pulses. EF 25%. Infusing NSS at 100 ml's/hr. Heparin gtt infusing via RIJ TLC, all ports f/p, dressing CDI, (note for Heparin Gtt is in a separate note). RR 16, PO 98%, RA. (pt placed on simple face mask at HS due to LAXMI). Breath sounds coarse, diminished, equal symmetrical, non labored. Hypoactive bowel sounds, large, round, obese, abdomen. Carb control/cardiac diet well tolerated. Pepcid for GI Prophylaxis. Glucose checks AC/HS increased to level 3 and started on Lantus at 12 units. Glucose 199. urine in [place] is grossly diminished to anuric, as reported on day shift. Pt has Bilateral groin wound vacs draining red/pink SS fluid. Skin, BLLE with multiple scab like sores. Skin BLLE is cold, pale and mildly ecchymotic. Continue to monitor and treat pain and discomfort. PTT closely monitored as discussed in previous documentation. Pt remains safe. Addendum: 09/26/21 at 0527 by Eb Smith - Traveler RN AM labs CA++ 6.4/ICA .96 Calcium gluconate [address] Ivy along with Bicarb for Co2 (BMP) 27 and ABG HCO3 48.3. Also placed consult for renal for failure Cr 2.49 and no urinary output for >12 hours, Pt has a [place]urtado. ICA .96, Dr Gonzalez was called ordered Calcium gluconate 1 gm. WBC's increased from day prior 14.1 to 17.8. Blood cultures drawn per RIJ-TLC and 1 set peripherally. Liver enzymes grossly elevated, pt remains on [place] will pass onto day shift to have that medication on hold or discontinued.
[2021-09-26 01:54] LABS: BASOPHILS % (AUTO) 0.2 % (0-1); EOSINOPHILS % (AUTO) 0 % (0-6); HEMATOCRIT 27.1 % (35.0-45.0); HEMOGLOBIN 8.6 g/dl (12.0-16.0); LYMPHOCYTES # (AUTO) 0.7 X10'3 (1.1-4.8); LYMPHOCYTES % (AUTO) 4.2 % (21-51); MEAN CORPUSCULAR HEMOGLOBIN 27.4 PG (27.0-31.0); MEAN CORPUSCULAR HGB CONC 31.8 g/dL (33.0-36.5); MEAN CORPUSCULAR VOLUME 86.3 FL (78-98); MEAN PLATELET VOLUME 9.3 FL (7.4-10.4); MONOCYTES # (AUTO) 1.9 X10'3 (0-0.9); MONOCYTES % (AUTO) 10.8 % (2-12); NEUTROPHILS # (AUTO) 15.1 X10'3 (1.8-7.7); NEUTROPHILS % (AUTO) 84.8 % (42-75); PLATELET COUNT 136 X10'3 (140-440); RED BLOOD COUNT 3.14 X10'6 (4.20-5.60); RED CELL DISTRIBUTION WIDTH 17.3 % (11.5-14.5); WHITE BLOOD COUNT 17.8 X10'3 (4.5-11.0)
[2021-09-26 02:27] LABS: ALANINE AMINOTRANSFERASE 486 U/L (12-78); ALBUMIN 1.6 G/DL (3.4-5.0); ALBUMIN/GLOBULIN RATIO 0.6 (1.1-1.5); ALKALINE PHOSPHATASE 66 IU/L (46-116); ANION GAP 11 (8-16); ASPARTATE AMINO TRANSFERASE 629 U/L (10-37); BILIRUBIN,TOTAL 1.8 MG/DL (0.1-1.0); BLOOD UREA NITROGEN 36 MG/DL (7-18); BUN/CREATININE RATIO 14.5 (6.6-38.0); CALCIUM 6.4 MG/DL (8.5-10.1); CHLORIDE 99 MMOL/L (99-107); CREATININE 2.49 MG/DL (0.40-0.90); GLUCOSE 164 MG/DL (70-104); MAGNESIUM 1.5 MG/DL (1.5-2.4); POTASSIUM 4.4 MMOL/L (3.5-5.1); SODIUM 132 MMOL/L (135-145); TOTAL CARBON DIOXIDE 21.9 MMOL/L (24-32); TOTAL PROTEIN 4.3 G/DL (6.4-8.2); eGFR 21 ML/MIN
[2021-09-26] MEDS ORDERED: calcium gluconate inj. 1 GM in normal saline 100ml IV soln 100 ML IV ONE (02:50)
[2021-09-26] MEDS ORDERED: CALCIUM GLUC 1gm/50ml NACL,iso 50 ML IV ONE (03:20)
[2021-09-26 03:26] LABS: OXYGEN SATURATION (MIXED VEN) 41.6 % (60-80); PO2 MIXED VENOUS (TEMP COR) 22.6 mmHg (35-46)
[2021-09-26 03:29] LABS: ABG BASE EXCESS -6.5 mmol/L (-2.0-2.0); ABG HCO3 19.4 mmol/L (22.0-26.0); ABG OXYGEN SATURATION 81.8 % (94-97); ABG PCO2 (T) 38.6 mmHg (32.0-45.0); ALLEN'S TEST POSITIVE; FCOHb 0.1 % (0.0-3.9); FMetHb 0.3 % (0.0-1.5); FO2Hb 81.5 % (94-97); TOTAL HEMOGLOBIN 9.8 G/dl (12.0-16.0)
[2021-09-26] MEDS: HYDROcodone/acetaminophen 10/325mg tab PO PRN (03:38)
[2021-09-26] MEDS: HYDROmorphone inj. 0.5 MG/0.5 ML DISP.SYRIN IV PRN ×2 (03:38→12:46)
[2021-09-26] MEDS ORDERED: sodium bicarbonate (8.4%) 1 mEq/ml syringe IV ONE (03:50)
[2021-09-26] MEDS ORDERED: CALCIUM GLUC 1gm/50ml NACL,iso 50 ML IV SCH (04:45)
[2021-09-26] MEDS: CALCIUM GLUC 1gm/50ml NACL,iso 50 ML IV SCH ×2 (05:32→05:35)
[2021-09-26] MEDS: famotidine/PF 10 mg/ml inj IV SCH ×2 (08:51→19:35)
[2021-09-26] MEDS: aspirin 81mg tab.chew PO SCH (08:51)
[2021-09-26] MEDS: insulin Lispro (HumaLOG) vial - multi-dose SQ SCH (08:56)
[2021-09-26] MEDS: acetaminophen 325mg tablet PO PRN ×2 (08:59→16:25)
--- NOTE | 2021-09-26 08:59 | NUR ---
Pt with 9/10 pain. unable to give dilauded or norco due to bradypnea (10/min) non pharm interventions incorporated: decrease stimuli, distraction, visualization, tylenol given. repositioned. dimmed lights. will monitor for effectiveness.
--- NOTE | 2021-09-26 10:01 | NUR ---
vascular gosia for arterial study. Addendum: 09/26/21 at 1213 by Marga Sevilla RN study completed.
--- NOTE | 2021-09-26 11:15 | NUR ---
Rounds with Dr. Gonzalez: discussed pt lack of pulsatile pedal pulses, vascular study being done, bradypnea, doc suggested antiphospholipid antibody may be present. ordered venous blood gas. d/c fluids at 100ml/hr. Dr. Alvarado wants pt seen by division operations manager anamika, even if that requires transfer to another location and requested this nurse talk to sally social work case manager regarding procedure for this. discussed pt pain management, that nurse unable to give narcotic analgesic pain med due to low RR. Addendum: 09/26/21 at 1233 by Marga Sevilla RN Sally paged and spoken to while on the floor. Per Sally she will work on Dr. Peraza request for hematology consult.
[2021-09-26 11:24] LABS: CREATINE KINASE 8911 U/L (26-192)
[2021-09-26 11:31] LABS: HEMOGLOBIN A1C 9.8 % (4.5-6.2)
--- NOTE | 2021-09-26 12:13 | NUR ---
Dr. Gonzalez called regarding pt cotting status. discussed pt possibly w9ith antiphospholipid antibody syndrome, that could be causing false ptt results. per Dr. Gonzalez, call the lab and find out if they have anti-10A tests to test a more true clotting time for those with lupus/antiphospholipid antibody syndrome. Per Lab, Heparin XA test available but must be sent out. 1-3 days turn around. [place] [facility] [place] [facility].
--- NOTE | 2021-09-26 12:38 | NUR ---
Called Dr. Johnston Discussed concerns with patient in severe pain and the concern with her low respiratory rate. Dr. Johnston stated the patient is going to be in severe pain and that we can go ahead a give the PRN. Dr. Johnston stated he would like Q6H CPK so we can assess the trend of this patient. In regard to the PTT of >139 he stated to hold the heparin gtt for one hour and then to reassess PTT then and call him with the results. Also spoke with Dr. Johnston regarding the concerns of the patient's pedal pulses. Dr. Johnston stated that he is more concerned with the blood flow to the groin at this time and we will wait and see what the Doppler report shows but that the patient is not a candidate for further surgery at this time.
[2021-09-26 14:43] LABS: CREATINE KINASE 9050 U/L (26-192)
--- NOTE | 2021-09-26 14:51 | NUR ---
Called Dr. Johnston with the updated PTT (135) and CK (9050). Dr. Johnston stated to restart the Heparin gtt at 1100 units/hr.
--- NOTE | 2021-09-26 17:43 | NUR ---
Patient does not want to take Dilaudid with her anymore due to feeling like it is making her stop breathing. Patient occasionally goes apneic while sleeping and she feels that she would rather stay awake and deal with the pain. Patient educated on this topic and still stated that she would not like to have Dilaudid.
--- NOTE | 2021-09-26 18:20 | NUR ---
Problems reprioritized. Patient report given, questions answered & plan of care reviewed with Giovanni EDWARDS. pt alert to voice, breathing even, semi folwers in bed, non pharm interventions employed to reduce pain with mild effectiveness. safety measures in place.
[2021-09-26] MEDS: insulin glargine (Lantus) pen - multi-dose SQ SCH (21:00)
--- NOTE | 2021-09-26 21:03 | NUR ---
2100 pt is not eating, glucose at 2099 117, no coverage given. Held Lantus at this time due to not eating. BMP glucose in AM (09/26/2021) was 164. Addendum: 09/26/21 at 2154 by Eb Vogel RN 2099 PTT 139, Per Dr Johnston, hold Heparin for 1 hour and restart at 1000 units/hr (10ml's/hr). informed him of CK 7736. Addendum: 09/26/21 at 2253 by Eb Vogel RN 2247 heparin gtt restarted at 1000 units/hr (10ml's/hr). Addendum: 09/27/21 at 0353 by Eb Vogel RN 0300 PTT resulted at 0350 >139, notified Dr Johnston, hold heparin for 1 hour, decrease by 100 units. Restart at rate 900 units (9ml/hr).
[2021-09-26 21:20] LABS: CREATINE KINASE 7736 U/L (26-192)
[2021-09-26] MEDS: heparin 25,000 UNIT/250ml bag 250 ML IV SCH (21:35)
[2021-09-27] VITALS (23 sets, daily range): BP systolic 93–133; BP diastolic 51–92
[2021-09-27 01:16] LABS: EOSINOPHILS % (AUTO) 0.1 % (0-6); HEMOGLOBIN 7.6 g/dl (12.0-16.0); LYMPHOCYTES # (AUTO) 0.6 X10'3 (1.1-4.8); MEAN CORPUSCULAR HEMOGLOBIN 27.6 PG (27.0-31.0); RED BLOOD COUNT 2.76 X10'6 (4.20-5.60); WHITE BLOOD COUNT 6.8 X10'3 (4.5-11.0)
[2021-09-27 01:17] LABS: BASOPHILS % (AUTO) 0.4 % (0-1); HEMATOCRIT 23.5 % (35.0-45.0); LYMPHOCYTES % (AUTO) 8.3 % (21-51); MEAN CORPUSCULAR HGB CONC 32.4 g/dL (33.0-36.5); MEAN CORPUSCULAR VOLUME 85.2 FL (78-98); MEAN PLATELET VOLUME 8.8 FL (7.4-10.4); MONOCYTES # (AUTO) 1.2 X10'3 (0-0.9); MONOCYTES % (AUTO) 18.2 % (2-12); PLATELET COUNT 114 X10'3 (140-440); RED CELL DISTRIBUTION WIDTH 17.8 % (11.5-14.5)
--- NOTE | 2021-09-27 01:38 | NUR ---
41-year-old female, admitted 09/23/2021, day 4 of hospitalization, full code, NDA, No isolation, presents with history of complex peripheral vascular disease, CHF, diabetes, pulmonary embolism who came to the ER 09/23/2021 with complaints of lower extremity pain, right greater than left for the past 2-3 days. The patient states that she had been seen by Emergency Room 2 weeks ago, diagnosed with pleurisy with chest discomfort, sent home. She has been in bed for a number of days, subsequently developed lower extremity pain as outlined above, right greater than left. The patient developed some lower extremity discoloration with decreased sensation, presents to the ER for evaluation. A CTA was done, which revealed occluded infrarenal abdominal aorta,occluded iliacs, occluded common femoral SFA bilaterally with left reconstitution distally via collaterals and total occlusion of the right lower extremity. Surgical evaluation is now requested. On further questioning, the patient states she continues to smoke, has a history of meth use. COVID on 2 separate occasions, none in the last few months. Previous vascular interventions include right lower extremity bypass using the composite graft, bilateral femoral endarterectomies, bilateral tibial trunk endarterectomy with patch angioplasty, embolectomy, bilateral popliteal embolectomy, as well as bilateral calf fasciotomies. Currently, pt is afebrile, continues to c/o pain 10/10, pt is refusing any pain medication, narcotic and non narcotic. AAO times 4, follows all commands, lethargic at times but when aroused answers appropriately. Moves all extremities with great reservations moving BLLE due to pain and gross discomfort. Noted doppler checks pulses are grossly diminished bilaterally, and both feet are cold. This is no change from previous assessment . HR 88, noted SR with BBB, Biphasic P-Waves, and at times 1 degree AVB. BP 119/61, weak radial pulses. EF 20-25%. CPK peak at 9050 trending 7736. Infusing Heparin gtt infusing via RIJ TLC, all ports f/p, dressing CDI, (note for Heparin Gtt is in a separate note). RR 16, PO 98%, 3L NC. Breath sounds coarse, diminished, equal symmetrical, non labored. Hypoactive bowel sounds, large, more distended and rounded then previous day. Carb control/cardiac diet, pt did not eat, poor PO intake today. Pepcid for GI Prophylaxis. Glucose checks AC/HS increased to level 3. Pt's glucose was 117, held coverage and Lantus . Urine OP via Hurtado is grossly diminished to anuric state, as previously, however, pt will put out 10 ml's every several hours. Pt has Bilateral groin wound vacs draining red/pink SS fluid. Skin, BLLE with multiple scab like sores. Skin BLLE is cold, pale and mildly ecchymotic. Continue to monitor pain and discomfort. PTT closely monitored as discussed in previous documentation. Pending transfer to outside facility for higher level of care. WBC's 6.8 Hgb 7.6 . Pending PTT and CPK. Keeping Dr Johnston abreast with events as they unfold.Pt remains safe. Addendum: 09/27/21 at 0456 by Eb Vogel RN 0430 Dr Gonzalez rounded on patient, addressed Calcium level, Calcium gluconate 1 gm IV ordered and given. Addendum: 09/27/21 at 0500 by Eb Vogel RN due to large taut abdomen I sent a SUAD Diaz pending results
[2021-09-27 01:48] LABS: CHLORIDE 99 MMOL/L (99-107); POTASSIUM 4.5 MMOL/L (3.5-5.1); SODIUM 132 MMOL/L (135-145)
[2021-09-27 01:56] LABS: ANION GAP 12 (8-16); TOTAL CARBON DIOXIDE 20.8 MMOL/L (24-32)
[2021-09-27 02:19] LABS: ALBUMIN 1.6 G/DL (3.4-5.0); BLOOD UREA NITROGEN 44 MG/DL (7-18); BUN/CREATININE RATIO 14.1 (6.6-38.0); CALCIUM 6.8 MG/DL (8.5-10.1); CREATININE 3.13 MG/DL (0.40-0.90); GLUCOSE 135 MG/DL (70-104); MAGNESIUM 1.5 MG/DL (1.5-2.4); eGFR 16 ML/MIN
[2021-09-27 02:20] LABS: CREATINE KINASE 7028 U/L (26-192)
[2021-09-27 02:54] LABS: ANISOCYTOSIS 1+; BURR CELLS 1+; MICROCYTOSIS 1+; NUCLEATED RED BLOOD CELLS 1 /100WBC (0-0); PLATELET ESTIMATE DECREASED; POLYCHROMASIA 1+; TOTAL CELLS COUNTED 100
[2021-09-27 03:56] LABS: ABG BASE EXCESS -5.4 mmol/L (-2.0-2.0); ABG HCO3 19.5 mmol/L (22.0-26.0); ABG PCO2 (T) 33.9 mmHg (32.0-45.0); ALLEN'S TEST POSITIVE; FCOHb 0.6 % (0.0-3.9); FMetHb 0.1 % (0.0-1.5); FO2Hb 93.3 % (94-97); PATIENT TEMPERATURE 36.1; TOTAL HEMOGLOBIN 8.8 G/dl (12.0-16.0)
[2021-09-27] MEDS: HYDROmorphone inj. 0.5 MG/0.5 ML DISP.SYRIN IV PRN ×4 (04:49→16:30)
[2021-09-27] MEDS: CALCIUM GLUC 1gm/50ml NACL,iso 50 ML IV SCH (04:50)
[2021-09-27] MEDS: famotidine/PF 10 mg/ml inj IV SCH (08:10)
[2021-09-27] MEDS: aspirin 81mg tab.chew PO SCH (08:10)
--- NOTE | 2021-09-27 12:24 | NUR ---
DM Consult: Pt hx T2DM A1C 9.8% w/ home Lantus 10 units HS and 6 units Insulin Lispro TIDWM per EMR. A1C down from 10.4 08/17/20 though has been elevated around 10 since 2019 per EMR. Pt also hx CHF, PVD, current smoker, and meth user per MD note. Pt s/p aortic/bilateral iliac/common femoral thrombectomies, and bilateral RECOVERY AGENT endarterectomy per EMR. Pt seen by MORENO as refusing carb controlled meals post-op. Pt reports no appetite at this time though is agreeable to orange at breakfast today as well as strawberry Paulino smoothie BIDBD given bilateral groin surgical wounds w/ vacs post-op. MD notified of Paulino recs. LBM 09/27 moderate first BM this admit per EMR. Pt would benefit from DM ed once more appropriate prior to discharge this admit. Will continue to monitor. Rec: 1. continue carb controlled diet 2. [place] Paulino smoothie BIDBD for wounds; pending MD verification in EMR 3. Encourage PO intake meals/ONS 4. MVI for wound healing needs 5. routine bowel care 6. weekly wts 7. DM education once more appropriate prior to discharge; A1C 9.8% hx T2DM Addendum: 09/27/21 at [address] Amended: Links added.
[2021-09-27] MEDS: ondansetron/PF 4mg/2ml inj IV PRN (12:28)
[2021-09-27 12:32] LABS: CREATINE KINASE 5480 U/L (26-192)
[2021-09-27] MEDS: apixaban 5mg tablet PO SCH ×2 (14:57→21:46)
[2021-09-27 16:17] LABS: TOTAL PROTEIN,URINE RANDOM 239.8 MG/DL
[2021-09-27] MEDS: JUVEN Smoothie Arginine/Glut./Ca2+Bmb (Juven 19.3pkt) 240ml cup PO SCH (17:30)
[2021-09-27 17:39] LABS: CREATINE KINASE 5042 U/L (26-192)
[2021-09-27] MEDS ORDERED: naloxone 0.4 mg/ml inj IV PRN (18:45)
[2021-09-27] MEDS ORDERED: normal saline 1000ml 1,000 ML IV SCH (18:45)
[2021-09-27] MEDS ORDERED: HYDROmorph./NS 0.2 mg/ml CADD 100 ML IV SCH (19:00)
[2021-09-27] MEDS: insulin glargine (Lantus) pen - multi-dose SQ SCH (21:00)
[2021-09-27] MEDS: HYDROmorph./NS 0.2 mg/ml CADD 100 ML IV SCH ×2 (21:08→23:00)
[2021-09-27] MEDS ORDERED: HYDROmorphone (Dilaudid)/NS 0.2 mg/ml 100ml CADD ONE (21:08)
[2021-09-27 21:16] LABS: CLARITY,URINE CLOUDY (Clear); COLOR,URINE YELLOW (Yellow); GLUCOSE, URINE 100 mg/dl (Neg); KETONES,URINE TRACE mg/dl (Neg); LEUKOCYTE ESTERASE ,URINE NEGATIVE (Neg); NITRITES, URINE NEGATIVE (Neg); OCCULT BLOOD,URINE LARGE (Neg); PROTEIN,URINE 100 mg/dl (Neg); UROBILINOGEN,URINE 0.2 E.U/dL (0.2-1.0)
[2021-09-27 21:21] LABS: UA COLLECTION TYPE NON-SPECIFIED
[2021-09-27 21:35] LABS: MUCUS STRANDS FEW /LPF (Neg); SQUAMOUS EPITHELIAL CELL,UR FEW /LPF (FEW)
[2021-09-27 21:36] LABS: AMORPHOUS URATES 3+; TRANSITIONAL EPI CELLS,URINE FEW /HPF
[2021-09-27 21:39] LABS: BACTERIA,URINE 2+ /HPF (Neg)
[2021-09-27 21:40] LABS: FINE GRANULAR CAST 0-3 /LPF (NEGATIVE)
[2021-09-27 22:28] LABS: CREATINE KINASE 5147 U/L (26-192)
[2021-09-27 23:15] LABS: UA EOSINOPHILS NO EOS /HPF
[2021-09-28] VITALS (24 sets, daily range): BP systolic 100–142; BP diastolic 51–87
--- NOTE | 2021-09-28 00:17 | NUR ---
41-year-old female, admitted 09/23/2021, day 4 of hospitalization, full code, NDA, No isolation, presents with history of complex peripheral vascular disease, CHF, diabetes, pulmonary embolism who came to the ER 09/23/2021 with complaints of lower extremity pain, right greater than left for the past 2-3 days. The patient states that she had been seen by Emergency Room 2 weeks ago, diagnosed with pleurisy with chest discomfort, sent home. She has been in bed for a number of days, subsequently developed lower extremity pain as outlined above, right greater than left. The patient developed some lower extremity discoloration with decreased sensation, presents to the ER for evaluation. A CTA was done, which revealed occluded infrarenal abdominal aorta,occluded iliacs, occluded common femoral SFA bilaterally with left reconstitution distally via collaterals and total occlusion of the right lower extremity. Surgical evaluation is now requested. On further questioning, the patient states she continues to smoke, has a history of meth use. COVID on 2 separate occasions, none in the last few months. Previous vascular interventions include right lower extremity bypass using the composite graft, bilateral femoral endarterectomies, bilateral tibial trunk endarterectomy with patch angioplasty, embolectomy, bilateral popliteal embolectomy, as well as bilateral calf fasciotomies. Currently, pt is afebrile, continues to c/o pain 10/10, Pt started on Dilaudid INTERLINE CLERK: Basal .2, demand .2, lockout 10 minutes. INTERLINE CLERK order/documentation/monitoring in accordance with facility policies and procedures. AAO times 4, follows all commands, lethargic at times but when aroused answers appropriately. Moves all extremities with great reservations moving BLLE due to pain and gross discomfort, both feet are cold and discolored. This is no change from previous assessment . HR 93, noted SR with BBB, Biphasic P-Waves, and at times 1 degree AVB. BP 118/69, weak radial pulses. EF 20-25%. Continue to monitor CPK. NSS at 20 ml's/hr infusing via RIJ TLC, all ports f/p, dressing CDI. RR 16, PO 99%, 3L NC with continuos ETCO2 monitoring due to Dilaudid INTERLINE CLERK . Breath sounds coarse, diminished, equal symmetrical, non labored. Hypoactive bowel sounds, large, more distended and rounded then previous day. Carb control/cardiac diet, pt did not eat, poor PO intake today. Pepcid for GI Prophylaxis. Glucose checks AC/HS increased to level 3. Pt's glucose was 111, held coverage and Lantus. CT C/A/P showed no significant findings other than was ws presented previously. Urine OP via Hurtado is grossly diminished 0-15 ml's/hr. urine is brown. Pt has Bilateral groin wound vacs draining red/pink SS fluid. Skin, BLLE with multiple scaring from previous surgeries. Skin BLLE is cold, pale and mildly ecchymotic. Noted DTI on both heels. Continue to monitor pain and discomfort. Pending transfer to outside facility for higher level of care. Pt remains safe.
[2021-09-28] MEDS: HYDROmorph./NS 0.2 mg/ml CADD 100 ML IV SCH ×12 (01:00→23:00)
[2021-09-28 03:54] LABS: BASOPHILS % (AUTO) 0.1 % (0-1); HEMOGLOBIN 7.6 g/dl (12.0-16.0); MONOCYTES # (AUTO) 2.3 X10'3 (0-0.9); NEUTROPHILS # (AUTO) 8.6 X10'3 (1.8-7.7)
[2021-09-28 03:56] LABS: EOSINOPHILS % (AUTO) 0.2 % (0-6); HEMATOCRIT 23.7 % (35.0-45.0); LYMPHOCYTES # (AUTO) 0.7 X10'3 (1.1-4.8); LYMPHOCYTES % (AUTO) 5.9 % (21-51); MEAN CORPUSCULAR HEMOGLOBIN 27.3 PG (27.0-31.0); MEAN CORPUSCULAR HGB CONC 32.2 g/dL (33.0-36.5); MEAN CORPUSCULAR VOLUME 84.8 FL (78-98); MEAN PLATELET VOLUME 8.9 FL (7.4-10.4); MONOCYTES % (AUTO) 19.6 % (2-12); NEUTROPHILS % (AUTO) 74.2 % (42-75); PLATELET COUNT 137 X10'3 (140-440); WHITE BLOOD COUNT 11.6 X10'3 (4.5-11.0)
[2021-09-28 04:31] LABS: ALBUMIN 1.5 G/DL (3.4-5.0); ANION GAP 14 (8-16); BLOOD UREA NITROGEN 52 MG/DL (7-18); BUN/CREATININE RATIO 14.5 (6.6-38.0); CALCIUM 6.9 MG/DL (8.5-10.1); CHLORIDE 98 MMOL/L (99-107); CREATINE KINASE 4883 U/L (26-192); CREATININE 3.59 MG/DL (0.40-0.90); GLUCOSE 109 MG/DL (70-104); MAGNESIUM 1.6 MG/DL (1.5-2.4); POTASSIUM 4.9 MMOL/L (3.5-5.1); SODIUM 134 MMOL/L (135-145); TOTAL CARBON DIOXIDE 21.6 MMOL/L (24-32); eGFR 14 ML/MIN
[2021-09-28] MEDS: JUVEN Smoothie Arginine/Glut./Ca2+Bmb (Juven 19.3pkt) 240ml cup PO SCH ×2 (07:30→17:30)
[2021-09-28] MEDS ORDERED: HYDROmorphone (Dilaudid)/NS 0.2 mg/ml 100ml CADD ONE (08:02)
[2021-09-28] MEDS: aspirin 81mg tab.chew PO SCH (09:11)
[2021-09-28] MEDS: apixaban 5mg tablet PO SCH ×2 (09:11→19:30)
[2021-09-28] MEDS: famotidine/PF 10 mg/ml inj IV SCH (09:11)
[2021-09-28 10:37] LABS: CREATINE KINASE 4434 U/L (26-192)
[2021-09-28] MEDS: carVEDilol 3.125mg tablet PO SCH (19:30)
[2021-09-28] MEDS: insulin glargine (Lantus) pen - multi-dose SQ SCH (21:00)
[2021-09-29] VITALS (23 sets, daily range): BP systolic 99–141; BP diastolic 53–79
[2021-09-29] MEDS: HYDROmorph./NS 0.2 mg/ml CADD 100 ML IV SCH ×12 (01:00→21:54)
[2021-09-29 02:37] LABS: MEAN CORPUSCULAR HGB CONC 31.3 g/dL (33.0-36.5)
[2021-09-29 02:38] LABS: BASOPHILS % (AUTO) 0.1 % (0-1); EOSINOPHILS # (AUTO) 0.1 X10'3 (0-0.9); EOSINOPHILS % (AUTO) 0.3 % (0-6); HEMATOCRIT 22.9 % (35.0-45.0); HEMOGLOBIN 7.2 g/dl (12.0-16.0); LYMPHOCYTES % (AUTO) 4.7 % (21-51); MEAN CORPUSCULAR HEMOGLOBIN 26.4 PG (27.0-31.0); MEAN CORPUSCULAR VOLUME 84.5 FL (78-98); MEAN PLATELET VOLUME 8.8 FL (7.4-10.4); MONOCYTES % (AUTO) 14.5 % (2-12); NEUTROPHILS # (AUTO) 16.6 X10'3 (1.8-7.7); NEUTROPHILS % (AUTO) 80.4 % (42-75); PLATELET COUNT 177 X10'3 (140-440); RED BLOOD COUNT 2.71 X10'6 (4.20-5.60); RED CELL DISTRIBUTION WIDTH 18.4 % (11.5-14.5); WHITE BLOOD COUNT 20.7 X10'3 (4.5-11.0)
[2021-09-29 02:47] LABS: ANION GAP 14 (8-16); CHLORIDE 98 MMOL/L (99-107); POTASSIUM 4.7 MMOL/L (3.5-5.1); SODIUM 132 MMOL/L (135-145); TOTAL CARBON DIOXIDE 19.8 MMOL/L (24-32)
[2021-09-29 03:03] LABS: ALANINE AMINOTRANSFERASE 61 U/L (12-78); ALBUMIN 1.5 G/DL (3.4-5.0); ALBUMIN/GLOBULIN RATIO 0.5 (1.1-1.5); ALKALINE PHOSPHATASE 158 IU/L (46-116); ASPARTATE AMINO TRANSFERASE 229 U/L (10-37); BLOOD UREA NITROGEN 59 MG/DL (7-18); BUN/CREATININE RATIO 15.9 (6.6-38.0); CALCIUM 6.8 MG/DL (8.5-10.1); GLUCOSE 158 MG/DL (70-104); MAGNESIUM 1.7 MG/DL (1.5-2.4); PHOSPHORUS 5.7 MG/DL (2.3-4.5); TOTAL PROTEIN 4.5 G/DL (6.4-8.2); eGFR 13 ML/MIN
[2021-09-29 03:38] LABS: TOTAL CELLS COUNTED 100
[2021-09-29 03:39] LABS: PLATELET ESTIMATE NORMAL
[2021-09-29 03:40] LABS: ANISOCYTOSIS 2+; BURR CELLS 1+; ELLIPTOCYTES FEW; MICROCYTOSIS FEW; POLYCHROMASIA 1+
[2021-09-29 03:41] LABS: NUCLEATED RED BLOOD CELLS 1 /100WBC (0-0)
--- NOTE | 2021-09-29 06:06 | NUR ---
Problems reprioritized. Patient report given, questions answered & plan of care reviewed with GRACE Flores
--- NOTE | 2021-09-29 07:30 | NUR ---
Spoke with GRACE Onofre from the [facility] transfer center. Stated that she needed to speak with case management regarding imaging for the doctors to review for potential transfer. Will notify case management to let them know and provide them with the umber she gave me.
[2021-09-29] MEDS: famotidine/PF 10 mg/ml inj IV SCH (07:47)
[2021-09-29] MEDS: apixaban 5mg tablet PO SCH ×2 (07:47→19:15)
[2021-09-29] MEDS: carVEDilol 3.125mg tablet PO SCH ×2 (07:47→19:15)
[2021-09-29] MEDS: lisinopril 2.5mg tablet PO SCH (07:48)
[2021-09-29] MEDS: aspirin 81mg tab.chew PO SCH (07:48)
[2021-09-29] MEDS: JUVEN Smoothie Arginine/Glut./Ca2+Bmb (Juven 19.3pkt) 240ml cup PO SCH ×2 (07:48→17:32)
[2021-09-29] MEDS: normal saline 1000ml 1,000 ML IV SCH ×2 (10:46→23:30)
[2021-09-29] MEDS: insulin Lispro (HumaLOG) vial - multi-dose SQ SCH (20:02)
[2021-09-29] MEDS: insulin glargine (Lantus) pen - multi-dose SQ SCH (20:03)
[2021-09-29] MEDS ORDERED: HYDROmorphone (Dilaudid)/NS 0.2 mg/ml 100ml CADD ONE (21:54)
[2021-09-29] MEDS: CADD PCA waste documentation MC PRN (21:56)
[2021-09-30] VITALS (22 sets, daily range): BP systolic 101–120; BP diastolic 52–77
[2021-09-30] MEDS: HYDROmorph./NS 0.2 mg/ml CADD 100 ML IV SCH ×12 (01:00→22:59)
[2021-09-30] MEDS: insulin Lispro (HumaLOG) vial - multi-dose SQ SCH ×4 (01:26→21:02)
[2021-09-30 02:33] LABS: BASOPHILS % (AUTO) 0.1 % (0-1); EOSINOPHILS # (AUTO) 0.2 X10'3 (0-0.9); HEMATOCRIT 22.5 % (35.0-45.0); HEMOGLOBIN 7.1 g/dl (12.0-16.0); LYMPHOCYTES # (AUTO) 0.9 X10'3 (1.1-4.8); MEAN CORPUSCULAR HGB CONC 31.6 g/dL (33.0-36.5); PLATELET COUNT 185 X10'3 (140-440)
[2021-09-30 02:35] LABS: EOSINOPHILS % (AUTO) 0.8 % (0-6); LYMPHOCYTES % (AUTO) 2.9 % (21-51); MEAN CORPUSCULAR HEMOGLOBIN 26.6 PG (27.0-31.0); MEAN CORPUSCULAR VOLUME 84.2 FL (78-98); MEAN PLATELET VOLUME 8.6 FL (7.4-10.4); MONOCYTES # (AUTO) 3.7 X10'3 (0-0.9); MONOCYTES % (AUTO) 11.8 % (2-12); NEUTROPHILS # (AUTO) 26.2 X10'3 (1.8-7.7); NEUTROPHILS % (AUTO) 84.4 % (42-75); RED BLOOD COUNT 2.68 X10'6 (4.20-5.60); RED CELL DISTRIBUTION WIDTH 17.8 % (11.5-14.5)
[2021-09-30 02:46] LABS: WHITE BLOOD COUNT 31.1 X10'3 (4.5-11.0)
[2021-09-30 02:57] LABS: ALANINE AMINOTRANSFERASE 61 U/L (12-78); ALBUMIN 1.3 G/DL (3.4-5.0); ALBUMIN/GLOBULIN RATIO 0.4 (1.1-1.5); ALKALINE PHOSPHATASE 205 IU/L (46-116); ANION GAP 12 (8-16); ASPARTATE AMINO TRANSFERASE 146 U/L (10-37); BILIRUBIN,TOTAL 1.4 MG/DL (0.1-1.0); BLOOD UREA NITROGEN 63 MG/DL (7-18); BUN/CREATININE RATIO 19.6 (6.6-38.0); CALCIUM 7.1 MG/DL (8.5-10.1); CHLORIDE 102 MMOL/L (99-107); CREATININE 3.22 MG/DL (0.40-0.90); GLUCOSE 152 MG/DL (70-104); MAGNESIUM 1.7 MG/DL (1.5-2.4); POTASSIUM 4.5 MMOL/L (3.5-5.1); SODIUM 135 MMOL/L (135-145); TOTAL CARBON DIOXIDE 21.5 MMOL/L (24-32); TOTAL PROTEIN 4.7 G/DL (6.4-8.2); eGFR 16 ML/MIN
[2021-09-30 03:41] LABS: TOTAL CELLS COUNTED 100
[2021-09-30 03:51] LABS: ANISOCYTOSIS 1+; ELLIPTOCYTES FEW; PLATELET ESTIMATE NORMAL; POLYCHROMASIA 1+
[2021-09-30 03:52] LABS: BURR CELLS 1+
[2021-09-30 03:53] LABS: MICROCYTOSIS FEW; NUCLEATED RED BLOOD CELLS 1 /100WBC (0-0)
[2021-09-30] MEDS: JUVEN Smoothie Arginine/Glut./Ca2+Bmb (Juven 19.3pkt) 240ml cup PO SCH ×2 (07:56→17:36)
[2021-09-30] MEDS: apixaban 5mg tablet PO SCH ×2 (08:08→19:59)
[2021-09-30] MEDS: lisinopril 2.5mg tablet PO SCH (08:08)
[2021-09-30] MEDS: carVEDilol 3.125mg tablet PO SCH ×2 (08:08→19:59)
[2021-09-30] MEDS: aspirin 81mg tab.chew PO SCH (08:08)
[2021-09-30] MEDS: normal saline 1000ml 1,000 ML IV SCH (12:04)
[2021-09-30] MEDS: lactose-reduced food (Ensure Enlive) - 237ml bottle PO SCH ×2 (13:00→17:36)
--- NOTE | 2021-09-30 13:29 | NUR ---
Reassessment: Pt continues w/ poor PO intake ~8% of carb controlled meals though pt PO of last two Paulino smoothie 100%. RD d/w RN recommendation for supplemental nutrition. RN stated, RN d/w pt need for supplemental nutrition and pt refused possibility of NG tube placement. Noted Ensure Enlive TIDWM now active in EMR. IF continued poor PO intake, pt could could benefit from nutrition support to help meet kcal/protein needs if pt agreeable. Pt could benefit from MVI to help w/ wound healing. Given pt poor PO intake, severe muscle weakness, and anasarca, pt meets minimum criteria for malnutrition. LBM 09/28, not receiving bowel care. Pt still not appropriate for DM ed at this time. Will continue to monitor. Recommendations: 1. Liberalize to regular diet given poor PO intake, encourage PO intake 2. [place] Paulino smoothie BIDBD for wound healing 3. Ensure Enlive TIDWM 4. IF continued poor PO intake, consider nutrition support 5. MVI for wound healing needs 6. routine bowel care 7. weekly scaled wts 8. DM education once more appropriate prior to discharge; A1C 9.8% hx T2DM Addendum: 09/30/21 at [address] Amended: Links added. Addendum: 09/30/21 at [address] I have reviewed and agree with note by Agile TesterGucci Santiago RD
[2021-09-30] MEDS: insulin glargine (Lantus) pen - multi-dose SQ SCH (21:04)
[2021-10-01] VITALS (27 sets, daily range): BP systolic 86–119; BP diastolic 51–71
[2021-10-01] MEDS: HYDROmorph./NS 0.2 mg/ml CADD 100 ML IV SCH ×11 (01:00→21:51)
[2021-10-01] MEDS: normal saline 1000ml 1,000 ML IV SCH (01:07)
[2021-10-01 04:05] LABS: BASOPHILS % (AUTO) 0.1 % (0-1); EOSINOPHILS # (AUTO) 0.2 X10'3 (0-0.9); EOSINOPHILS % (AUTO) 0.8 % (0-6); LYMPHOCYTES # (AUTO) 0.9 X10'3 (1.1-4.8)
[2021-10-01 04:07] LABS: LYMPHOCYTES % (AUTO) 3.4 % (21-51); MEAN CORPUSCULAR HEMOGLOBIN 26.6 PG (27.0-31.0); MEAN CORPUSCULAR HGB CONC 31.5 g/dL (33.0-36.5); MEAN CORPUSCULAR VOLUME 84.3 FL (78-98); MONOCYTES # (AUTO) 2.5 X10'3 (0-0.9); MONOCYTES % (AUTO) 9.1 % (2-12); NEUTROPHILS % (AUTO) 86.6 % (42-75); PLATELET COUNT 175 X10'3 (140-440); RED BLOOD COUNT 2.52 X10'6 (4.20-5.60); RED CELL DISTRIBUTION WIDTH 18.6 % (11.5-14.5)
[2021-10-01 04:17] LABS: HEMATOCRIT 21.2 % (35.0-45.0); HEMOGLOBIN 6.7 g/dl (12.0-16.0); WHITE BLOOD COUNT 27.7 X10'3 (4.5-11.0)
[2021-10-01 04:44] LABS: ALANINE AMINOTRANSFERASE 42 U/L (12-78); ALBUMIN 1.2 G/DL (3.4-5.0); ALBUMIN/GLOBULIN RATIO 0.4 (1.1-1.5); ALKALINE PHOSPHATASE 222 IU/L (46-116); ANION GAP 11 (8-16); ASPARTATE AMINO TRANSFERASE 99 U/L (10-37); BILIRUBIN,TOTAL 1.1 MG/DL (0.1-1.0); BLOOD UREA NITROGEN 59 MG/DL (7-18); BUN/CREATININE RATIO 22.4 (6.6-38.0); CALCIUM 7.3 MG/DL (8.5-10.1); CHLORIDE 104 MMOL/L (99-107); CREATININE 2.63 MG/DL (0.40-0.90); GLUCOSE 110 MG/DL (70-104); MAGNESIUM 1.7 MG/DL (1.5-2.4); POTASSIUM 4.3 MMOL/L (3.5-5.1); SODIUM 137 MMOL/L (135-145); TOTAL PROTEIN 4.6 G/DL (6.4-8.2); eGFR 20 ML/MIN
[2021-10-01 05:28] LABS: TOTAL CELLS COUNTED 100
[2021-10-01 05:29] LABS: ANISOCYTOSIS 2+; PLATELET ESTIMATE NORMAL
[2021-10-01 05:30] LABS: BURR CELLS 1+; ELLIPTOCYTES FEW; POLYCHROMASIA FEW
--- NOTE | 2021-10-01 06:30 | NUR ---
Report received from offgoing RN
[2021-10-01] MEDS: JUVEN Smoothie Arginine/Glut./Ca2+Bmb (Juven 19.3pkt) 240ml cup PO SCH ×2 (07:30→17:30)
[2021-10-01] MEDS: apixaban 5mg tablet PO SCH ×2 (08:00→20:41)
[2021-10-01] MEDS: lactose-reduced food (Ensure Enlive) - 237ml bottle PO SCH ×3 (08:00→18:00)
[2021-10-01] MEDS: lisinopril 2.5mg tablet PO SCH (08:00)
[2021-10-01] MEDS: carVEDilol 3.125mg tablet PO SCH ×2 (08:00→20:41)
[2021-10-01] MEDS ORDERED: famotidine/PF 10 mg/ml inj IV SCH (08:00)
[2021-10-01] MEDS: aspirin 81mg tab.chew PO SCH (08:30)
[2021-10-01] MEDS: insulin Lispro (HumaLOG) vial - multi-dose SQ SCH ×2 (13:36→21:50)
[2021-10-01 14:45] LABS: HEMATOCRIT 24.3 % (35.0-45.0); HEMOGLOBIN 7.6 g/dl (12.0-16.0); MEAN CORPUSCULAR HEMOGLOBIN 26.4 PG (27.0-31.0); MEAN CORPUSCULAR HGB CONC 31.2 g/dL (33.0-36.5); MEAN CORPUSCULAR VOLUME 84.7 FL (78-98); MEAN PLATELET VOLUME 9.1 FL (7.4-10.4); PLATELET COUNT 171 X10'3 (140-440); RED BLOOD COUNT 2.87 X10'6 (4.20-5.60)
[2021-10-01 14:47] LABS: WHITE BLOOD COUNT 26.7 X10'3 (4.5-11.0)
--- NOTE | 2021-10-01 18:14 | NUR ---
Report given to KRISTY EDWARDS
[2021-10-01] MEDS: insulin glargine (Lantus) pen - multi-dose SQ SCH (21:49)
[2021-10-02] VITALS (24 sets, daily range): BP systolic 87–113; BP diastolic 50–68
[2021-10-02] MEDS: HYDROmorph./NS 0.2 mg/ml CADD 100 ML IV SCH ×13 (01:00→23:00)
[2021-10-02 02:48] LABS: BASOPHILS % (AUTO) 0.1 % (0-1); EOSINOPHILS # (AUTO) 0.2 X10'3 (0-0.9); EOSINOPHILS % (AUTO) 0.6 % (0-6); HEMATOCRIT 24.5 % (35.0-45.0); HEMOGLOBIN 7.6 g/dl (12.0-16.0); LYMPHOCYTES # (AUTO) 1.1 X10'3 (1.1-4.8); MEAN CORPUSCULAR HEMOGLOBIN 26.1 PG (27.0-31.0); MEAN CORPUSCULAR VOLUME 84.2 FL (78-98); MONOCYTES # (AUTO) 1.9 X10'3 (0-0.9); MONOCYTES % (AUTO) 7.1 % (2-12); NEUTROPHILS # (AUTO) 23.4 X10'3 (1.8-7.7); NEUTROPHILS % (AUTO) 88.2 % (42-75); PLATELET COUNT 184 X10'3 (140-440); RED CELL DISTRIBUTION WIDTH 18.2 % (11.5-14.5)
[2021-10-02 02:53] LABS: WHITE BLOOD COUNT 26.5 X10'3 (4.5-11.0)
[2021-10-02 03:31] LABS: ALANINE AMINOTRANSFERASE 36 U/L (12-78); ALBUMIN 1.1 G/DL (3.4-5.0); ALBUMIN/GLOBULIN RATIO 0.3 (1.1-1.5); ALKALINE PHOSPHATASE 283 IU/L (46-116); ANION GAP 9 (8-16); ASPARTATE AMINO TRANSFERASE 79 U/L (10-37); BLOOD UREA NITROGEN 60 MG/DL (7-18); BUN/CREATININE RATIO 26.7 (6.6-38.0); CALCIUM 7.5 MG/DL (8.5-10.1); CHLORIDE 104 MMOL/L (99-107); CREATININE 2.25 MG/DL (0.40-0.90); GLUCOSE 169 MG/DL (70-104); MAGNESIUM 1.8 MG/DL (1.5-2.4); POTASSIUM 4.5 MMOL/L (3.5-5.1); SODIUM 135 MMOL/L (135-145); TOTAL CARBON DIOXIDE 22.2 MMOL/L (24-32); TOTAL PROTEIN 4.6 G/DL (6.4-8.2); eGFR 24 ML/MIN
[2021-10-02 04:26] LABS: TOTAL CELLS COUNTED 100
[2021-10-02 04:27] LABS: ANISOCYTOSIS 2+; PLATELET ESTIMATE NORMAL
[2021-10-02 04:28] LABS: BURR CELLS FEW; HYPOCHROMASIA 1+; POLYCHROMASIA FEW; TEAR DROP CELLS FEW
--- NOTE | 2021-10-02 06:30 | NUR ---
Patient in room ICU 2046. I have received report from Leigh Ann EDWARDS and had the opportunity to ask questions and assume patient care. Pt semi folwers in bed, body supported with pillows, heels protected in bruce boots, NS@20 to right IJ supporting dilauded CADD. respirations 10 per pt ari baseline. //2LPM: Spo2 1005. will consider weening off 02 today. chest rising and falling evenly. LS + bilaterally. pedal pulses absent per baseline. safety measures in place. no s/sx pain while pt laying still, though grimaces with movement.
--- NOTE | 2021-10-02 07:16 | NUR ---
Paged pharmacy for new CADD cartridge.
[2021-10-02] MEDS: JUVEN Smoothie Arginine/Glut./Ca2+Bmb (Juven 19.3pkt) 240ml cup PO SCH ×2 (07:30→17:58)
[2021-10-02] MEDS: apixaban 5mg tablet PO SCH ×2 (08:23→20:48)
[2021-10-02] MEDS: carVEDilol 3.125mg tablet PO SCH ×2 (08:23→20:48)
[2021-10-02] MEDS: aspirin 81mg tab.chew PO SCH (08:23)
[2021-10-02] MEDS: lactose-reduced food (Ensure Enlive) - 237ml bottle PO SCH ×4 (08:24→18:13)
[2021-10-02] MEDS: insulin Lispro (HumaLOG) vial - multi-dose SQ SCH ×3 (08:36→20:55)
--- NOTE | 2021-10-02 08:49 | NUR ---
Paged pharmacy for jose maria, Per pharmacy, dietary handles jose maria. Called and spoke with Buzz Business Continuity Manager. Per buzz, he will get in contact with the kitchen and have the Jose Maria smoothies sent out for next meal.
[2021-10-02] MEDS ORDERED: HYDROmorphone (Dilaudid)/NS 0.2 mg/ml 100ml CADD ONE (11:24)
[2021-10-02] MEDS: CADD PCA waste documentation MC PRN (11:25)
[2021-10-02] MEDS: famotidine 20mg tablet PO SCH (12:37)
--- NOTE | 2021-10-02 18:16 | NUR ---
Problems reprioritized. Patient report given, questions answered & plan of care reviewed with Leigh Ann EDWARDS. pt sitting up high fowlers in bed, picking at dinner. respiration ari at baseline @10. spo2 96%. chest rising and falling evenly. safety measures in place. CADD runing per order
[2021-10-02] MEDS: insulin glargine (Lantus) pen - multi-dose SQ SCH (20:52)
[2021-10-03] VITALS (24 sets, daily range): BP systolic 94–116; BP diastolic 55–67
[2021-10-03] MEDS: HYDROmorph./NS 0.2 mg/ml CADD 100 ML IV SCH ×12 (00:26→23:00)
[2021-10-03 03:11] LABS: BASOPHILS % (AUTO) 0.2 % (0-1); EOSINOPHILS # (AUTO) 0.2 X10'3 (0-0.9); EOSINOPHILS % (AUTO) 1.1 % (0-6); HEMATOCRIT 23.4 % (35.0-45.0); LYMPHOCYTES % (AUTO) 4.2 % (21-51); MEAN CORPUSCULAR HEMOGLOBIN 25.4 PG (27.0-31.0); MEAN CORPUSCULAR VOLUME 84.8 FL (78-98); MONOCYTES # (AUTO) 1.4 X10'3 (0-0.9); MONOCYTES % (AUTO) 6.3 % (2-12); NEUTROPHILS # (AUTO) 20.2 X10'3 (1.8-7.7); NEUTROPHILS % (AUTO) 88.2 % (42-75); PLATELET COUNT 223 X10'3 (140-440); RED BLOOD COUNT 2.76 X10'6 (4.20-5.60); RED CELL DISTRIBUTION WIDTH 18.1 % (11.5-14.5); WHITE BLOOD COUNT 22.9 X10'3 (4.5-11.0)
--- NOTE | 2021-10-03 03:32 | NUR ---
critical hgb of 7.[address] Soares, no new orders received.
[2021-10-03 03:37] LABS: ALANINE AMINOTRANSFERASE 45 U/L (12-78); ALBUMIN/GLOBULIN RATIO 0.3 (1.1-1.5); ALKALINE PHOSPHATASE 350 IU/L (46-116); ANION GAP 8 (8-16); ASPARTATE AMINO TRANSFERASE 79 U/L (10-37); BILIRUBIN,TOTAL 0.8 MG/DL (0.1-1.0); BLOOD UREA NITROGEN 55 MG/DL (7-18); BUN/CREATININE RATIO 29.7 (6.6-38.0); CALCIUM 7.7 MG/DL (8.5-10.1); CHLORIDE 104 MMOL/L (99-107); CREATININE 1.85 MG/DL (0.40-0.90); GLUCOSE 187 MG/DL (70-104); MAGNESIUM 1.8 MG/DL (1.5-2.4); POTASSIUM 4.9 MMOL/L (3.5-5.1); SODIUM 136 MMOL/L (135-145); TOTAL CARBON DIOXIDE 24.4 MMOL/L (24-32); TOTAL PROTEIN 4.4 G/DL (6.4-8.2); eGFR 30 ML/MIN
[2021-10-03 05:02] LABS: ANISOCYTOSIS 2+; PLATELET ESTIMATE NORMAL; TOTAL CELLS COUNTED 100
[2021-10-03 05:03] LABS: POLYCHROMASIA FEW
[2021-10-03 05:04] LABS: BURR CELLS FEW
--- NOTE | 2021-10-03 06:30 | NUR ---
Patient in room ICU 2046. I have received report from Leigh Ann EDWARDS and had the opportunity to ask questions and assume patient care. Pt semi folwers in bed, body supported with pillows, heels/feet protected in bruce boots, NS@20 to right IJ supporting dilauded CADD. CADD patent with adequate medication supply. battery sufficient. respirations 10 per pt ari baseline. spo2 99% RA. chest rising and falling evenly. LS + bilaterally. pedal pulses absent per baseline. safety measures in place. no s/sx pain while pt laying still, +s/s pain with movement. TECHNICAL ACCOUNT REPRESENTATIVE education completed. moderate understanding verbalized. Addendum: 10/03/21 at 0659 by Marga Sevilla RN f/c patent without dependent loops.
[2021-10-03] MEDS: JUVEN Smoothie Arginine/Glut./Ca2+Bmb (Juven 19.3pkt) 240ml cup PO SCH ×2 (07:55→17:51)
[2021-10-03] MEDS: aspirin 81mg tab.chew PO SCH (07:56)
[2021-10-03] MEDS: carVEDilol 3.125mg tablet PO SCH ×2 (07:56→20:23)
[2021-10-03] MEDS: famotidine 20mg tablet PO SCH (07:56)
[2021-10-03] MEDS: apixaban 5mg tablet PO SCH ×2 (07:56→20:23)
[2021-10-03 08:11] LABS: PHOSPHORUS 2.3 MG/DL (2.3-4.5)
[2021-10-03] MEDS: insulin Lispro (HumaLOG) vial - multi-dose SQ SCH ×2 (09:16→13:51)
--- NOTE | 2021-10-03 11:11 | NUR ---
Rounds with Dr. Felix & team discussed pt's hx and current health status and pt's lack of interest in daily activities, bradypnea at baseline, and discussed removal of IJ after PIV placed, as well as transfer to PCU floor (after ok from Dr. Johnston) and reduction in TEACHER VISUALLY IMPAIRED from 0.2mg/hr to 0.1mg/hr and to add Lexapro 10mg qday. Addendum: 10/03/21 at 1114 by Marga Sevilla RN asked dr. Felix about wound vacs still to bilat. centeno. Dr. Felix deferred to Dr. Johnston.
--- NOTE | 2021-10-03 11:36 | NUR ---
Reassessment: Pt PO intake improved from ~8% avg on 09/30 to ~23% avg 10/03 of carb controlled meals w/ mostly 100% of Ensure Enlive ONS and Paulino smoothies, meeting estimated nutritional needs. Noted pt refused possibility of NG tube for supplemental nutrition per RN. IF PO intake declines, pt could benefit from nutrition support to help meet kcal/protein needs if pt agreeable. Pt could benefit from MVI to help w/ wound healing. LBM 10/02, not receiving bowel care. Pt still not appropriate for DM ed at this time. Will continue to monitor. Recommendations: 1. Liberalize to regular diet given poor PO intake, encourage PO intake 2. [place] Paulino smoothie BIDBD for wound healing 3. Ensure Enlive TIDWM 4. IF PO intake declines, consider nutrition support 5. MVI for wound healing needs 6. routine bowel care 7. weekly scaled wts 8. DM education once more appropriate prior to discharge; A1C 9.8% hx T2DM Addendum: 10/03/21 at 1136 by Mirza Kat - Accounts Executive RD Amended: Links added. Addendum: 10/05/21 at [address] I have reviewed assessment by intern product marketing manager
[2021-10-03] MEDS: lactose-reduced food (Ensure Enlive) - 237ml bottle PO SCH ×2 (13:41→18:05)
[2021-10-03] MEDS: ESCITALOPRAM OXALATE 5 MG TABLET PO SCH (13:41)
--- NOTE | 2021-10-03 16:00 | NUR ---
Called Dr. Johnston to discuss provenas, transfer to PCU etc. new order: ok to remove provena wound vacs from bilat. groin. leave open to air ok to transfer to telemetry/PCU with tele.
--- NOTE | 2021-10-03 16:14 | NUR ---
Right internal jugular central line removed with the cannula tip intact. After removal pressure was applied to the insertion site until bleeding had stopped and was dressed with fresh gauze and a Tegaderm. Per Dr. Felix, the tip of the central line was cut off using sterile scissors and placed in a sterile cup, labeled and sent to lab for testing.
--- NOTE | 2021-10-03 18:08 | NUR ---
Problems reprioritized. Patient report given, questions answered & plan of care reviewed with Leigh Ann EDWARDS. Pt semi folwers sitting up in bed working on her dinner. spo2 99%on room air, chest rising and falling evenly. wound vac d/c'd per [place] order. no excessive drainage noted. needs anticipated and met. safety measures in place.
[2021-10-03] MEDS: insulin glargine (Lantus) pen - multi-dose SQ SCH (20:26)
[2021-10-04] VITALS (19 sets, daily range): BP systolic 93–140; BP diastolic 55–82
[2021-10-04] MEDS: HYDROmorph./NS 0.2 mg/ml CADD 100 ML IV SCH ×11 (01:00→23:00)
--- NOTE | 2021-10-04 06:45 | NUR ---
Patient in room ICU 2046. I have received report from Leigh Ann EDWARDS and had the opportunity to ask questions and assume patient care. Pt semi folwers in bed to the right, body supported with pillows, heels/feet protected in bruce boots, NS@20 to left 20G PIV: supporting dilauded CADD. CADD patent with adequate medication supply. battery sufficient. respirations 14 per pt ari baseline. spo2 99% RA. chest rising and falling evenly. LS + bilaterally. pedal pulses absent per baseline. safety measures in place. no s/sx pain while pt laying still. f/c patent without dependent loops.
[2021-10-04 07:33] LABS: BASOPHILS % (AUTO) 0.2 % (0-1); EOSINOPHILS # (AUTO) 0.2 X10'3 (0-0.9); EOSINOPHILS % (AUTO) 0.9 % (0-6); HEMATOCRIT 23.4 % (35.0-45.0); HEMOGLOBIN 7.2 g/dl (12.0-16.0); LYMPHOCYTES % (AUTO) 4.9 % (21-51); MEAN CORPUSCULAR HEMOGLOBIN 26.2 PG (27.0-31.0); MEAN CORPUSCULAR HGB CONC 30.8 g/dL (33.0-36.5); MEAN CORPUSCULAR VOLUME 85.3 FL (78-98); MEAN PLATELET VOLUME 8.8 FL (7.4-10.4); MONOCYTES # (AUTO) 1.3 X10'3 (0-0.9); MONOCYTES % (AUTO) 6.4 % (2-12); NEUTROPHILS # (AUTO) 18.1 X10'3 (1.8-7.7); NEUTROPHILS % (AUTO) 87.6 % (42-75); PLATELET COUNT 251 X10'3 (140-440); RED BLOOD COUNT 2.74 X10'6 (4.20-5.60); RED CELL DISTRIBUTION WIDTH 18.5 % (11.5-14.5); WHITE BLOOD COUNT 20.6 X10'3 (4.5-11.0)
[2021-10-04] MEDS: JUVEN Smoothie Arginine/Glut./Ca2+Bmb (Juven 19.3pkt) 240ml cup PO SCH ×2 (07:50→19:00)
[2021-10-04 07:58] LABS: ALANINE AMINOTRANSFERASE 42 U/L (12-78); ALBUMIN/GLOBULIN RATIO 0.3 (1.1-1.5); ALKALINE PHOSPHATASE 331 IU/L (46-116); ANION GAP 10 (8-16); ASPARTATE AMINO TRANSFERASE 58 U/L (10-37); BILIRUBIN,TOTAL 0.7 MG/DL (0.1-1.0); BLOOD UREA NITROGEN 50 MG/DL (7-18); BUN/CREATININE RATIO 34.5 (6.6-38.0); CALCIUM 7.8 MG/DL (8.5-10.1); CHLORIDE 103 MMOL/L (99-107); CREATININE 1.45 MG/DL (0.40-0.90); GLUCOSE 123 MG/DL (70-104); MAGNESIUM 1.8 MG/DL (1.5-2.4); POTASSIUM 5.2 MMOL/L (3.5-5.1); SODIUM 134 MMOL/L (135-145); TOTAL CARBON DIOXIDE 21.5 MMOL/L (24-32); TOTAL PROTEIN 4.6 G/DL (6.4-8.2); eGFR 40 ML/MIN
--- NOTE | 2021-10-04 09:21 | NUR ---
pt very labile, shoved tray table with meal on it at the nurse. nurse sternly explained that is not acceptable behavior and she will return in 15 mins when the pt's behavior has improved. Addendum: 10/04/21 at 1613 by Marga Sevilla RN upon entering room after above charted incident, pt apologetic, conceded that she was half asleep and did not meat to push the tray. pt tolerated a bath, cleansing, linen change and meds without further incident, and politely.
[2021-10-04] MEDS: carVEDilol 3.125mg tablet PO SCH ×2 (09:31→22:24)
[2021-10-04] MEDS: apixaban 5mg tablet PO SCH ×2 (09:32→22:24)
[2021-10-04] MEDS: ESCITALOPRAM OXALATE 5 MG TABLET PO SCH (09:32)
[2021-10-04] MEDS: aspirin 81mg tab.chew PO SCH (09:32)
[2021-10-04] MEDS: lactose-reduced food (Ensure Enlive) - 237ml bottle PO SCH ×4 (09:32→19:00)
[2021-10-04] MEDS: insulin Lispro (HumaLOG) vial - multi-dose SQ SCH ×2 (09:37→15:20)
--- NOTE | 2021-10-04 16:13 | NUR ---
Problems reprioritized. Patient report given, questions answered & plan of care reviewed with Lori EDWARDS ACCE nurse in preparation for transfer to ACCE unit room .
--- NOTE | 2021-10-04 17:00 | NUR ---
pt transferred from icu at 1700. Settled patient and obtained vital signs. no s/s of distress. pain is being controlled by a CADD pump. 2 RN skin check performed and oozing wounds address. Changed pt and put on warm blankets. Performed a head to toe assessment. vss. will endorse to noc rn.
[2021-10-04] MEDS: insulin glargine (Lantus) pen - multi-dose SQ SCH (22:29)
[2021-10-05] VITALS (7 sets, daily range): BP systolic 98–130; BP diastolic 60–69
[2021-10-05] MEDS: HYDROmorph./NS 0.2 mg/ml CADD 100 ML IV SCH ×10 (01:00→23:00)
--- NOTE | 2021-10-05 06:38 | NUR ---
Patient in room MED 307. I have received report from GRACE PISANO, and had the opportunity to ask questions and assume patient care.
[2021-10-05] MEDS: JUVEN Smoothie Arginine/Glut./Ca2+Bmb (Juven 19.3pkt) 240ml cup PO SCH ×2 (07:30→17:30)
[2021-10-05] MEDS: lactose-reduced food (Ensure Enlive) - 237ml bottle PO SCH ×3 (08:00→18:00)
[2021-10-05] MEDS: aspirin 81mg tab.chew PO SCH (08:11)
[2021-10-05] MEDS: carVEDilol 3.125mg tablet PO SCH ×2 (08:11→19:50)
[2021-10-05] MEDS: famotidine 20mg tablet PO SCH (08:11)
[2021-10-05] MEDS: apixaban 5mg tablet PO SCH ×2 (08:12→19:50)
[2021-10-05] MEDS: ESCITALOPRAM OXALATE 5 MG TABLET PO SCH (08:12)
[2021-10-05 10:21] LABS: BASOPHILS % (AUTO) 0.2 % (0-1); EOSINOPHILS # (AUTO) 0.2 X10'3 (0-0.9); EOSINOPHILS % (AUTO) 0.8 % (0-6); HEMATOCRIT 24.5 % (35.0-45.0); HEMOGLOBIN 7.5 g/dl (12.0-16.0); LYMPHOCYTES % (AUTO) 5.1 % (21-51); MEAN CORPUSCULAR HEMOGLOBIN 26.2 PG (27.0-31.0); MEAN CORPUSCULAR HGB CONC 30.8 g/dL (33.0-36.5); MEAN PLATELET VOLUME 8.9 FL (7.4-10.4); MONOCYTES # (AUTO) 1.2 X10'3 (0-0.9); MONOCYTES % (AUTO) 6.4 % (2-12); NEUTROPHILS # (AUTO) 16.8 X10'3 (1.8-7.7); NEUTROPHILS % (AUTO) 87.5 % (42-75); PLATELET COUNT 297 X10'3 (140-440); RED BLOOD COUNT 2.88 X10'6 (4.20-5.60); RED CELL DISTRIBUTION WIDTH 18.6 % (11.5-14.5); WHITE BLOOD COUNT 19.2 X10'3 (4.5-11.0)
[2021-10-05 10:47] LABS: ALANINE AMINOTRANSFERASE 37 U/L (12-78); ALBUMIN 1.2 G/DL (3.4-5.0); ALBUMIN/GLOBULIN RATIO 0.3 (1.1-1.5); ALKALINE PHOSPHATASE 301 IU/L (46-116); ANION GAP 6 (8-16); ASPARTATE AMINO TRANSFERASE 47 U/L (10-37); BILIRUBIN,TOTAL 0.7 MG/DL (0.1-1.0); BLOOD UREA NITROGEN 49 MG/DL (7-18); BUN/CREATININE RATIO 32.7 (6.6-38.0); CALCIUM 7.8 MG/DL (8.5-10.1); CHLORIDE 102 MMOL/L (99-107); GLUCOSE 132 MG/DL (70-104); POTASSIUM 5.6 MMOL/L (3.5-5.1); SODIUM 134 MMOL/L (135-145); TOTAL CARBON DIOXIDE 25.7 MMOL/L (24-32); TOTAL PROTEIN 4.9 G/DL (6.4-8.2); eGFR 38 ML/MIN
[2021-10-05] MEDS: insulin Lispro (HumaLOG) vial - multi-dose SQ SCH ×2 (11:06→15:07)
--- NOTE | 2021-10-05 11:56 | NUR ---
PAGE SENT PAGER ID: [phone] MESSAGE: 307, KATELYNN CLIFFORD, THE ONLY PLANS I KNOW OF ARE REHAB, PT DOESN'T KNOW OF PLANS. K 5.6. THANK YOU, MAGO [id number]
--- NOTE | 2021-10-05 17:28 | NUR ---
PAGE SENT PAGER ID: [phone] MESSAGE: Isela, KATELYNN CLIFFORD, POSITIVE BLOOD CULTURE: DRAWN FROM LEFT ARM ON 10/04. AEROBIC, POSITIVE AT 17.5 HOURS. GRAM POSITIVE COCCI IN CLUSTERS. THANK YOU, MAGO Gavin [phone]
--- NOTE | 2021-10-05 18:30 | NUR ---
Patient in room MED 307. I have received report from GRACE Merritt and GRACE Feng and had the opportunity to ask questions and assume patient care.
--- NOTE | 2021-10-05 19:14 | NUR ---
Problems reprioritized. Patient report given, questions answered & plan of care reviewed with GRACE GALEAS.
[2021-10-05] MEDS: doxycycline inj 100 MG in normal saline 100ml IV soln 100 ML IV SCH (19:49)
--- NOTE | 2021-10-05 21:10 | NUR ---
PAGER ID: [phone] MESSAGE: Sent to Dr. Patino, RE:Janny Vermaice in room 307, Lab called in Positive blood culture result, drawn on 10/04/21, Anaerobic bottle-Gram Neg Cocci in Clusters. No new order received.Pt on IV Antibiotic. Addendum: 10/06/21 at 0011 by Ayanna Vogel RN Gram Negative Cocci in Clusters, not Gram Positive as documented in error.
[2021-10-05] MEDS: insulin glargine (Lantus) pen - multi-dose SQ SCH (21:44)
[2021-10-06] MEDS: HYDROmorph./NS 0.2 mg/ml CADD 100 ML IV SCH ×11 (01:00→21:00)
[2021-10-06 02:00] VITALS: BP 113/73
[2021-10-06 06:00] VITALS: BP 119/67
--- NOTE | 2021-10-06 07:02 | NUR ---
Problems reprioritized. Patient report given, questions answered & plan of care reviewed with GRACE Gregory.
[2021-10-06] MEDS: JUVEN Smoothie Arginine/Glut./Ca2+Bmb (Juven 19.3pkt) 240ml cup PO SCH ×2 (07:30→17:30)
[2021-10-06] MEDS: ESCITALOPRAM OXALATE 5 MG TABLET PO SCH (07:40)
[2021-10-06] MEDS: aspirin 81mg tab.chew PO SCH (07:40)
[2021-10-06] MEDS: apixaban 5mg tablet PO SCH ×2 (07:40→21:55)
[2021-10-06] MEDS: doxycycline inj 100 MG in normal saline 100ml IV soln 100 ML IV SCH ×2 (07:41→21:32)
[2021-10-06] MEDS: carVEDilol 3.125mg tablet PO SCH ×2 (07:44→21:56)
[2021-10-06] MEDS: lactose-reduced food (Ensure Enlive) - 237ml bottle PO SCH ×3 (08:00→18:00)
--- NOTE | 2021-10-06 08:00 | NUR ---
Unable to get a weight Due to bedscale not working and patients pain level to stand or move I am unable to get an accurate weight. Bri ACCLupe
--- NOTE | 2021-10-06 09:54 | NUR ---
CADD PUMP Upon checking/ clearing CADD pump it appeared that the CADD pump had not been cleared since 09/30/21 at 1524; Settings documented and pump cleared. Will continue to monitor/ clear. [facility]
[2021-10-06] MEDS: insulin Lispro (HumaLOG) vial - multi-dose SQ SCH (09:59)
[2021-10-06 10:00] VITALS: BP 111/66
[2021-10-06 10:40] LABS: BASOPHILS # (AUTO) 0.1 X10'3 (0-0.2); BASOPHILS % (AUTO) 0.3 % (0-1); EOSINOPHILS # (AUTO) 0.1 X10'3 (0-0.9); EOSINOPHILS % (AUTO) 0.7 % (0-6); HEMATOCRIT 24.1 % (35.0-45.0); HEMOGLOBIN 7.5 g/dl (12.0-16.0); LYMPHOCYTES # (AUTO) 0.7 X10'3 (1.1-4.8); LYMPHOCYTES % (AUTO) 4.8 % (21-51); MEAN CORPUSCULAR HEMOGLOBIN 26.3 PG (27.0-31.0); MEAN CORPUSCULAR HGB CONC 31.1 g/dL (33.0-36.5); MEAN CORPUSCULAR VOLUME 84.5 FL (78-98); MEAN PLATELET VOLUME 8.8 FL (7.4-10.4); MONOCYTES # (AUTO) 1.1 X10'3 (0-0.9); MONOCYTES % (AUTO) 7.4 % (2-12); NEUTROPHILS # (AUTO) 13.5 X10'3 (1.8-7.7); NEUTROPHILS % (AUTO) 86.8 % (42-75); PLATELET COUNT 347 X10'3 (140-440); RED BLOOD COUNT 2.85 X10'6 (4.20-5.60); RED CELL DISTRIBUTION WIDTH 18.6 % (11.5-14.5); WHITE BLOOD COUNT 15.5 X10'3 (4.5-11.0)
[2021-10-06 10:56] LABS: ALANINE AMINOTRANSFERASE 28 U/L (12-78); ALBUMIN 1.2 G/DL (3.4-5.0); ALBUMIN/GLOBULIN RATIO 0.3 (1.1-1.5); ALKALINE PHOSPHATASE 274 IU/L (46-116); ANION GAP 8 (8-16); ASPARTATE AMINO TRANSFERASE 36 U/L (10-37); BILIRUBIN,TOTAL 0.7 MG/DL (0.1-1.0); BLOOD UREA NITROGEN 47 MG/DL (7-18); BUN/CREATININE RATIO 34.3 (6.6-38.0); CALCIUM 8.5 MG/DL (8.5-10.1); CHLORIDE 101 MMOL/L (99-107); CREATININE 1.37 MG/DL (0.40-0.90); GLUCOSE 147 MG/DL (70-104); POTASSIUM 5.5 MMOL/L (3.5-5.1); SODIUM 132 MMOL/L (135-145); TOTAL CARBON DIOXIDE 23.4 MMOL/L (24-32); TOTAL PROTEIN 5.9 G/DL (6.4-8.2); eGFR 42 ML/MIN
--- NOTE | 2021-10-06 12:27 | NUR ---
Reassessment: Pt PO intake declined, refusing most meals since last nutrition assessment 10/03, though continues to drink 100% Ensure Enlive ONS and Paulino smoothies closely meeting needs. Pt could benefit from MVI to help w/ wound healing. LBM 10/05, not receiving bowel care. Pt still not appropriate for DM education at this time. No further nutrition intervention implemented at this time. Will continue to monitor. Recommendations: 1. Liberalize to regular diet given poor PO intake, encourage PO intake 2. [place] Paulino smoothie BIDBD for wound healing 3. Ensure Enlive TIDWM 4. Reassess pt's desire for tube feeding given poor PO intake 5. MVI for wound healing needs 6. routine bowel care 7. weekly scaled wts 8. DM education once more appropriate prior to discharge; A1C 9.8% hx T2DM Addendum: 10/06/21 at [address] Amended: Links added. Addendum: 10/06/21 at [address] I have reviewed assessment by international marketing executive
--- NOTE | 2021-10-06 12:37 | NUR ---
Refusal of suppository PAGER ID: [phone] MESSAGE: Dr. Ojeda pt in room 307 Nathalia Soliman is refusing her soap suds enema. She states she'd take an oral laxative, but will not take an enema. Thanks Bri MCKEON
[2021-10-06] MEDS ORDERED: bisacodyl 5mg tablet.DR PO PRN (12:40)
--- NOTE | 2021-10-06 12:40 | NUR ---
Medication order Per Dr. Ojeda place order for Ducolax order 10mg oral once. Bri MCKEON
[2021-10-06 15:00] VITALS: BP 120/80
--- NOTE | 2021-10-06 16:17 | NUR ---
Apneic period PAGER ID: [phone] MESSAGE: Dr. Ojeda, pt in room 307 Nathalia Soliman having intermittent periods of apnea where she will desat to mid 80's on pulse ox. Very brief periods maybe a second or two, but I wanted to bring it to your attention. Bri MCKEON
[2021-10-06] MEDS ORDERED: methylnaltrexone br 12mg/0.6ml inj***SubQ only SQ PRN (17:05)
--- NOTE | 2021-10-06 18:43 | NUR ---
Problems reprioritized. Patient report given, questions answered & plan of care reviewed with Honey EDWARDS.
[2021-10-06 18:56] VITALS: BP 123/75
--- NOTE | 2021-10-06 18:59 | NUR ---
Received report from Keeley EDWARDS
[2021-10-06] MEDS: insulin glargine (Lantus) pen - multi-dose SQ SCH (22:15)
[2021-10-06] MEDS: HYDROmorph./NS 0.2 mg/ml CADD 50 ML IV SCH (22:41)
[2021-10-06] MEDS ORDERED: HYDROmorphone (Dilaudid)/NS 0.2 mg/ml 100ml CADD ONE (22:41)
[2021-10-06] MEDS: CADD PCA waste documentation MC PRN (23:27)
[2021-10-07] VITALS (8 sets, daily range): BP systolic 97–117; BP diastolic 57–79
[2021-10-07] MEDS: HYDROmorph./NS 0.2 mg/ml CADD 50 ML IV SCH ×11 (01:00→23:00)
[2021-10-07] MEDS: JUVEN Smoothie Arginine/Glut./Ca2+Bmb (Juven 19.3pkt) 240ml cup PO SCH ×7 (07:30→23:21)
[2021-10-07] MEDS: apixaban 5mg tablet PO SCH ×2 (07:51→19:44)
[2021-10-07] MEDS: ESCITALOPRAM OXALATE 5 MG TABLET PO SCH (07:51)
[2021-10-07] MEDS: aspirin 81mg tab.chew PO SCH (07:51)
[2021-10-07] MEDS: doxycycline inj 100 MG in normal saline 100ml IV soln 100 ML IV SCH (07:51)
[2021-10-07] MEDS: famotidine 20mg tablet PO SCH (07:51)
[2021-10-07] MEDS: carVEDilol 3.125mg tablet PO SCH ×2 (07:52→19:44)
[2021-10-07] MEDS: lactose-reduced food (Ensure Enlive) - 237ml bottle PO SCH ×7 (08:57→20:11)
[2021-10-07 11:58] LABS: BASOPHILS # (AUTO) 0.1 X10'3 (0-0.2); BASOPHILS % (AUTO) 0.4 % (0-1); EOSINOPHILS # (AUTO) 0.1 X10'3 (0-0.9); EOSINOPHILS % (AUTO) 0.7 % (0-6); HEMATOCRIT 23.2 % (35.0-45.0); HEMOGLOBIN 7.1 g/dl (12.0-16.0); LYMPHOCYTES % (AUTO) 6.2 % (21-51); MEAN CORPUSCULAR HGB CONC 30.7 g/dL (33.0-36.5); MEAN CORPUSCULAR VOLUME 84.5 FL (78-98); MEAN PLATELET VOLUME 8.9 FL (7.4-10.4); MONOCYTES % (AUTO) 6.5 % (2-12); NEUTROPHILS # (AUTO) 13.5 X10'3 (1.8-7.7); NEUTROPHILS % (AUTO) 86.2 % (42-75); PLATELET COUNT 387 X10'3 (140-440); RED BLOOD COUNT 2.75 X10'6 (4.20-5.60); RED CELL DISTRIBUTION WIDTH 18.5 % (11.5-14.5); WHITE BLOOD COUNT 15.6 X10'3 (4.5-11.0)
[2021-10-07 12:04] LABS: ALBUMIN 1.3 G/DL (3.4-5.0); ANION GAP 6 (8-16); BLOOD UREA NITROGEN 47 MG/DL (7-18); BUN/CREATININE RATIO 32.9 (6.6-38.0); CALCIUM 8.4 MG/DL (8.5-10.1); CHLORIDE 102 MMOL/L (99-107); CREATININE 1.43 MG/DL (0.40-0.90); GLUCOSE 157 MG/DL (70-104); POTASSIUM 5.4 MMOL/L (3.5-5.1); SODIUM 133 MMOL/L (135-145); TOTAL CARBON DIOXIDE 25.2 MMOL/L (24-32); eGFR 40 ML/MIN
[2021-10-07] MEDS: VANCOMYCIN 1GM/200ML IVPB 200 ML IV SCH (13:31)
--- NOTE | 2021-10-07 15:54 | NUR ---
PRESSURE ULCER EDUCATION: DEFINITION: A pressure ulcer is an area of skin that breaks down when you stay in one position too long. The constant pressure against the skin reduces the blood flow to that area and the affected tissue dies. CAUSES: "Being bedridden or in a wheelchair "Fragile skin "Having a chronic condition, such as diabetes or vascular disease "Inability to move certain parts of your body without assistance "Older age "Incontinence of urine or stool SYMPTOMS: "A reddened area that DOES NOT turn white when pressed on - this can be the beginning of a pressure ulcer "A blister, deep sore or a crater - these can be advanced pressure ulcers FIRST AID: "Relieve the pressure on this area "Keep the area clean and dry "Call your primary doctor if you see any of the above symptoms "DO NOT massage the area "DO NOT use a donut shaped or ring shaped pillow- these actually interfere with the blood flow and cause complications PREVENTION: "Check for pressure ulcers everyday "Change position at least every two hours to relieve pressure "Use items that help relieve pressure- pillows, sheepskin, foam padding, and powders. "Keep skin clean and dry "Eat healthy well balanced meals "Exercise daily IF YOU SEE ANY OF THESE SYMPTOMS WHILE IN THE HOSPITAL - TELL YOUR NURSE IMMEDIATELY. IF YOU SEE ANY OF THESE SYMPTOMS WHILE AT HOME OR HAVE ANY QUESTIONS OR CONCERNS ABOUT PRESSURE ULCERS - CALL YOUR PRIMARY DOCTOR IMMEDIATELY. Addendum: 10/07/21 at 1554 by Xiomara Andrade RN Amended: Links added.
--- NOTE | 2021-10-07 16:24 | NUR ---
Message left for Dr. Short regarding patient in room 307 Nathalia Soliman potassium level 5.4 was 5.5 yesterday
[2021-10-07] MEDS: insulin glargine (Lantus) pen - multi-dose SQ SCH (22:10)
[2021-10-07] MEDS: diatr meglu/diatrizoate 30ml oral sol.-(3 dose) bottle PO SCH (22:22)
[2021-10-08] MEDS: JUVEN Smoothie Arginine/Glut./Ca2+Bmb (Juven 19.3pkt) 240ml cup PO SCH (00:11)
[2021-10-08] MEDS: lactose-reduced food (Ensure Enlive) - 237ml bottle PO SCH ×4 (00:12→05:12)
[2021-10-08] MEDS: HYDROmorph./NS 0.2 mg/ml CADD 50 ML IV SCH ×10 (01:00→23:00)
[2021-10-08] MEDS: VANCOMYCIN 1GM/200ML IVPB 200 ML IV SCH ×3 (01:33→23:46)
[2021-10-08 02:00] VITALS: BP 104/67
[2021-10-08 07:00] VITALS: BP 104/65
[2021-10-08] MEDS: diatr meglu/diatrizoate 30ml oral sol.-(3 dose) bottle PO SCH ×2 (07:00→21:00)
[2021-10-08] MEDS: carVEDilol 3.125mg tablet PO SCH ×2 (08:09→20:13)
[2021-10-08] MEDS: aspirin 81mg tab.chew PO SCH (08:09)
[2021-10-08] MEDS: ESCITALOPRAM OXALATE 5 MG TABLET PO SCH (08:09)
[2021-10-08] MEDS: apixaban 5mg tablet PO SCH ×2 (08:10→20:12)
[2021-10-08] MEDS ORDERED: HYDROmorphone (Dilaudid)/NS 0.2 mg/ml 100ml CADD ONE (08:45)
[2021-10-08] MEDS: acetaminophen 325mg tablet PO PRN (10:39)
[2021-10-08] MEDS ORDERED: HYDROmorphone inj. 0.5 MG/0.5 ML DISP.SYRIN IV ONE (10:45)
[2021-10-08 11:00] VITALS: BP 95/63
[2021-10-08 15:00] VITALS: BP 90/62
[2021-10-08] MEDS: piperacillin/tazo 3.375gm/50ml 50 ML IV SCH ×2 (16:00→23:47)
[2021-10-08 16:56] LABS: BASOPHILS # (AUTO) 0.1 X10'3 (0-0.2); BASOPHILS % (AUTO) 0.8 % (0-1); EOSINOPHILS # (AUTO) 0.1 X10'3 (0-0.9); EOSINOPHILS % (AUTO) 0.9 % (0-6); HEMATOCRIT 23.5 % (35.0-45.0); HEMOGLOBIN 7.1 g/dl (12.0-16.0); LYMPHOCYTES # (AUTO) 0.9 X10'3 (1.1-4.8); LYMPHOCYTES % (AUTO) 7.5 % (21-51); MEAN CORPUSCULAR HEMOGLOBIN 26.3 PG (27.0-31.0); MEAN CORPUSCULAR HGB CONC 30.3 g/dL (33.0-36.5); MEAN CORPUSCULAR VOLUME 86.9 FL (78-98); MEAN PLATELET VOLUME 9.2 FL (7.4-10.4); MONOCYTES # (AUTO) 0.9 X10'3 (0-0.9); NEUTROPHILS # (AUTO) 10.3 X10'3 (1.8-7.7); NEUTROPHILS % (AUTO) 83.8 % (42-75); PLATELET COUNT 384 X10'3 (140-440); RED BLOOD COUNT 2.71 X10'6 (4.20-5.60); RED CELL DISTRIBUTION WIDTH 18.7 % (11.5-14.5); WHITE BLOOD COUNT 12.3 X10'3 (4.5-11.0)
[2021-10-08 17:04] LABS: ALBUMIN 1.4 G/DL (3.4-5.0); ANION GAP 6 (8-16); BLOOD UREA NITROGEN 52 MG/DL (7-18); BUN/CREATININE RATIO 35.1 (6.6-38.0); CHLORIDE 97 MMOL/L (99-107); CREATININE 1.48 MG/DL (0.40-0.90); GLUCOSE 159 MG/DL (70-104); SODIUM 126 MMOL/L (135-145); TOTAL CARBON DIOXIDE 23.3 MMOL/L (24-32); eGFR 39 ML/MIN
[2021-10-08 17:07] LABS: POTASSIUM 6.2 MMOL/L (3.5-5.1)
[2021-10-08 17:27] LABS: PLATELET ESTIMATE NORMAL
[2021-10-08 17:28] LABS: ANISOCYTOSIS 2+; POLYCHROMASIA FEW
[2021-10-08] MEDS ORDERED: sodium polystyrene sulfonate 15gm/60ml oral suspension PO ONE (17:30)
[2021-10-08 19:24] VITALS: BP 103/67
[2021-10-08] MEDS: furosemide 20 MG/2 ML vial IV SCH (20:13)
[2021-10-08 20:14] VITALS: BP 110/66
[2021-10-08] MEDS: insulin glargine (Lantus) pen - multi-dose SQ SCH (23:15)
[2021-10-09] VITALS (13 sets, daily range): BP systolic 99–116; BP diastolic 54–76
[2021-10-09] MEDS ORDERED: VANCOMYCIN LEVEL IV ONE ×2 (00:30→12:30)
[2021-10-09] MEDS: HYDROmorph./NS 0.2 mg/ml CADD 50 ML IV SCH ×12 (01:00→23:00)
--- NOTE | 2021-10-09 06:28 | NUR ---
Patient in room MED 307. I have received report from GRACE SIMPSON and had the opportunity to ask questions and assume patient care.
[2021-10-09 06:31] LABS: BASOPHILS # (AUTO) 0.1 X10'3 (0-0.2); BASOPHILS % (AUTO) 0.9 % (0-1); EOSINOPHILS # (AUTO) 0.2 X10'3 (0-0.9); EOSINOPHILS % (AUTO) 1.7 % (0-6); LYMPHOCYTES # (AUTO) 0.8 X10'3 (1.1-4.8); LYMPHOCYTES % (AUTO) 7.8 % (21-51); MEAN CORPUSCULAR HEMOGLOBIN 27.2 PG (27.0-31.0); MEAN CORPUSCULAR HGB CONC 31.9 g/dL (33.0-36.5); MEAN CORPUSCULAR VOLUME 85.2 FL (78-98); MEAN PLATELET VOLUME 9.1 FL (7.4-10.4); MONOCYTES # (AUTO) 0.9 X10'3 (0-0.9); MONOCYTES % (AUTO) 8.8 % (2-12); NEUTROPHILS # (AUTO) 8.3 X10'3 (1.8-7.7); NEUTROPHILS % (AUTO) 80.8 % (42-75); PLATELET COUNT 397 X10'3 (140-440); RED BLOOD COUNT 2.56 X10'6 (4.20-5.60); WHITE BLOOD COUNT 10.3 X10'3 (4.5-11.0)
[2021-10-09 06:39] LABS: HEMATOCRIT 21.8 % (35.0-45.0)
--- NOTE | 2021-10-09 06:43 | NUR ---
CRITICAL HGB 7.[address] CORRALES AWAITING CALL BACK PAGER ID: [phone] MESSAGE: VENESSA 307: CRITICAL HGB 7.0 HCT 21.8. THANK YOU KRISTY [phone]
[2021-10-09] MEDS: JUVEN Smoothie Arginine/Glut./Ca2+Bmb (Juven 19.3pkt) 240ml cup PO SCH ×2 (07:30→17:30)
[2021-10-09 08:08] LABS: ALBUMIN 1.4 G/DL (3.4-5.0); BLOOD UREA NITROGEN 49 MG/DL (7-18); BUN/CREATININE RATIO 33.3 (6.6-38.0); CALCIUM 8.1 MG/DL (8.5-10.1); CREATININE 1.47 MG/DL (0.40-0.90); GLUCOSE 104 MG/DL (70-104); TOTAL CARBON DIOXIDE 25.1 MMOL/L (24-32); eGFR 39 ML/MIN
[2021-10-09] MEDS: aspirin 81mg tab.chew PO SCH (08:38)
[2021-10-09] MEDS: ESCITALOPRAM OXALATE 5 MG TABLET PO SCH (08:38)
[2021-10-09] MEDS: famotidine 20mg tablet PO SCH (08:38)
[2021-10-09] MEDS: apixaban 5mg tablet PO SCH ×2 (08:39→20:30)
[2021-10-09] MEDS: carVEDilol 3.125mg tablet PO SCH ×2 (08:39→20:30)
[2021-10-09] MEDS: furosemide 20 MG/2 ML vial IV SCH ×2 (08:47→20:30)
[2021-10-09] MEDS: piperacillin/tazo 3.375gm/50ml 50 ML IV SCH ×2 (08:47→18:44)
[2021-10-09] MEDS: lactose-reduced food (Ensure Enlive) - 237ml bottle PO SCH ×7 (08:47→21:54)
--- NOTE | 2021-10-09 09:47 | NUR ---
Reassessment: Pt PO remains similar, mostly refusing all meals though continues to drink mostly 100% Ensure Enlive ONS and Paulino smoothies closely meeting needs. Pt could benefit from MVI to help w/ wound healing. LBM 3/4 after PRN bowel care. Pt may still benefit from supplemental TF given mostly refusal of all meals, though pt has previously refused NGT. Recommend reassessing pt's desire to receiving nutrition support. Will continue to monitor. Recommendations: 1. Liberalize to regular diet given poor PO intake, encourage PO intake 2. [place] Paulino smoothie BIDBD for wound healing 3. Ensure Enlive TIDWM 4. Reassess pt's desire for tube feeding given poor PO intake 5. MVI for wound healing needs 6. routine bowel care 7. weekly scaled wts 8. DM education once more appropriate prior to discharge; A1C 9.8% hx T2DM Addendum: 10/09/21 at [address] Amended: Links added.
[2021-10-09] MEDS: VANCOMYCIN 1GM/200ML IVPB 200 ML IV SCH (13:00)
--- NOTE | 2021-10-09 13:12 | NUR ---
CRITICAL ABIOLA 31.6, DR CORRALES. PHARMACIST TO [facility] AND WILL HOLD 1300 DOSE PAGER ID: [phone] MESSAGE: VENESSA BARFIELD 307A: CRITICAL ABIOLA .. PHARM TO [facility]. THANK YOU KRISTY [phone]
[2021-10-09 13:15] LABS: POTASSIUM 5.7 MMOL/L (3.3-5.1)
[2021-10-09] MEDS ORDERED: HYDROmorphone (Dilaudid)/NS 0.2 mg/ml 100ml CADD ONE (18:04)
[2021-10-09] MEDS: CADD PCA waste documentation MC PRN (18:06)
[2021-10-09] MEDS ORDERED: sodium polystyrene sulfonate 15gm/60ml oral suspension PO ONE (18:10)
--- NOTE | 2021-10-09 18:45 | NUR ---
Problems reprioritized. Patient report given, questions answered & plan of care reviewed with GRACE SIMPSON.
[2021-10-09] MEDS: linezolid 600mg tablet PO SCH (20:33)
[2021-10-09] MEDS: insulin glargine (Lantus) pen - multi-dose SQ SCH (21:12)
--- NOTE | 2021-10-09 23:00 | NUR ---
The lab called with pasitive blood cultuer: Gram Positive Rods, the MD notified, patient on Antibiotics both PO & IV.
[2021-10-10] VITALS (13 sets, daily range): BP systolic 105–132; BP diastolic 60–83
[2021-10-10] MEDS: lactose-reduced food (Ensure Enlive) - 237ml bottle PO SCH ×2 (00:56→00:57)
[2021-10-10] MEDS: piperacillin/tazo 3.375gm/50ml 50 ML IV SCH ×3 (00:58→15:45)
[2021-10-10] MEDS: HYDROmorph./NS 0.2 mg/ml CADD 50 ML IV SCH ×12 (01:00→23:00)
[2021-10-10] MEDS ORDERED: VANCOMYCIN LEVEL IV ONE (05:00)
--- NOTE | 2021-10-10 06:29 | NUR ---
Patient in room MED 307. I have received report from GRACE Méndez and had the opportunity to ask questions and assume patient care.
[2021-10-10 06:30] LABS: BASOPHILS # (AUTO) 0.1 X10'3 (0-0.2); BASOPHILS % (AUTO) 0.9 % (0-1); EOSINOPHILS # (AUTO) 0.1 X10'3 (0-0.9); EOSINOPHILS % (AUTO) 1.3 % (0-6); HEMATOCRIT 23.4 % (35.0-45.0); HEMOGLOBIN 7.4 g/dl (12.0-16.0); LYMPHOCYTES # (AUTO) 0.7 X10'3 (1.1-4.8); LYMPHOCYTES % (AUTO) 7.4 % (21-51); MEAN CORPUSCULAR HEMOGLOBIN 26.7 PG (27.0-31.0); MEAN CORPUSCULAR HGB CONC 31.8 g/dL (33.0-36.5); MEAN CORPUSCULAR VOLUME 83.8 FL (78-98); MEAN PLATELET VOLUME 8.9 FL (7.4-10.4); MONOCYTES # (AUTO) 0.8 X10'3 (0-0.9); NEUTROPHILS # (AUTO) 7.9 X10'3 (1.8-7.7); NEUTROPHILS % (AUTO) 82.4 % (42-75); PLATELET COUNT 365 X10'3 (140-440); RED BLOOD COUNT 2.79 X10'6 (4.20-5.60); RED CELL DISTRIBUTION WIDTH 18.5 % (11.5-14.5); WHITE BLOOD COUNT 9.6 X10'3 (4.5-11.0)
[2021-10-10 06:34] LABS: ALBUMIN 1.3 G/DL (3.4-5.0); ANION GAP 8 (8-16); BLOOD UREA NITROGEN 51 MG/DL (7-18); BUN/CREATININE RATIO 33.3 (6.6-38.0); CHLORIDE 99 MMOL/L (99-107); CREATININE 1.53 MG/DL (0.40-0.90); GLUCOSE 152 MG/DL (70-104); SODIUM 134 MMOL/L (135-145); TOTAL CARBON DIOXIDE 27.3 MMOL/L (24-32); eGFR 37 ML/MIN
[2021-10-10] MEDS: aspirin 81mg tab.chew PO SCH (07:06)
[2021-10-10] MEDS: apixaban 5mg tablet PO SCH ×2 (07:06→20:00)
[2021-10-10] MEDS: ESCITALOPRAM OXALATE 5 MG TABLET PO SCH (07:14)
[2021-10-10] MEDS: carVEDilol 3.125mg tablet PO SCH ×2 (07:14→20:00)
[2021-10-10] MEDS: linezolid 600mg tablet PO SCH ×2 (07:14→20:00)
[2021-10-10] MEDS: furosemide 20 MG/2 ML vial IV SCH ×2 (07:16→20:00)
[2021-10-10] MEDS: JUVEN Smoothie Arginine/Glut./Ca2+Bmb (Juven 19.3pkt) 240ml cup PO SCH ×2 (07:30→17:30)
--- NOTE | 2021-10-10 09:00 | NUR ---
pt is npo at this time, therefore pt is not a canidate for insulin at this time, continue to monitor
--- NOTE | 2021-10-10 13:14 | NUR ---
Pt is to go to OR today and was not seen by [facility] nursing today, will f/u tomorrow as she may have NPWT placed. Report to primary nurse to call if OR schedule changes. Addendum: 10/10/21 at 1317 by Zuleima Villalta RN Amended: Links added.
--- NOTE | 2021-10-10 13:19 | NUR ---
PT IS NPO AT THIS TIME, THEREFORE PT IS NOT A CANIDATE FOR INSULIN AT THIS TIME, CONTINUE TO MONITOR BG
--- NOTE | 2021-10-10 13:51 | NUR ---
SENT A PAGE TO HOSPITALIST LETTING THEM KNOW THAT PT HAS BEEN NPO SINCE THIS MORNING AND THAT PT HAS NOT GONE TO SURGERY YET, NO NEW ORDERS AT THIS TIME, CONTINUE TO MONITOR PT
[2021-10-10] MEDS ORDERED: methylnaltrexone br 12mg/0.6ml inj***SubQ only SQ PRN (13:56)
--- NOTE | 2021-10-10 14:03 | NUR ---
DM/Zyvox Consult: Noted pt A1c of 9.8, hx of DM, and pt on zyvox. machine learning intern provided verbal and written low tyramine diet and DM diet education and RD contact information. Will continue to monitor. Addendum: 10/10/21 at [address] I have reviewed assessment by project management intern Addendum: 10/10/21 at 1409 by Mirza Kat - Chopping Machine Operator RD Amended: Links added.
--- NOTE | 2021-10-10 17:09 | NUR ---
pt complaining about wanting to eat food, I sent a page to hospitalist about pt going to OR tonight, hospitalist said that I needed to call Dr. Leonard about pt going to surgery, I called the OR and OR charge said that patient is scheduled for surgery with Dr. Aisha burris but there was not an actual time set for the surgery I educated pt about going to surgery tonight and her NPO status
--- NOTE | 2021-10-10 18:40 | NUR ---
Problems reprioritized. Patient report given, questions answered & plan of care reviewed with GRACE MELENDEZ.
--- NOTE | 2021-10-10 19:41 | NUR ---
Patient left for surgery via via bed.
[2021-10-10] MEDS ORDERED: heparin 10,000 units/1 ML INJ ONE (19:59)
[2021-10-10] MEDS ORDERED: morphine 2 MG/ML inj. syringe IV PRN (20:05)
[2021-10-10] MEDS ORDERED: hydrALAZINE 20mg/ml inj. IV PRN (20:05)
[2021-10-10] MEDS ORDERED: HYDROmorphone/PF 0.2 MG/ML SYRINGE IV PRN (20:05)
[2021-10-10] MEDS ORDERED: labetalol 20mg/4ml (5mg/ml) syringe IV PRN (20:05)
[2021-10-10] MEDS ORDERED: proCHLORperazine 10 MG/2 ml inj IV PRN (20:05)
[2021-10-10] MEDS ORDERED: ringers solution, lacted 1,000 ML IV SCH (20:05)
[2021-10-10] MEDS ORDERED: morphine 4 MG/ML inj SYRINge IV PRN (20:05)
[2021-10-10] MEDS ORDERED: ondansetron/PF 4mg/2ml inj IV PRN (20:05)
[2021-10-10] MEDS ORDERED: midazolam 1 mg/ML 2ml injection ONE (20:14)
[2021-10-10] MEDS ORDERED: fentaNYL /PF 50mcg/ml 5ml ampule ONE (20:15)
[2021-10-10] MEDS ORDERED: sevoflurane 250ml liquid IH ONE (20:18)
[2021-10-10] MEDS ORDERED: propofol inj 20 ML IV ONE (20:38)
[2021-10-10] MEDS ORDERED: rocuronium 10mg/ml inj IV ONE (20:38)
[2021-10-10] MEDS ORDERED: LIDOcaine 2% (20mg/ml) 5ml vial ONE (20:38)
[2021-10-10] MEDS ORDERED: dexamethasone sod phosphate 4mg/ml inj. ONE (20:57)
[2021-10-10] MEDS ORDERED: ondansetron/PF 4mg/2ml inj ONE (20:57)
[2021-10-10] MEDS: insulin glargine (Lantus) pen - multi-dose SQ SCH (21:00)
--- NOTE | 2021-10-10 21:00 | NUR ---
Pt remains in Surgery. Addendum: 10/11/21 at 0453 by Faviola Vogel RN Amended: Links added.
[2021-10-10] MEDS ORDERED: neostigmine methylsulfate 1 MG/ML 10ml vial ONE (21:26)
[2021-10-10] MEDS ORDERED: glycopyrrolate 0.2mg/ml inj ONE (21:26)
--- NOTE | 2021-10-10 21:47 | NUR ---
Received from OR via BED, accompanied by Anesthesiologist DR HEATH and report given by Anesthesiologist. PT DROWSY, DENIES PAIN. BILAT GROINS W/WOUND VAC W/BLACK FOAM DRSChristiano CDI, SETTINGS 125MMHG LCS W/S/S DRAINAGE IN WOUND VAC CANISTER. BILAT PEDAL PULSES DOPPLER QUALITY W/LEFT STRONGER THAN RIGHT. DR VELA IN, DISCUSSED WOUND VAC SETTINGS, ORDERS TO DECREASE TO 75 MMGH LCS. BS 62, DR HEATH ORDERED 12.5 ML D50%, GIVEN BUT WAS UNABLE TO SCAN AT TIME GIVEN, SEE ADMINISTER NOTES. REPEAT BS 97. Addendum: 10/10/21 at 2252 by Yakelin Mehta RN Amended: Links added.
[2021-10-10] MEDS ORDERED: dextrose 50%-water 50ml dispensing syringe IV ONE ×3 (22:00→22:30)
[2021-10-10] MEDS: HYDROmorphone/PF 0.2 MG/ML SYRINGE IV PRN (22:23)
[2021-10-10] MEDS: acetaminophen 1,000mg/100ml IV 100 ML IV PRN (22:24)
--- NOTE | 2021-10-10 23:17 | NUR ---
PT STATES IS COMFORTABLE, REQUESTING DINNER. Report called to receiving nurse. Transferred via BED NO Belongings. WOUND VAC W/S/S DRAINAGE. RECEIVING RN AT BEDSIDE TO RECEIVE PT. BLL, SIDE RIALS UP X 2. Special Issues communicated to receiving nurse. YES. Addendum: 10/10/21 at 7245 by Yakelin Mehta RN Amended: Links added.
--- NOTE | 2021-10-10 23:30 | NUR ---
pt return from surgery in bed drowsy but arousable.Iv fluids infusing in right hand with CADD Pump attached with dilaudid. Continueous & demand. Bilateral wound in groin with clear occlusive dressings connected to vac patent with setting at 75mmhg and serosangeous drainage noted. Bilateral boots to feet. pedal pulse noted.
[2021-10-11] MEDS: CADD PCA waste documentation MC PRN (00:58)
[2021-10-11] MEDS: HYDROmorph./NS 0.2 mg/ml CADD 50 ML IV SCH ×11 (01:06→23:00)
[2021-10-11] MEDS: piperacillin/tazo 3.375gm/50ml 50 ML IV SCH ×3 (01:15→16:18)
[2021-10-11] MEDS: acetaminophen 1,000mg/100ml IV 100 ML IV PRN (01:23)
[2021-10-11] MEDS: HYDROmorphone/PF 0.2 MG/ML SYRINGE IV PRN ×6 (01:25→12:11)
[2021-10-11 02:00] VITALS: BP 122/76
--- NOTE | 2021-10-11 04:00 | NUR ---
pt wound vac began alarming that showed blockage at this time the drainage collection was changed and the machine was trouble shot the problem to no avail. Aleak was noted to the right thigh dressing and it was reenforced. which help a little. A call was placed by the resource GRACE gold to wound care department to come and check the machine this am.
[2021-10-11 06:00] VITALS: BP 122/75
--- NOTE | 2021-10-11 06:00 | NUR ---
Patient in room MED 307. I have received report from GRACE MELENDEZ, and had the opportunity to ask questions and assume patient care.
--- NOTE | 2021-10-11 06:49 | NUR ---
Problems reprioritized. Patient report given, questions answered & plan of care reviewed with Ping.
[2021-10-11] MEDS: JUVEN Smoothie Arginine/Glut./Ca2+Bmb (Juven 19.3pkt) 240ml cup PO SCH ×2 (07:30→17:30)
[2021-10-11] MEDS: lactose-reduced food (Ensure Enlive) - 237ml bottle PO SCH ×3 (08:00→18:00)
[2021-10-11 08:42] LABS: BASOPHILS % (AUTO) 0.3 % (0-1); EOSINOPHILS % (AUTO) 0 % (0-6); HEMOGLOBIN 8.7 g/dl (12.0-16.0); LYMPHOCYTES # (AUTO) 0.4 X10'3 (1.1-4.8); MEAN CORPUSCULAR HEMOGLOBIN 26.2 PG (27.0-31.0); MEAN CORPUSCULAR HGB CONC 31.2 g/dL (33.0-36.5); MEAN CORPUSCULAR VOLUME 84.1 FL (78-98); MEAN PLATELET VOLUME 8.6 FL (7.4-10.4); MONOCYTES # (AUTO) 0.1 X10'3 (0-0.9); MONOCYTES % (AUTO) 0.8 % (2-12); NEUTROPHILS # (AUTO) 9.1 X10'3 (1.8-7.7); NEUTROPHILS % (AUTO) 94.9 % (42-75); PLATELET COUNT 435 X10'3 (140-440); RED BLOOD COUNT 3.33 X10'6 (4.20-5.60); RED CELL DISTRIBUTION WIDTH 17.9 % (11.5-14.5); WHITE BLOOD COUNT 9.6 X10'3 (4.5-11.0)
[2021-10-11 08:49] LABS: ALBUMIN 1.7 G/DL (3.4-5.0); ANION GAP 3 (8-16); BLOOD UREA NITROGEN 45 MG/DL (7-18); BUN/CREATININE RATIO 31.5 (6.6-38.0); CALCIUM 8.5 MG/DL (8.5-10.1); CHLORIDE 99 MMOL/L (99-107); CREATININE 1.43 MG/DL (0.40-0.90); GLUCOSE 110 MG/DL (70-104); POTASSIUM 3.7 MMOL/L (3.5-5.1); SODIUM 135 MMOL/L (135-145); TOTAL CARBON DIOXIDE 33.2 MMOL/L (24-32); eGFR 40 ML/MIN
[2021-10-11] MEDS: ESCITALOPRAM OXALATE 5 MG TABLET PO SCH (09:11)
[2021-10-11] MEDS: apixaban 5mg tablet PO SCH ×2 (09:11→21:17)
[2021-10-11] MEDS: linezolid 600mg tablet PO SCH ×2 (09:11→21:17)
[2021-10-11] MEDS: aspirin 81mg tab.chew PO SCH (09:12)
[2021-10-11] MEDS: carVEDilol 3.125mg tablet PO SCH ×2 (09:12→21:18)
[2021-10-11] MEDS: famotidine 20mg tablet PO SCH (09:13)
--- NOTE | 2021-10-11 09:19 | NUR ---
dilaudid NEWCOMER HOSTESS REASSESSMENT: RV - 39.5, GIVEN - 5, ATTEMPTS - 6, AMOUNT GIVEN - 1.81
[2021-10-11 10:00] VITALS: BP 115/68
[2021-10-11] MEDS: furosemide 20 MG/2 ML vial IV SCH ×2 (10:44→21:17)
--- NOTE | 2021-10-11 13:53 | NUR ---
07 Wound care in following reports from nursing that the NPWT has had intermittent alarming secondary to dressing leak since approximately 529. The machine is alarming, dressings assessed. Found to have obvious leak on the right probable R/T placement of phalange and the patient's surrounding tissue firm edema. Charge in-patient wound nurse also assessed. Phalange replaced to the right groin adding one piece of silver foam achieving a seal running at -75mmHg. Report given to primary nurse. Addendum: 10/11/21 at 1401 by Xiomara Andrade RN Amended: Links added.
[2021-10-11 14:00] VITALS: BP 114/61
[2021-10-11] MEDS: insulin Lispro (HumaLOG) vial - multi-dose SQ SCH ×3 (14:06→21:27)
--- NOTE | 2021-10-11 14:59 | NUR ---
PAGE SENT PAGER ID: [phone] MESSAGE: 307A, KATELYNN CLIFFORD, MAY WE HAVE PT CONTINUING ORDER? MARLON MELLO. MAGO [phone]
[2021-10-11 18:00] VITALS: BP 116/57
--- NOTE | 2021-10-11 18:07 | NUR ---
Problems reprioritized. Patient report given, questions answered & plan of care reviewed with GRACE CONCEPCION.
--- NOTE | 2021-10-11 18:08 | NUR ---
Patient in room MED 307. I have received report from GRACE Feng and had the opportunity to ask questions and assume patient care. Patient A&O x4, MARSH and is appropriate, she is sitting up in bed eating dinner at this time w/o problem.
[2021-10-11] MEDS: spironolactone 50 MG tablet PO SCH (21:18)
[2021-10-11] MEDS: insulin glargine (Lantus) pen - multi-dose SQ SCH (21:26)
[2021-10-11 22:00] VITALS: BP 127/61
[2021-10-12] MEDS: piperacillin/tazo 3.375gm/50ml 50 ML IV SCH ×4 (00:41→23:43)
[2021-10-12] MEDS: HYDROmorph./NS 0.2 mg/ml CADD 50 ML IV SCH ×7 (01:00→15:28)
[2021-10-12 02:00] VITALS: BP 114/61
[2021-10-12 05:42] LABS: BASOPHILS # (AUTO) 0.1 X10'3 (0-0.2); BASOPHILS % (AUTO) 0.6 % (0-1); EOSINOPHILS % (AUTO) 0.5 % (0-6); HEMATOCRIT 23.2 % (35.0-45.0); HEMOGLOBIN 7.3 g/dl (12.0-16.0); LYMPHOCYTES # (AUTO) 0.8 X10'3 (1.1-4.8); MEAN CORPUSCULAR HEMOGLOBIN 26.4 PG (27.0-31.0); MEAN CORPUSCULAR HGB CONC 31.6 g/dL (33.0-36.5); MEAN CORPUSCULAR VOLUME 83.6 FL (78-98); MEAN PLATELET VOLUME 8.8 FL (7.4-10.4); MONOCYTES # (AUTO) 0.8 X10'3 (0-0.9); MONOCYTES % (AUTO) 9.9 % (2-12); NEUTROPHILS # (AUTO) 6.8 X10'3 (1.8-7.7); PLATELET COUNT 395 X10'3 (140-440); RED BLOOD COUNT 2.78 X10'6 (4.20-5.60); RED CELL DISTRIBUTION WIDTH 18.3 % (11.5-14.5); WHITE BLOOD COUNT 8.5 X10'3 (4.5-11.0)
[2021-10-12] MEDS ORDERED: ondansetron 4mg rapidly disintigrating tab PO ONE (05:55)
[2021-10-12 05:56] LABS: ALBUMIN 1.5 G/DL (3.4-5.0); ANION GAP 8 (8-16); BLOOD UREA NITROGEN 51 MG/DL (7-18); BUN/CREATININE RATIO 33.1 (6.6-38.0); CALCIUM 7.8 MG/DL (8.5-10.1); CHLORIDE 98 MMOL/L (99-107); CREATININE 1.54 MG/DL (0.40-0.90); GLUCOSE 172 MG/DL (70-104); POTASSIUM 3.4 MMOL/L (3.5-5.1); SODIUM 135 MMOL/L (135-145); TOTAL CARBON DIOXIDE 29.4 MMOL/L (24-32); eGFR 37 ML/MIN
[2021-10-12 06:00] VITALS: BP 113/59
--- NOTE | 2021-10-12 06:15 | NUR ---
Problems reprioritized. Patient report given, questions answered & plan of care reviewed with GRACE Feng.
--- NOTE | 2021-10-12 06:26 | NUR ---
Patient in room MED 307. I have received report from GRACE CONCEPCION, and had the opportunity to ask questions and assume patient care.
[2021-10-12] MEDS: apixaban 5mg tablet PO SCH ×2 (07:39→20:00)
[2021-10-12] MEDS: linezolid 600mg tablet PO SCH ×2 (07:39→20:30)
[2021-10-12] MEDS: ESCITALOPRAM OXALATE 5 MG TABLET PO SCH (07:39)
[2021-10-12] MEDS: carVEDilol 3.125mg tablet PO SCH ×2 (07:39→20:30)
[2021-10-12] MEDS: spironolactone 50 MG tablet PO SCH ×2 (07:39→20:30)
[2021-10-12] MEDS: furosemide 20 MG/2 ML vial IV SCH ×2 (07:41→21:06)
[2021-10-12] MEDS: JUVEN Smoothie Arginine/Glut./Ca2+Bmb (Juven 19.3pkt) 240ml cup PO SCH ×2 (07:41→08:41)
[2021-10-12] MEDS: lactose-reduced food (Ensure Enlive) - 237ml bottle PO SCH ×5 (07:41→20:30)
--- NOTE | 2021-10-12 09:03 | NUR ---
PAGE SENT PAGER ID: [phone] MESSAGE: 307A, KATELYNN CLIFFORD, NEED ELECTROLYTE ORDERS, K - 3.4. THANK YOU, MAGO [phone]
--- NOTE | 2021-10-12 09:19 | NUR ---
Reassessment: Pt s/p bilateral groin wound exploration and wound VAC placement 10/10 per EMR. PO intake improved, ~57% avg carb controlled meals, ~56% avg Ensure Enlive ONS, and ~67% avg Paulino smoothies, though refusing some meals and ONS at times. On average, meeting estimated nutritional needs. Pt could benefit from MVI to help w/ wound healing. LBM 10/11, PRN bowel care available. Will continue to monitor. Recommendations: 1. Liberalize to regular diet given poor PO intake, encourage PO intake 2. [place] Paulino smoothie BIDBD for wound healing 3. Ensure Enlive TIDWM 4. Monitor need for tube feeding given hx poor PO intake 5. MVI for wound healing needs 6. routine bowel care 7. weekly scaled wts Addendum: 10/12/21 at [address] Amended: Links added. Addendum: 10/12/21 at [address] I have reviewed assessment by post graduate internship
[2021-10-12] MEDS ORDERED: magnesium 2GM in 50ml NS 50 ML IV PRN (10:15)
[2021-10-12] MEDS ORDERED: potassium Cl 20 mEq SR tablet PO PRN (10:15)
[2021-10-12] MEDS ORDERED: magnesium 4gm in 100ml NS 100 ML IV PRN (10:15)
[2021-10-12] MEDS ORDERED: potassium CL 10mEq/100ml bag 100 ML IV PRN (10:15)
[2021-10-12] MEDS ORDERED: magnesium Cl slow-release 64mg tablet PO PRN (10:15)
[2021-10-12 10:51] LABS: MAGNESIUM 1.7 MG/DL (1.5-2.4)
[2021-10-12] MEDS: ondansetron/PF 4mg/2ml inj IV PRN (11:24)
[2021-10-12 11:29] LABS: MAGNESIUM 1.7 MG/DL (1.5-2.4); POTASSIUM 3.3 MMOL/L (3.5-5.1)
[2021-10-12] MEDS: aspirin 81mg tab.chew PO SCH (12:31)
[2021-10-12] MEDS: potassium Cl 20 mEq SR tablet PO PRN ×2 (12:32→16:46)
[2021-10-12] MEDS: insulin Lispro (HumaLOG) vial - multi-dose SQ SCH (13:53)
[2021-10-12] MEDS: CADD PCA waste documentation MC PRN (16:09)
--- NOTE | 2021-10-12 16:12 | NUR ---
PT HAD LOW RESPIRATIONS, CADD D/C'D PER MD. 0.48 GIVEN, 47.8 WASTED.
[2021-10-12 16:59] VITALS: BP 93/59
--- NOTE | 2021-10-12 17:03 | NUR ---
PAGE SENT PAGER ID: [phone] MESSAGE: 307A, ORACIO TINEO DISCONTINUED D/T LOW RESPIRATIONS. NO OTHER PAIN MEDS ORDERED. THANK YOU, MAGO Gavin [phone]
--- NOTE | 2021-10-12 17:30 | NUR ---
PT'S RESPIRATIONS WERE LESS THAN 10. BREATHS WERE ASSESSED AT 6 BPM. O2 WAS 98 - 100. MD NOTIFIED AND CADD DISCONTINUED. IT WAS NOTED THAT THE PT HADN'T USED THE CADD SINCE 10:51. PT WAS ROUSABLE, AND THE PT SAT UP IN BED. PT WAS IRRITABLE. EXCHANGE TELLER WAS NOTIFIED, SECURITY CALLED AND THIS NURSE AND THE CHARGE NURSE SEARCHED PT'S BELONGINGS FOR SEDATIVES. NOTHING WAS FOUND.
[2021-10-12 18:00] VITALS: BP 123/72
--- NOTE | 2021-10-12 18:32 | NUR ---
Problems reprioritized. Patient report given, questions answered & plan of care reviewed with GRACE PISANO.
[2021-10-12] MEDS: K and/or MAG REPLACEMENT MC SCH (20:00)
[2021-10-12] MEDS: insulin glargine (Lantus) pen - multi-dose SQ SCH (21:00)
[2021-10-12 22:00] VITALS: BP 114/68
[2021-10-13] MEDS ORDERED: oxyCODONE/APAP 5-325mg tablet PO ONE (00:30)
--- NOTE | 2021-10-13 01:50 | NUR ---
PT IN GOOD MOOD,APOLOGIZED HOW SHE RESPONDED EARLIER AND REFUSING ALL HER MEDS.
[2021-10-13 02:00] VITALS: BP 124/73
[2021-10-13 06:00] VITALS: BP 138/75
[2021-10-13 06:04] LABS: POTASSIUM 3.5 MMOL/L (3.5-5.1)
[2021-10-13 06:18] LABS: MAGNESIUM 1.6 MG/DL (1.5-2.4)
[2021-10-13] MEDS: K and/or MAG REPLACEMENT MC SCH (06:58)
[2021-10-13] MEDS: apixaban 5mg tablet PO SCH (08:51)
[2021-10-13] MEDS: JUVEN Smoothie Arginine/Glut./Ca2+Bmb (Juven 19.3pkt) 240ml cup PO SCH (08:51)
[2021-10-13] MEDS: piperacillin/tazo 3.375gm/50ml 50 ML IV SCH (08:51)
[2021-10-13] MEDS: furosemide 20 MG/2 ML vial IV SCH (08:51)
[2021-10-13] MEDS: carVEDilol 3.125mg tablet PO SCH (08:52)
[2021-10-13] MEDS: linezolid 600mg tablet PO SCH (08:52)
[2021-10-13] MEDS: famotidine 20mg tablet PO SCH (08:52)
[2021-10-13] MEDS: ESCITALOPRAM OXALATE 5 MG TABLET PO SCH (08:52)
[2021-10-13] MEDS: spironolactone 50 MG tablet PO SCH (08:52)
[2021-10-13] MEDS: aspirin 81mg tab.chew PO SCH (08:52)
[2021-10-13 09:46] LABS: BASOPHILS # (AUTO) 0.1 X10'3 (0-0.2); EOSINOPHILS # (AUTO) 0.1 X10'3 (0-0.9); EOSINOPHILS % (AUTO) 1.8 % (0-6); HEMATOCRIT 24.7 % (35.0-45.0); HEMOGLOBIN 7.9 g/dl (12.0-16.0); LYMPHOCYTES # (AUTO) 0.8 X10'3 (1.1-4.8); LYMPHOCYTES % (AUTO) 13.5 % (21-51); MEAN CORPUSCULAR HEMOGLOBIN 26.5 PG (27.0-31.0); MEAN CORPUSCULAR HGB CONC 31.8 g/dL (33.0-36.5); MEAN CORPUSCULAR VOLUME 83.3 FL (78-98); MEAN PLATELET VOLUME 8.4 FL (7.4-10.4); MONOCYTES # (AUTO) 0.8 X10'3 (0-0.9); MONOCYTES % (AUTO) 12.3 % (2-12); NEUTROPHILS # (AUTO) 4.4 X10'3 (1.8-7.7); NEUTROPHILS % (AUTO) 71.4 % (42-75); PLATELET COUNT 383 X10'3 (140-440); RED BLOOD COUNT 2.97 X10'6 (4.20-5.60); RED CELL DISTRIBUTION WIDTH 18.3 % (11.5-14.5); WHITE BLOOD COUNT 6.2 X10'3 (4.5-11.0)
[2021-10-13 09:50] LABS: ALBUMIN 1.6 G/DL (3.4-5.0); ANION GAP 9 (8-16); BLOOD UREA NITROGEN 49 MG/DL (7-18); BUN/CREATININE RATIO 28.8 (6.6-38.0); CHLORIDE 98 MMOL/L (99-107); GLUCOSE 179 MG/DL (70-104); POTASSIUM 3.6 MMOL/L (3.5-5.1); SODIUM 136 MMOL/L (135-145); TOTAL CARBON DIOXIDE 29.2 MMOL/L (24-32); eGFR 33 ML/MIN
[2021-10-13] MEDS ORDERED: HYDROmorphone 1 mg/ml syringe IV PRN (09:55)
[2021-10-13] MEDS ORDERED: oxyCODONE/APAP 10/325mg tablet PO PRN (09:55)
[2021-10-13] MEDS ORDERED: HYDROmorphone inj. 0.5 MG/0.5 ML DISP.SYRIN IV PRN (09:55)
[2021-10-13 10:00] VITALS: BP 137/57
[2021-10-13 15:00] VITALS: BP 126/67
--- NOTE | 2021-10-13 17:40 | NUR ---
Patient discharged to [facility] for continued medical management. Patient discharged with all personal belongings including cell phone and conveyor line battery charger, and purse. Report called to facility nurse Johnson. Patient was transferred to [facility] with assist X 3 without incident.
[2021-10-13 18:00] VITALS: BP 151/68
== END 2021-10-13 17:15 | DRG 169 ==
LOC: ER 09:09 → ED HOLD 14:28 → ICU 2S 18:33 → MED 3N 10-04 17:00
PROVIDERS: ADMIT Internal Medicine; ATTEND Internal Medicine
PROC: B4101ZZ Fluoroscopy of Abdominal Aorta using Low Osmolar Contrast (ICD-10-PCS; 2021-09-23)
PROC: 04HK33Z Insertion of Infusion Device into Right Femoral Artery, Percutaneous Approach (ICD-10-PCS; 2021-09-23)
PROC: B41C1ZZ Fluoroscopy of Pelvic Arteries using Low Osmolar Contrast (ICD-10-PCS; 2021-09-23)
PROC: 3E05317 Introduction of Other Thrombolytic into Peripheral Artery, Percutaneous Approach (ICD-10-PCS; 2021-09-23)
PROC: B4201ZZ Computerized Tomography (CT Scan) of Abdominal Aorta using Low Osmolar Contrast (ICD-10-PCS; 2021-09-23)
PROC: B42H1ZZ Computerized Tomography (CT Scan) of Bilateral Lower Extremity Arteries using Low Osmolar Contrast (ICD-10-PCS; 2021-09-23)
PROC: 04CD0ZZ Extirpation of Matter from Left Common Iliac Artery, Open Approach (ICD-10-PCS; 2021-09-24)
PROC: 04CL0ZZ Extirpation of Matter from Left Femoral Artery, Open Approach (ICD-10-PCS; 2021-09-24)
PROC: 04CK0ZZ Extirpation of Matter from Right Femoral Artery, Open Approach (ICD-10-PCS; 2021-09-24)
PROC: 04CY0ZZ Extirpation of Matter from Lower Artery, Open Approach (ICD-10-PCS; 2021-09-24)
PROC: 04CL0ZZ Extirpation of Matter from Left Femoral Artery, Open Approach (ICD-10-PCS; 2021-09-24)
PROC: 04CK0ZZ Extirpation of Matter from Right Femoral Artery, Open Approach (ICD-10-PCS; 2021-09-24)
PROC: 04UL0KZ Supplement Left Femoral Artery with Nonautologous Tissue Substitute, Open Approach (ICD-10-PCS; 2021-09-24)
PROC: 04UK0KZ Supplement Right Femoral Artery with Nonautologous Tissue Substitute, Open Approach (ICD-10-PCS; 2021-09-24)
PROC: 3E05317 Introduction of Other Thrombolytic into Peripheral Artery, Percutaneous Approach (ICD-10-PCS; 2021-09-24)
PROC: 04CC0ZZ Extirpation of Matter from Right Common Iliac Artery, Open Approach (ICD-10-PCS; principal; 2021-09-24 11:25)
PROC: B4201ZZ Computerized Tomography (CT Scan) of Abdominal Aorta using Low Osmolar Contrast (ICD-10-PCS; 2021-09-25)
PROC: B42H1ZZ Computerized Tomography (CT Scan) of Bilateral Lower Extremity Arteries using Low Osmolar Contrast (ICD-10-PCS; 2021-09-25)
PROC: 30233N1 Transfusion of Nonautologous Red Blood Cells into Peripheral Vein, Percutaneous Approach (ICD-10-PCS; 2021-10-01)
PROC: 0Y960ZZ Drainage of Left Inguinal Region, Open Approach (ICD-10-PCS; 2021-10-10)
PROC: 0Y950ZZ Drainage of Right Inguinal Region, Open Approach (ICD-10-PCS; 2021-10-10)
DX: T82.898A Other specified complication of vascular prosthetic devices, implants and grafts, initial encounter (principal); I26.99 Other pulmonary embolism without acute cor pulmonale; J96.00 Acute respiratory failure, unspecified whether with hypoxia or hypercapnia; N17.0 Acute kidney failure with tubular necrosis; I50.43 Acute on chronic combined systolic (congestive) and diastolic (congestive) heart failure; I74.3 Embolism and thrombosis of arteries of the lower extremities; E83.51 Hypocalcemia; I95.9 Hypotension, unspecified; D68.59 Other primary thrombophilia; D62 Acute posthemorrhagic anemia; I74.5 Embolism and thrombosis of iliac artery; I42.9 Cardiomyopathy, unspecified; E11.22 Type 2 diabetes mellitus with diabetic chronic kidney disease; E11.42 Type 2 diabetes mellitus with diabetic polyneuropathy; Z20.822 Contact with and (suspected) exposure to COVID-19; E11.51 Type 2 diabetes mellitus with diabetic peripheral angiopathy without gangrene; N18.30 Chronic kidney disease, stage 3 unspecified; N28.0 Ischemia and infarction of kidney; Z66 Do not resuscitate; F12.90 Cannabis use, unspecified, uncomplicated; J44.9 Chronic obstructive pulmonary disease, unspecified; E11.65 Type 2 diabetes mellitus with hyperglycemia; E66.01 Morbid (severe) obesity due to excess calories; F15.90 Other stimulant use, unspecified, uncomplicated; E87.1 Hypo-osmolality and hyponatremia; K80.20 Calculus of gallbladder without cholecystitis without obstruction; M62.82 Rhabdomyolysis; F17.200 Nicotine dependence, unspecified, uncomplicated; I27.21 Secondary pulmonary arterial hypertension; I51.3 Intracardiac thrombosis, not elsewhere classified; I74.10 Embolism and thrombosis of unspecified parts of aorta; I99.8 Other disorder of circulatory system; Y83.8 Other surgical procedures as the cause of abnormal reaction of the patient, or of later complication, without mention of misadventure at the time of the procedure; L02.214 Cutaneous abscess of groin; Z79.01 Long term (current) use of anticoagulants; Z86.16 Personal history of COVID-19; Z86.718 Personal history of other venous thrombosis and embolism; Z79.899 Other long term (current) drug therapy; Z79.4 Long term (current) use of insulin; Y92.89 Other specified places as the place of occurrence of the external cause; Z68.41 Body mass index [BMI] 40.0-44.9, adult; D69.6 Thrombocytopenia, unspecified; E87.2 Acidosis; D72.823 Leukemoid reaction; K59.03 Drug induced constipation; T50.995A Adverse effect of other drugs, medicaments and biological substances, initial encounter; Y92.230 Patient room in hospital as the place of occurrence of the external cause; E87.5 Hyperkalemia; S30.1XXA Contusion of abdominal wall, initial encounter; B95.2 Enterococcus as the cause of diseases classified elsewhere
CPT/HCPCS: 36000; 36160; 36245; 36415; 36430; 36600; 37211; 37213; 71045; 71250; 72192; 73700; 73706; 74174; 74176; 75625; 75635; 75710; 76937; 80048; 80053; 80202; 81001; 82330; 82550; 82570; 82800; 82803; 82810; 82948; 83036; 83605; 83690; 83735; 84100; 84132; 84145; 84156; 84300; 85007; 85008; 85018; 85025; 85027; 85384; 85610; 85730; 86147; 86885; 86900; 86901; 86920; 87040; 87070; 87075; 87077; 87186; 87207; 87635; 93005; 93308; 93925; 93930; 93970; 96365; 96375; 97110; 97161; 97530; 97535; 99152; 99153; 99285; A4618; A6455; A6550; A7000; C1729; C1751; C1757; C1758; C1768; C1769; C1894; C9803; G0378; J0131; J0610; J0690; J1100; J1170; J1644; J1815; J1940; J2250; J2270; J2370; J2405; J2543; J2704; J2710; J2997; J3010; J3370; J3490; J7030; J7040; J7120; J7168; P9016; Q9963; Q9967